=== PATIENT | female | born 1970 | race Caucasian/White ===

== ENCOUNTER → 2018-06-19 11:52 | Outpatient (CLI) | payer BC, SELFPAY ==
[2018-06-21 11:59] LABS: HPV Reflexed? NOT INDICATED
== END ==
PROVIDERS: Visit Provider Obstetrics & Gynecology
DX: Z01.419 Encounter for gynecological examination (general) (routine) without abnormal findings (principal)
CPT/HCPCS: 88175; G0145

== ENCOUNTER → 2023-09-14 | Outpatient (CLI) | payer BC, SELFPAY ==
--- NOTE | 2023-09-13 | IMM_PTH ---
PATHOLOGY RESULTS PATIENT: GALINA RIVAS LOC: [facility] U#:[id number] AGE/SX: 53/F ROOM: RE09/14/[address]: Dr. Xiang Murphy MD : 1970 BED: DIS: 09/14/2023 SPEC #: [id number] RECD: 09/15/23 11:54 STATUS: ALYSSA REQ #: [id number] CAITLYN: 09/13/23 00:[address]: Xiang Murphy DEPT: IMMUNOHISTOCHEMISTRY RECD BY: Mandy Trammell ENTERED: 09/15/23 11:57 SP TYPE: IMMUNO Tissues: Abdominal wall, NOS Procedures: BCL-2 (add) BCL-6 (add) CD10 (add) CD138 (add) CD15 (add) CD20 (add) CD23 (add) CD3 (add) CD30 (add) CD43 (add) CD45 (add) CD5 (add) CD79A (add) CYCLIN (add) KAPPA (add) KI-67 (add) LAMBDA (add) P53 (add) Pankeratin (initial) PHYSICIAN & [address] [address] SPECIMEN INFORMATION: Tissue Source: Right abdominal wall mass Clinical Info: Abdominal wall mass Specimen Number: [id number] CPT code: 17935, 67533 x18 METHODOLOGY: Deparaffinized sections of prefer/formalin-fixed tissue or PAP/DQ stained slides are incubated with monoclonal/polyclonal antibodies/oligonucleotide probes. Localization is made via biotin free immunoperoxidase method. Appropriate controls are performed and reacted as expected. Results on target cell population are indicated in the following table: RESULTS: ANTIBODY / CLONE RESULT AE1-3 (AE1/AE3/PCK26) negative CD3 (PS1) positive CD5 (SP10) positive CD10 (56C6) negative CD15 (MMA) negative CD20 (L26) positive CD23 (1B12) negative CD30 (Tommie-H2) negative CD43 (L60) negative CD45 (RP2/18) positive CD79a (11E3) positive CD138 (B-A38) negative BCL-2 (bcl-2/100/D5) negative BCL-6 (WW999U/A8) negative [place] D1/BCL-1 (SP4) negative [place] (polyclonal) negative Lambda (polyclonal) negative P53 (DO-7) negative, null pattern Ki-67 (30-9) positive, low These tests were developed and their performance characteristics determined by [facility]. They may not have been cleared or approved by the [place]. Food and Drug Administration. The FDA has determined that such clearance or approval is not necessary. The above immunohistochemical/dualISH markers are ordered and reviewed by the Pathologist. INTERPRETATION: Abdominal wall mass, excisional biopsy: Benign lymph node tissue. AM:sofia 09/16/2023
--- NOTE | 2023-09-13 15:30 | MASS_PTH ---
PATHOLOGY RESULTS PATIENT: GALINA RIVAS LOC: [facility] U#:[id number] AGE/SX: 53/F ROOM: RE09/14/[address]: Dr. Xiang Murphy MD : 1970 BED: DIS: 09/14/2023 SPEC #: [id number] RECD: 09/14/23 08:41 STATUS: ALYSSA SAMY #: [id number] CAITLYN: 09/13/23 15:[address]: Xiang Murphy DEPT: SURGICAL PATHOLOGY RECD BY: Dior [place] ENTERED: 09/14/23 08:44 SP TYPE: Mass Tissues: Abdominal wall, NOS Procedures: Surgery Specimen Level IV HEADER OPERATION: Excisional biopsy of abdominal wall mass PRE-OP DIAGNOSIS: Abdominal wall mass TISSUE SUBMITTED: Right abdominal wall mass MICROSCOPIC DIAGNOSIS Right abdominal wall mass, biopsy: Benign lymph node tissue. See comment. AM:sofia 09/15/2023 COMMENT Immunohistochemistry ([id number]) supports the above diagnosis. Case has been reviewed in consultation with Dr. Jacboo who concurs with the above diagnosis. IDC:SJ MICROSCOPIC DESCRIPTION Slides are reviewed. GROSS DESCRIPTION Received in fixative is one container labeled with the patient's name and designated right abdominal wall mass. The specimen consists of two pieces of yellow adipose tissue measuring in aggregate 2.5 x 1.5 x 1.0 cm. Both pieces are bisected and reveal yellow adipose cut surfaces without area of hemorrhage, necrosis or cystic degeneration. The entire specimen is submitted in one cassette. / TONY:sofia 09/14/2023 TC:5 CPT: [id number]
== END | disposition home or self-care (01) ==
LOC: LABSPEC 08:23
PROVIDERS: Visit Provider Surgery
DX: R19.00 Intra-abdominal and pelvic swelling, mass and lump, unspecified site (principal)
CPT/HCPCS: 88304; 88305; 88341; 88342

== ENCOUNTER → 2024-03-02 | Outpatient (CLI) | payer BC, SELFPAY ==
[2024-03-07 15:08] LABS: HPV APTIMA, High Risk Negative (Negative)
== END | disposition home or self-care (01) ==
LOC: LABSPEC 16:59
PROVIDERS: Referring Provider Obstetrics & Gynecology; Visit Provider Obstetrics & Gynecology
DX: Z12.4 Encounter for screening for malignant neoplasm of cervix (principal)
CPT/HCPCS: 87624; 88175; G0145

== ENCOUNTER → 2024-03-09 | Outpatient (CLI) | payer BC, SELFPAY ==
--- NOTE | 2024-03-09 09:22 | BI_ITS ---
MAMMOGRAPHY - BILATERAL SCREENING REASON FOR EXAM: Female, 53 years old. Routine annual screening examination. PERTINENT HISTORY: Non-contributory. TECHNIQUE: Digital bilateral breast mellissa (3D mammographic acquisition) in the CC and MLO projections. 2-D mediolateral oblique (MLO) and craniocaudad (CC) views of both breasts were obtained. CAD: Full Field Digital Mammography with Computer Added Detection was performed. COMPARISON: Comparison is made with prior outside examination dated April 14, 2020. FINDINGS: Breast Composition: The breasts are heterogeneously dense, which may obscure small masses. There are no dominant masses or suspicious calcifications. Stable small benign-appearing bilateral axillary lymph nodes. No other significant abnormalities are identified. There has been no significant change since the prior study. BI/SCRN MAMM (CAD)W/MELLISSA BILAT IMPRESSION: Stable bilateral screening mammogram. Yearly follow-up mammogram recommended. (A) ASSESSMENT CATEGORY: BIRADS Category 2: Benign. A letter regarding these results will be sent to the patient by the facility within 30 days. Approximately 10% of breast cancers are not detected by mammography. A normal mammogram should not delay biopsy of a clinically suspicious abnormality. [id number] Electronically Signed: Lui Medrano MD at 10:05 EDT ,
== END | disposition home or self-care (01) ==
LOC: OPBI 09:20
PROVIDERS: Referring Provider Obstetrics & Gynecology; Visit Provider Obstetrics & Gynecology
DX: Z12.31 Encounter for screening mammogram for malignant neoplasm of breast (principal)
CPT/HCPCS: 77063; 77067

== ENCOUNTER → 2025-03-26 | Outpatient (CLI) | payer BC, SELFPAY ==
--- NOTE | 2025-03-26 07:57 | BI_ITS ---
EXAM: SCRN MAMM (CAD)W/MELLISSA BILAT DATE: 03/26/2025 CLINICAL HISTORY: F, Age 54 y/o , SCREENING MAMMOGRAM FOR BREAST CANCER TECHNIQUE: SCRN MAMM (CAD)W/MELLISSA BILAT No family history. COMPARISON: Prior exam(s) dated March 09, 2024.. FINDINGS: TISSUE DENSITY: The breasts are heterogeneously dense, which may obscure small masses. Bilateral Breast Mammographic Findings: No significant masses, calcifications or other abnormalities are identified. No suspicious masses, areas of developing architectural distortion, or suspicious calcifications. There has been no significant interval change. BI/SCRN MAMM (CAD)W/MELLISSA BILAT IMPRESSION: Stable examination. OVERALL FINAL ASSESSMENT BI-RADS 1: NEGATIVE. RECOMMEND ANNUAL MAMMOGRAPHIC SCREENING. RECOMMENDATION: Routine annual follow-up in 1 Year A letter with findings and recommendations will be mailed to the patient. Reading Location: [place] [address]
== END | disposition home or self-care (01) ==
LOC: OPBI 07:55
PROVIDERS: Referring Provider Obstetrics & Gynecology; Visit Provider Obstetrics & Gynecology
DX: Z12.31 Encounter for screening mammogram for malignant neoplasm of breast (principal)
CPT/HCPCS: 77063; 77067

== ENCOUNTER → 2025-04-01 | Outpatient (CLI) | payer BC, SELFPAY ==
--- NOTE | 2025-04-01 07:46 | US_ITS ---
PROCEDURE: BREAST LIMITED UNILATERAL 04/01/2025 REASON FOR EXAM: F, Age 54 y/o , ABNORMAL MAMMOGRAM OF LEFT BREAST COMPARISON: Prior mammogram dated March 26, 2025.. TECHNIQUE: BREAST LIMITED UNILATERAL FINDINGS: The lower inner quadrant of the left breast was examined with ultrasound. The mammographic abnormality corresponds to a 7 mm x 4 mm x 6 mm hypoechoic irregular density with posterior shadowing at the 9 o'clock position of the breast at 5 cm from the nipple. Biopsy recommended. US/Breast Limited Unilateral IMPRESSION: The mammographic abnormality corresponds to a 7 mm x 4 mm x 6 mm ill-defined hy poechoic nodular density at the 9 o'clock position of the breast at 5 cm from the nipple. There is evidence of posterior acoustic al shadowing. Biopsy recommended. BI-RADS 4: SUSPICIOUS ABNORMALITY. RECOMMENDATION: Biopsy Recommended Reading Location: [place] [address]
--- OUTSIDE RECORDS SUMMARY | 2025-04-01 08:07 | XMS RPT_ITS | CCD ---
Author Organization [facility] Care Team Providers Care City Auditor Name Role Phone Toney Agrawal Unavailable Unavailable Newbill, Toney Hairstonel Unavailable Unavailable No Doctor Assigned, Nodr Unavailable Unavail able Josiah, Ramiro K Unavailable Unavailable Josiah, Ramiro K Unavailable Unavailable No Doctor Assigned, Nodr Unavailable Unavail able Tanja, Toney Hairstonel Unavailable Unavailable Newbill, Toney Hairstonel Unavailable Unavailable No Doctor Assigned, Nodr Unavailable Unavail able Darya Dumas M Unavailable Unavailable ShrinerDarya M Unavailable Unavailable No Doctor Assigned, Nodr Unavailable Unavail able Vernalis TICKET ATTENDANT-Cash COOK Primary Care Provider Rodrigo, Mrs. Cash Beardenn Referring Unavailabl e Rodrigo, Mrs. Cash Beardenn Primary Care Unavailabl e Rodrigo, Mrs. Cash Beardenn Attending Unavailabl e Rodrigo, Mrs. Cash Beardenn Referring Unavailabl e Vernalis, Mrs. Cash Beardenn Primary Care Unavailabl e Rodrigo, Mrs. Cash Beardenn Attending Unavailabl e No, Physician Primary Care Provider Unavailabl e NO, PHYSICIAN Primary Care Unavailable ORVILLE CID Attending Unavailable RIKKI CHAVEZ Attending Unavailable ANALISA AGUAYO Admitting Unavailab le NO, PHYSICIAN Primary Care Unavailable ANALISA AGUAYO Referring Unavailab le RIKKI CHAVEZ Attending Unavailable ANALISA AGUAYO Admitting Unavailab ANALISA Villatoro Referring Unavailab le NO, PHYSICIAN Primary Care Unavailable ANALISA AGUAYO Attending Unavailab ANALISA Villatoro Admitting Unavailab le NO, PHYSICIAN Primary Care Unavailable RIKKI CHAVEZ Attending Unavailable ANALISA AGUAYO Admitting Unavailab ANALISA Villatoro Referring Unavailab le NO, PHYSICIAN Primary Care Unavailable ENDER FRANKLIN Attending Unavailable ANALISA AGUAYO Admitting Unavailab ANALISA Villatoro Referring Unavailab le NO, PHYSICIAN Primary Care Unavailable ANALISA AGUAYO Referring Unavailab le ASHLEY MORALES Attending Unavailable ANALISA AGUAYO Admitting Unavailab le NO, PHYSICIAN Primary Care Unavailable JIGNESH, RIKKI Attending Unavailable ANALISA AGUAYO Admitting Unavailab le NO, PHYSICIAN Primary Care Unavailable ANALISA AGAUYO Referring Unavailab le JIGNESH, RIKKI Attending Unavailable ANALISA AGUAYO Admitting Unavailab le NO, PHYSICIAN Primary Care Unavailable ANALISA AGUAYO Referring Unavailab le JIGNESH, RIKKI Attending Unavailable ANALISA AGUAYO Admitting Unavailab le CATRACHITO, ANALISA PATRICK Referring Unavailab le NO, PHYSICIAN Primary Care Unavailable JIGNESH, RIKKI Attending Unavailable ANALISA AGUAYO Referring Unavailab le CATRACHITO, ANALISA PATRICK Admitting Unavailab le NO, PHYSICIAN Primary Care Unavailable JIGNESH, RIKKI Attending Unavailable ANALISA AGUAYO Admitting Unavailab le CATRACHITOANALISA RAMIREZ Referring Unavailab le NO, PHYSICIAN Primary Care Unavailable JIGNESH, RIKKI Attending Unavailable ANALISA AGUAYO Admitting Unavailab le ANALISA AGUAYO Referring Unavailab le NO, PHYSICIAN Primary Care Unavailable JIGNESH, RIKKI Attending Unavailable ANALISA AGUAYO Admitting Unavailab le ANALISA AGUAYO Referring Unavailab le NO, PHYSICIAN Primary Care Unavailable JIGNESH, RIKKI Attending Unavailable ANALISA AGUAYO Admitting Unavailab le ANALISA AGUAYO Referring Unavailab le NO, PHYSICIAN Primary Care Unavailable JIGNESH, RIKKI Attending Unavailable ANALISA AGUAYO Admitting Unavailab le ANALISA AGUAYO Referring Unavailab le NO, PHYSICIAN Primary Care Unavailable ANALISA AGUAYO Referring Unavailab le ASHLEY MORALES Attending Unavailable ANALISA AGUAYO Admitting Unavailab le NO, PHYSICIAN Primary Care Unavailable ANALISA AGUAYO Referring Unavailab le JIGNESH, RIKKI Attending Unavailable ANALISA AGUAYO Admitting Unavailab le NO, PHYSICIAN Primary Care Unavailable NO, PHYSICIAN Primary Care Unavailable LEATHA HI Admitting Unavailable LEATHA HI Referring Unavailable NO, PHYSICIAN Primary Care Unavailable LEATHA HI Attending Unavailable ANALISA AGUAYO Referring Unavailab le CATRACHITOANALISA RAMIREZ Admitting Unavailab le NO, PHYSICIAN Primary Care Unavailable NO, PHYSICIAN Primary Care Unavailable ANALISA AGUAYO Attending Unavailab le NO, PHYSICIAN Primary Care Unavailable CATRACHITO, ANALISA PATRICK Referring Unavailab le CATRACHITO, ANALISA PATRICK Admitting Unavailab le NO, PHYSICIAN Primary Care Unavailable CATRACHITO, ANALISA PATRICK Attending Unavailab le NO, PHYSICIAN Primary Care Unavailable CATRACHITO, ANALISA PATRICK Attending Unavailab le CATRACHITO, ANALISA PATRICK Referring Unavailab le CATRACHITO, ANALISA PATRICK Admitting Unavailab le NO, PHYSICIAN Primary Care Unavailable NO, PHYSICIAN Primary Care Unavailable CATRACHITO, ANALISA PATRICK Attending Unavailab le Adenike Fonseca DO, Dr. Mera Attending Provider Dr. Samaria Correa DO Referring Provider Care Physician, No Primary Primary Care Provider Unavailable Care Physician, No Primary Referring Provider Un marty Rodríguez MD, Dr. Salena Mortensen Attending Provider Samaria Correa Attending Unavailabl e Care Physician, No Primary Primary Care Unava ilable Care Physician, No Primary Referring Unava ilSalena Hutchinson Attending Unavailable Salena Rodríguez Referring Unavailable Care Physician, No Primary Primary Care Unava ilable Salena Rodríguez Attending Unavailable Care Physician, No Primary Primary Care Unava ilable Samaria Correa Attending Unavailabl e Samaria Correa Referring Unavailabl e Medications Current Medications Medication Drug Class(es) Dates Sig (Normalized) Sig (Original) acetaminophen 500 mg oral tablet (20 sources) take 2 tablets by mouth every six hours as needed for pain acetaminophen (TYLENOL) 500 MG tablet Take 2 (two) tablets (1,000 mg total) by mouth every 6 (six) hours as needed for pain . Active acetaminophen 325 mg / HYDROcodone bitartrate 5 mg oral tablet (2 sources) Opioid Agonist Start: 09-18-2024 End: 09-25-2024 take 1 tablet by mouth every four hours as needed for pain HYDROcodone-acetami nophen (NORCO) 5-325 mg per tablet Indications: Closed fracture of left wrist, initial encounter Take 1 (one) tablet by mouth every 4 (four) hours as needed for pain Start: 09/18/24. 40 tablet 09/18/2024 09/25/2024 Active Start: 09-11-2024 End: 09-18-2024 take 1 tablet by mouth once in the evening as needed, then take 2 tablets by mouth every four hours as needed HYDROcodone-acetaminophen (NORCO) 5-325 mg per tablet Indications: Closed fracture of left wrist, initial encounter Take 1 (one) tablet to 2 (two) tablets by mouth every 4 (four) hours as needed . 30 tablet 09/11/2024 4:19 PM EST 09/11/2024 09/18/2024 Active acetaminophen 325 mg / oxyCODONE hydrochloride 5 mg oral tablet (2 sources) Opioid Agonist Start: 09-06-2024 End: 09-11-2024 oxyCODONE-acetaminophen (PERCOCET) 5-325 mg per tablet Indications: Closed fracture of left wrist, initial encounter Take 1 (one) tablet by mouth every 6 (six) hours as needed for pain (Days supply per fill: 5) . 20 tablet 09/06/2024 09/11/2024 Active AquaSculpt capsule (1 source) Start: 03-29-2025 AquaSculpt capsule Active PO March 29, 2025 12:00am cephalexin 500 mg oral capsule (1 source) Cephalosporin Antibacterial Start: 09-11-2024 End: 09-18-2024 take 1 capsule by mouth three times daily in the evening cephALEXin (KEFLEX) 500 MG capsule Take 1 (one) capsule (500 mg total) by mouth 3 (three) times a day for 7 days . 21 capsule 09/11/2024 4:19 PM EST 09/11/2024 09/18/2024 Active doxycycline hyclate 100 mg oral tablet (3 sources) Tetracycline-class Drug Start: 10-12-2024 End: 10-22-2024 take 1 tablet by mouth twice daily doxycycline hyclate (VIBRA-TABS) 100 MG tablet Indications: Closed fracture of left wrist with routine healing, subsequent encounter Take 1 (one) tablet (100 mg total) by mouth 2 (two) times a day for 10 days . 20 tablet 10/12/2024 10/22/2024 Active ketorolac tromethamine 10 mg oral tablet (2 sources) Nonsteroidal Anti-inflammatory Drug, Cyclooxygenase Inhibitor Start: 09-06-2024 take 1 tablet by mouth three times daily as needed for pain ketorolac (TORADOL) 10 mg tablet Take 1 (one) tablet (10 mg total) by mouth 3 (three) times a day as needed for pain . 15 tablet 09/06/2024 Active Problems Problem Classification Problem Date Documented Da te Episodic/Chronic Abdominal hernia (1 source) Umbilical hernia without obstruction or gangrene; Translations: [Umbilical hernia without obstruction or gangrene] Onset: 05-09-2023 Episodic Administrative/social admission (1 source) Worried well; Translations: [Person with feared health complaint in whom no diagnosis is made] 04-14-2023 Episodic Endometriosis (20 sources) Endometriosis (clinical); Translations: [Endometriosis, unspecified] Onset: 11-05-2005 04-14-2023 Chronic Fracture of upper limb (20 sources) Closed Colles' fracture; Translations: [Colles' fracture of left radius, initial encounter for closed fracture] Onset: 09-06-2024 09-10-2024 Episodic Other aftercare (2 sources) Encounter for follow-up examination after completed treatment for conditions other than malignant neoplasm; Translations: [Encounter for follow-up examination after completed treatment for conditions other than malignant neoplasm] Onset: 09-10-2024 Episodic Other diseases of kidney and ureters (1 source) Cyst of kidney, acquired; Translations: [Cyst of kidney, acquired] Onset: 05-09-2023 Episodic Other female genital disorders (1 source) History of endometriosis; Translations: [Personal history of other diseases of the female genital tract] 04-14-2023 Episodic Other gastrointestinal disorders (1 source) Finding of abdomen; Translations: [Right upper quadrant abdominal swelling, mass and lump] 04-14-2023 Episodic Other gastrointestinal disorders (2 sources) Right upper quadrant abdominal swelling, mass and lump; Translations: [Right upper quadrant abdominal swelling, mass and lump] Onset: 04-20-2023 Episodic Other injuries and conditions due to external causes (2 sources) Other injury of unspecified body region, initial encounter; Translations: [Other injury of unspecified body region, initial encounter] Onset: 11-23-2024 Episodic Other nutritional; endocrine; and metabolic disorders (1 source) Body mass index 30+ - obesity; Translations: [Obesity, unspecified] 04-14-2023 Chronic Other screening for suspected conditions (not mental disorders or infectious disease) (1 source) Abnormal findings on diagnostic imaging of other specified body structures; Translations: [Abnormal findings on dx imaging of oth body structures] Onset: 05-09-2023 Chronic Other screening for suspected conditions (not mental disorders or infectious disease) (4 sources) Mammography abnormal; Translations: [Other abnormal and inconclusive findings on diagnostic imaging of breast] Onset: 03-26-2025 03-29-2025 Episodic Other skin disorders (2 sources) Nodule of skin of abdomen; Translations: [Localized swelling, mass and lump, trunk] 09-22-2023 Episodic Regional enteritis and ulcerative colitis (20 sources) Crohn's disease of small AND large intestines; Translations: [Crohn's disease of both small and large intestine without complications] Onset: 09-24-2015 09-10-2024 Chronic Residual codes; unclassified (1 source) Postmenopausal state; Translations: [Asymptomatic menopausal state] 04-14-2023 Episodic Unclassified (2 sources) Closed fracture of left wrist 09-17-2024 Unclassified (2 sources) Injury Onset: 09-10-2024 Results Test Name Value Interpretation Reference Range Facility Surgery Visit Reporton 03-29 Surgery Visit Report [facility] [address] [place] [address] OFFICE VISIT Date of Service: 03/29/25 MR#: [id number] Acct: [id number] Name: GALINA SERRA Rep #: [id number] : 1970 Provider: Dr. Salena ruffin MD Age/Sex: 54/F Location: [facility] Status: Signed Intake Vital Signs 03/05/25 11:16 03/29/25 09:58 Height 5 ft 4 in 5 ft 4 in Weight: 182 lb 6 oz BMI 31.3 BP 118/89 H Blood Pressure Location Rt brachial Position Sitting Respiration 18 Pulse 74 Pulse Source Monitor Temp 97.2 F L Temp Source Temporal Pulse Oximetry (%) 99 Oxygen Delivery Method room air Intake Visit Reasons: BIRADS 4- MAMMO ONLY Chief Complaint: BIRADS 4- MAMMO ONLY Accompanied by: Is patient in pain?: No Allergies No Known Allergies Allergy (Verified 03/29/25 09:59) Medications ???Medication ???Instructions ???Recorded ???Confirmed ???Type AquaSculpt PO 03/29/25 History PFSH Medical History (Updated 03/29/25 @ 09:58 by Samira Lara LPN) Abnormal mammogram Surgical History H/O excision of mass Family History Uncle Myocardial infarction x3 Social History Smoking Status: Never smoker alcohol intake: never substance use type: does not use caffeine: No what type of physical activity do you participate in: none seatbelt use: always do you feel safe at home: Yes additional social history: - Analisa HPI HPI HPI: The patient is a 54-year-old female who presents today for discussion of a left breast biopsy. She underwent screening mammogram which was initially read as stable however it was later read read to show that there was some architectural distortion. Only further recommendation from radiology was biopsy was recommended. No ultrasound was obtained or recommended. Patient denies any family history of breast cancer. She herself denies any breast issues or complaints. She denies any breast tenderness, masses or nipple discharge. ROS General General: No weight change, appetite, fatigue, colon cancer, breast cancer or weakness HEENT HEENT: No difficulty swallowing, eye injury, eye surgery, swollen glands or hoarseness Endo Endocrine: No thyroid disease, diabetes mellitus, thyroid cancer, Hair loss, heat intolerance or cold intolerance Skin Skin: No rash or changing moles Breast Breast: Yes abnormal mammogram; No left breast lump, right breast lump, nipple discharge, breast pain, abnormal US or breast enlargement Musc Musculoskeletal: No back problems, arthritis, rheumatoid arthritis, gout or joint pain Cardio Cardiovascular: No murmur, pacemaker, heart disease, atrial fibrillation, high blood pressure, heart attack, heart stent, palpitations, shortness of breath with exertion or chest pain Psych Psychiatric: No depression, anxiety or hearing voices Resp Respiratory: No shortness of breath, No sleep apnea, No cough, No COPD, No asthma, No emphysema and No wheezing Gastro Gastrointestinal: No abdominal pain, No nausea or vomiting, No diarrhea, No constipation, No blood in stool, No acid reflux, No hemorrhoids, No ulcers, No gallbladder problem and No black,tarry stools Erlin Hematologic: No blood thinners, No blood disorders, No bleeding, No anemia and No blood clots Neuro Neurologic: No numbness, No tingling and No weakness Exam Const General: cooperative and comfortable HENCO Head: normal to inspection Eyes General: appearance normal, both eyes and all related structures Neck Neck: normal visual inspection Chest Breast Palpation: Yes normal palpation of the breasts and Yes normal palpation of the axillae Assessment and Plan Assessment and Plan (1) Abnormal mammogram: Status: Acute Orders: Orders Breast Limited Unilateral Today R92.8 - Other abnormal and inconclusive findings on diagnostic imaging of breast Patient Instructions: The patient is a 54-year-old female with an abnormal left breast mammogram showing a new area of architectural distortion per radiology. Biopsy was recommended. I offered her stereotactic biopsy. However, I also suggested that we get an ultrasound to investigate this area as well. I would like to get the ultrasound resulted before the biopsy. Patient is agreeable this plan. This will be scheduled in a timely manner. Coding Level of Care Code Off vis,new,level 4 Diagnoses Abnormal mammogram R92.8 03/29/25 1056 Date Salena Rodríguez MD Cosigner Signature: Date (if applicable) (more content not included)... Normal [facility] SCRN MAMM (CAD)W/MELLISSA BILATo n 03-26-2025 SCRN MAMM (CAD)W/MELLISSA BILAT [facility] [address] [place] [address] SCRN MAMM (CAD)W/MELLISSA BILAT MR#: [id number] Acct: [id number] Name: GALINA SERRA Rep #: [id number] : 1970 F 54 From: Lui kent MD PCP: Care Physician,No Primary Status: REG CLI Study: SCRN MAMM (CAD)W/MELLISSA BILAT Date of Exam: 05/13 Exam# [id number] Ordering Dr: Samaria Correa DO ADDENDUM by Dr. Lui Medrano MD on 03/26/25 at 1102 This is an addendum report. There is evidence of focal architectural distortion in the deep medial inferior aspect of the left breast. Biopsy recommended. BI-RADS category 4. Reading Location: [facility]-1 03/26/25 1103 Date cc: Dr. Samaria Correa DO; No Primary Care Physician * Signed EXAM: SCRN MAMM (CAD)W/MELLISSA BILAT DATE: 03/26/2025 CLINICAL HISTORY: F, Age 54 y/o , SCREENING MAMMOGRAM FOR BREAST CANCER TECHNIQUE: SCRN MAMM (CAD)W/MELLISSA BILAT No family history. COMPARISON: Prior exam(s) dated March 09, 2024.. FINDINGS: TISSUE DENSITY: The breasts are heterogeneously dense, which may obscure small masses. Bilateral Breast Mammographic Findings: No significant masses, calcifications or other abnormalities are identified. No suspicious masses, areas of developing architectural distortion, or suspicious calcifications. There has been no significant interval change. BI/SCRN MAMM (CAD)W/MELLISSA BILAT IMPRESSION: Stable examination. OVERALL FINAL ASSESSMENT BI-RADS 1: NEGATIVE. RECOMMEND ANNUAL MAMMOGRAPHIC SCREENING. RECOMMENDATION: Routine annual follow-up in 1 Year A letter with findings and recommendations will be mailed to the patient. Reading Location: [facility]--1 CC: Dr. Samaria Correa DO; No Primary Care Physician Junior Financial Analyst: Signed Normal [facility] Layboy Tender Office Visit Reporton 03-05-2025 Layboy Tender Office Visit Report [facility], [address] [place] [address] OFFICE VISIT Date of Service: 03/05/25 MR#: [id number] Acct: [id number] Name: GALINA SERRA Rep #: [id number] : 1970 Provider: Dr. 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 Is patient in pain?: No Allergies No Known Allergies Allergy (Verified 03/05/25 11:15) Medications ???Medication ???Instructions ???Recorded ???Confirmed ???Type NK 07/01/23 03/05/25 History Post menopausal: No Patient : No : No PFSH Surgical History H/O excision of mass Family History Uncle Myocardial infarction x3 Social History (Updated 03/05/25 @ 11:16 by Rianna Reed) Smoking Status: Never smoker alcohol intake: never substance use type: does not use caffeine: No what type of physical activity do you participate in: none seatbelt use: always do you feel safe at home: Yes additional social history: - Analisa History 2 Elective abortions Hx Para 2 Spontaneous abortions Hx # Term Pregnancies Ectopic pregnancies Hx # Pregnancies Multiple births # of living children Past Pregnancies Del. Date Name GA/Weeks Outcome Route Bth Weight Infant Gen Labor Lgth Anesthesia Del Locatn Provider FOB Unknown Yamel Unknown [place] [facility] Encounter for routine gynecological examination Details: GALINA SERRA is a 54 year old who presents for annual exam. Last PAP:03/02/2024 History of abnormal PAP: n/a Last mammogram: 03/09/2024 History of abnormal mammogram: no Colon cancer screening: up to date Other preventative health care screenings: followed by pcp, no longer pre-diabetic. recently lost 20 pounds on purpose. Female Reproductive History Questions: metorrhagia: No, sexually active: Yes, dyspareunia: No and PCB: No Menopausal Symptoms: No hot flashes, No night sweats, No weight change, No mood changes, No difficulty concentrating, No sleep problems and No change in libido ROS Const Constitutional: Reports as per HPI; Denies fatigue, increased appetite, poor appetite, night sweats, weight gain or weight loss Cardio Card: Denies chest pain Resp Resp: Denies cough or dyspnea GI GI: Reports as per HPI; Denies abdominal pain, bloating, constipation, nausea or vomiting : Reports as per HPI and other; Denies difficulty voiding, dysuria, hematuria, hot flashes, nipple discharge, pelvic pain, prolapse symptoms, urinary frequency, urinary incontinence, urinary urgency, vaginal discharge, vaginal dryness, vaginal odor or vaginal pruritus Skin Skin/Breast: Denies changing lesions, breast mass, breast pain, breast skin changes or nipple discharge Psych Psych: Denies anxiety, change in libido, depression or difficulty concentrating Exam Const General: cooperative, healthy appearing, comfortable, no acute distress, well developed and well groomed HENMT Head: normal to inspection and normocephalic Ears: hearing grossly normal bilaterally and external ears normal Nose: external nose normal Face and sinus: normal facial exam Neck Neck: normal visual inspection, full ROM and no lymphadenopathy Thyroid: thyroid normal Chest Chest palpation inspection: normal inspection of the chest Breast inspection: normal inspection of the breasts and normal inspection of the axillae Breast palpation: normal palpation of the breasts, normal palpation of the axillae and no axillary lymphadenopathy Resp Effort Inspection: normal respiratory effort GI Inspection: normal to inspection and non-distended Palpation: soft, no hepatosplenomegaly and no guarding General: bladder normal to palpation External Female Exam: normal external appearance, normal appearance of the urethra and no lesions Urethra: normal appearance of the urethra and normal palpation Speculum Exam - Vagina: normal appearance of the vagina and normal vaginal discharge Speculum Exam - Cervix: normal appearance of the cervix, no cervical discharge, no lesions and nontender Bimanual Exam- Vagina Uterus: normal bimanual exam, uterine size normal, bladder normal to palpation, No tender, uterine mobility normal, consistency normal, non-tender and no cervical motion tenderness Bimanual Exam- Adnexa, other: normal adnexae, no masses and non-tender Skin General: no rashes or lesions noted Neuro General: patient alert, moves all extremities and no foca (more content not included)... Normal [facility] XR WRIST LEFT 2 VIEWSon 03-0 7-2025 XR WRIST LEFT 2 VIEWS EXAMINATION: XR WRIST LEFT 2 VIEWS 11/23/2024 1:28 pm HISTORY: ORDERING SYSTEM PROVIDED HISTORY: Fracture, TECHNOLOGIST PROVIDED HISTORY: Injury/Trauma Reason for exam: P/O Left wrist ORIF 09/11/25 Cancer History: no Surgery, RadiationHistory: none Encounter Type: Subsequent/Follow-up Mechanism of injury: Fall down steps ORDERING SYSTEM PROVIDED DIAGNOSIS CODES: T14.8XXA Fracture COMPARISON: 10/26/2024. FINDINGS: Two views of the left wrist were obtained. There are postsurgical findings of volar plate and screw fixation distal radius. Fracture line is poorly visualized on today's study. Ulnar styloid fracture appears similar to prior. Soft tissue edema noted around the wrist. IMPRESSION: Near complete healing of distal radius fracture, status post ORIF. Similar appearance ulnar styloid fracture. [facility] Workstation ID: [id number] Dictated by: SALENA LO on TueNov 23, 2024 4:08:58 PM EST Transcribed by: SUSAN GILMORE on TueNov 23, 2024 4:19:24 PM EST Finalized by: SALENA LO on TueNov 23, 2024 4:21:05 PM EST Normal [facility] Comment on above: Order Comment: Injury/Trauma or Illness? :Injury/Trauma How long have you had these symptoms (acute/chronic)?:Acute Reason for exam?:P/O Left wrist ORIF 09/11/25 History of cancer?:no Surgeries, chemotherapy, or radiation?:none Type of Exam?:Subsequent/Follow-up Mechanism of injury?:Fall down steps XR WRIST LEFT 2 VIEWSon XR WRIST LEFT 2 VIEWS EXAMINATION: XR WRIST LEFT 2 VIEWS 10/26/2024 2:45 pm HISTORY: ORDERING SYSTEM PROVIDED HISTORY: Follow-up exam, TECHNOLOGIST PROVIDED HISTORY: Injury/Trauma Reason for exam: P/O left wrist ORIF 09/11/24 Cancer History: no Surgery, RadiationHistory: none Encounter Type: Subsequent/Follow-up Mechanism of injury: Fell down steps ORDERING SYSTEM PROVIDED DIAGNOSIS CODES: Z09 Follow-up exam COMPARISON: Radiographs left wrist 09/28/2024. FINDINGS: There are postsurgical changes again seen from prior open reduction internal fixation of a comminuted fracture of the distal radius and the fracture remains in near anatomic alignment. There appears to have been interval progressive healing of this fracture. No hardware complication is seen. There is a small 3 mm cortical avulsion fracture of the tip of the ulnar styloid process again seen to be displaced distally 2 mm. No new fracture is seen. IMPRESSION: 1. Progressive interval healing of a comminuted fracture of the distal radius without evidence of hardware complication from prior open reduction internal fixation. 2. Similar appearance of a small displaced cortical avulsion fracture of the tip of the ulnar styloid process. Workstation ID: [id number] Dictated by: MARY ELLEN RENTERIA on TueOct 30, 2024 11:33:27 AM EST Transcribed by: MARY ELLEN RENTERIA on TueOct 30, 2024 11:33:27 AM EST Finalized by: MARY ELLEN RENTERIA on TueOct 30, 2024 11:33:27 AM EST Normal [facility] Comment on above: Order Comment: Injury/Trauma or Illness? :Injury/Trauma How long have you had these symptoms (acute/chronic)?:Acute Reason for exam?:P/O left wrist ORIF 09/11/24 History of cancer?:no Surgeries, chemotherapy, or radiation?:none Type of Exam?:Subsequent/Follow-up Mechanism of injury?:Fell down steps XR WRIST LEFT 2 VIEWSon 09-19 XR WRIST LEFT 2 VIEWS EXAMINATION: XR WRIST LEFT 2 VIEWS 09/28/2024 3:45 pm HISTORY: Fracture Injury/Trauma or Illness?:Injury/Trauma How long have you had these symptoms (acute/chronic)?:Acute Reason for exam?:p/o left wrist ORIF 09/11/24 History of cancer?:no Surgeries, chemotherapy, or radiation?:none T14.8XXA Fracture COMPARISON: 09/10/2024 TECHNIQUE: PA and lateral FINDINGS: There has been interval placement of a volar fixation plate and screws transfixing the distal radial fracture. Alignment appears anatomic. There is avulsion of a small crescentic fragments from the tip of the ulnar styloid with lateral displacement, partially reduced. There is a probable nonacute dorsal triquetral avulsion fracture. IMPRESSION: ORIF distal radial fracture. Workstation ID: [id number] Dictated by: BENITA BLOOD on Sat Sep 29, 2024 10:51:31 AM EST Transcribed by: BENITA BLOOD on Sat Sep 29, 2024 10:51:31 AM EST Finalized by: BENITA BLOOD on Sat Sep 29, 2024 10:51:31 AM EST Normal [facility] Comment on above: Order Comment: Injury/Trauma or Illness? :Injury/Trauma How long have you had these symptoms (acute/chronic)?:Acute Reason for exam?:p/o left wrist ORIF 09/11/24 History of cancer?:no Surgeries, chemotherapy, or radiation?:none Type of Exam?:Subsequent/Follow-up Mechanism of injury?:fall down basement steps OP NOTEon 09-11-2024 OP NOTE ATTENDING PHYSICIAN ANALISA AGUAYO MD PRIMARY CARE PHYSICIAN PHYSICIAN NO ADMITTING PHYSICIAN ANALISA AGUAYO MD PREOPERATIVE DIAGNOSE Intra-articular displaced comminuted left distal radius fracture. POSTOPERATIVE DIAGNOSIS Intra-articular displaced comminuted left distal radius fracture. PROCEDURE Open reduction internal fixation left distal radius fracture. ANESTHESIA General anesthetic. COMPLICATIONS Intraoperative complications. SPECIMENS None. ESTIMATED BLOOD LOSS 5 cc. HISTORY Galina is a 54-year-old patient with significant history of mechanical fall sustaining the intra-articular displaced comminuted left distal radius fracture, presents for open reduction internal fixation. She explained all of the risks and complications of surgery including, but not limited to the risk of infection, bleeding, neurologic or vascular injury, the possibility of deep venous thrombosis, pulmonary embolism, myocardial infarction, stroke, or even with surgery. Explained the possibilities of continued pain, stiffness, loss of range of motion, as well as the need for future surgery. Given all the options of anesthetic per the anesthesia team and elected for a general anesthetic. PROCEDURE IN DETAIL Patient was met in the preoperative holding area where the left wrist was confirmed to be the appropriate site and marked by myself. Patient was taken to the operative suite, given preoperative Kefzol per protocol as well as a general anesthetic. Left arm was placed in proximal tourniquet. Left arm was sterilely prepped and draped using ChloraPrep solution. After sterilization of the left wrist we did our final time-out to confirm that the left wrist was the appropriate site that had been marked by myself. We then went ahead and proceeded forward with elevation of the left arm tourniquet. Skin incision was made. Flexor carpi radialis and radial artery identified and protected. At this time, the pronator quadratus was removed off the distal radial fracture. Fracture was anatomically reduced and held with a Synthes distal radial locking plate. After anatomic fixation, fluoroscopy images were saved. The tourniquet was let down. Bleeders were coagulated. Wound was irrigated. Vancomycin powder was sprinkled over the contact surface areas of the distal radial plate. Wound was then closed with 4-0 Monocryl and skin gurwinder. Patient was placed in a Mepilex dressing, cock-up wrist brace, extubated, and taken to PACU without intraoperative complication. D 09/11/2024 17:22 [id number] T 09/11/2024 17:46 MCB/MODL AUTHENTICATED BY ANALISA AGUAYO, ON 09/11/2024 18:06:59 [facility] XR OR WRIST LEFT 2 VIEWSon 1 11-12-2023 XR OR WRIST LEFT 2 VIEWS EXAMINATION: XR OR WRIST LEFT 2 VIEWS 09/11/2024. HISTORY: ORDERING SYSTEM PROVIDED HISTORY: ORIF, TECHNOLOGIST PROVIDED HISTORY: Injury/Trauma Reason for exam: ORIF Encounter Type: Subsequent/Follow-up Mechanism of injury: FALL Fluoro dose in mGy: 0.37 ORDERING SYSTEM PROVIDED DIAGNOSIS CODES: S62.102A Closed fracture of left wrist, initial encounter COMPARISON: Radiographs left wrist 09/10/2024. TECHNIQUE: RADIATION EXPOSURE: Fluoro dose in Ka,r mGy: 0.37 2 intraoperative views of the left wrist were obtained. FINDINGS: A small displaced avulsion fracture of the tip of the ulnar styloid process is again seen in similar position. There has been placement of a volar plate and multiple cortical screws in the distal radius and this fixes the comminuted intra-articular fracture of the distal radius in near anatomic alignment. An immediate interpretation of this study was not requested at the time of surgery. IMPRESSION: Interval open reduction internal fixation of a comminuted intra-articular fracture of the distal radius. Workstation ID: [id number] Dictated by: MARY ELLEN RENTERIA on TueSep 13, 2024 9:30:34 AM EST Transcribed by: MARY ELLEN RENTERIA on TueSep 13, 2024 9:30:34 AM EST Finalized by: MARY ELLEN RENTERIA on TueSep 13, 2024 9:30:34 AM EST [facility] Comment on above: Order Comment: Injury/Trauma or Illness? :Injury/Trauma How long have you had these symptoms (acute/chronic)?:Acute Reason for exam?:ORIF Type of Exam?:Subsequent/Follow-up Mechanism of injury?:FALL Fluoro time in minutes:0.35 Fluoro dose in mGy?:0.37 XR WRIST LEFT 3+ VIEWS (FERNANDO BENSON)on 09-10-2024 XR WRIST LEFT 3+ VIEWS (STANDARD) EXAMINATION: XR WRIST LEFT 3+ VIEWS (STANDARD) 09/10/2024 2:50 pm HISTORY: ORDERING SYSTEM PROVIDED HISTORY: Follow-up exam, TECHNOLOGIST PROVIDED HISTORY: Injury/Trauma Reason for exam: Left wrist fracture follow up after falling down stairs 09/06/24 Cancer History: no Surgery, RadiationHistory: none Encounter Type: Subsequent/Follow-up Mechanism of injury: Fall ORDERING SYSTEM PROVIDED DIAGNOSIS CODES: Z09 Follow-up exam COMPARISON: Left wrist 09/06/2024. FINDINGS: Frontal, oblique and lateral views for 3 views were obtained. IMPRESSION: 1. Acute comminuted impacted intra-articular fracture deformity of the distal radius is again noted. Fracture lines extend to the distal radiocarpal and distal radioulnar articulations. There is similar apex volar angulation with dorsal tilting of the distal radial articular surface with overlapping soft tissue swelling again noted. 2. Age-indeterminate avulsion fracture deformities associated with the ulnar styloid and triquetrum again suspected. 3. There is no radiopaque foreign body. SKS/cdr Workstation ID: [id number] Dictated by: SHANTI GUADARRAMA on TueSep 11, 2024 8:12:35 AM EST Transcribed by: VALENCIA GONZALES on TueSep 11, 2024 8:23:09 AM EST Finalized by: SHANTI GUADARRAMA on TueSep 11, 2024 12:02:31 PM EST Normal [facility] Comment on above: Order Comment: Injury/Trauma or Illness? :Injury/Trauma How long have you had these symptoms (acute/chronic)?:Acute Reason for exam?:Left wrist fracture follow up after falling down stairs 09/06/24 History of cancer?:no Surgeries, chemotherapy, or radiation?:none Type of Exam?:Subsequent/Follow-up Mechanism of injury?:Fall ED Prov Noteon 09-06-2024 ED Prov Note HPI: 09/06/2024, Time: @SOFIYA@ Galina Serra is a 54 y.o. female presenting to the ED for left wrist injury after tripping and falling down 7 steps landing on the tile, beginning just prior to arrival ago. The complaint has been constant, moderate in severity, and worsened by changing position. No numbness. Denies neck pain and no head injury ROS: Pertinent positives and negatives are stated within HPI, all other systems reviewed and are negative. PAST HISTORY Past Medical History: @[facility]@ Past Surgical History: has a past surgical history that includes Section. Social History: reports that she has never smoked. She has never used smokeless tobacco. She reports that she does not drink alcohol and does not use drugs. Family History: family history is not on file. The patient's home medications have been reviewed. Allergies: Patient has no known allergies. RESULTS All laboratory and radiology results have been personally reviewed by myself LABS: No results found for this or any previous visit. RADIOLOGY: Interpreted by Radiologist. XR Wrist Left 3+ Views (Standard) (Results Pending) NURSING NOTES AND VITALS REVIEWED -- The nursing notes within the ED encounter and vital signs as below have been reviewed. BP (!) 155/88 (BP Location: Left arm, Patient Position: Sitting) Pulse 77 Temp 98.2 degrees F (36.8 degrees C) (Temporal) Resp 18 Ht 5' 4 Wt 84.4 kg (186 lb) SpO2 99% BMI 31.93 kg/m Oxygen Saturation Interpretation: Normal -PHYSICAL EXAM Constitutional/General: Alert and oriented x3, well appearing, non toxic in moderate apparent pain Head: NC/AT Eyes: PERRL, EOMI Mouth: Oropharynx clear, handling secretions, no trismus Neck: Supple, full ROM, no meningeal signs Pulmonary: Lungs clear to auscultation bilaterally, no wheezes, rales, or rhonchi. Not in respiratory distress Cardiovascular: Regular rate and rhythm, no murmurs, gallops, or rubs. 2+ distal pulses Abdomen: Soft, non tender, non distended, Extremities: Moves all extremities x 4. Warm and well perfused, left wrist: Moderate tenderness and swelling and obvious deformity, neurovasc intact with good pulses and cap refill less than 2 seconds in the fingers Skin: warm and dry without rash Neurologic: GCS 15, Psych: Normal Affect ----- ED COURSE/MEDICAL DECISION MAKING --- Medications oxyCODONE-acetaminophen (PERCOCET) 5-325 mg per tablet 1 tablet (has no administration in time range) ketorolac (TORADOL) injection 30 mg (30 mg Intramuscular Given 09/06/242104) Medical Decision Making: Will apply splint and pain control with Percocet for home and orthopedic referral Counseling: The emergency provider has spoken with the patient and discussed today's results, in addition to providing specific details for the plan of care and counseling regarding the diagnosis and prognosis. Questions are answered at this time and they are agreeable with the plan. -------- IMPRESSION AND DISPOSITION -------- IMPRESSION 1. Closed fracture of left wrist, initial encounter DISPOSITION Disposition: discharged to home Patient condition is stable Summation Patient Course: Improved ED Medications administered this visit: Medications oxyCODONE-acetaminophen (PERCOCET) 5-325 mg per tablet 1 tablet (has no administration in time range) ketorolac (TORADOL) injection 30 mg (30 mg Intramuscular Given 09/06/242104) New Prescriptions from this visit: New Prescriptions oxyCODONE-acetaminophen (PERCOCET) 5-325 mg per tablet Take 1 (one) tablet by mouth every 6 (six) hours as needed for pain (Days supply per fill: 5) . ketorolac (TORADOL) 10 mg tablet Take 1 (one) tablet (10 mg total) by mouth 3 (three) times a day as needed for pain . oxyCODONE-acetaminophen (PERCOCET) 5-325 mg per tablet Take 1 (one) tablet by mouth every 6 (six) hours as needed for pain TAKE HOME PACK . Follow-up: Analisa Aguayo MD [address] [place] [phone] In 2 days Final Impression: 1. Closed fracture of left wrist, initial encounter (Please note that portions of this note were completed with a voice recognition program. Efforts were made to edit the dictations but occasionally words are mis-transcribed.) Orville Cid MD 09/06/242154 AUTHENTICATED BY ORVILLE CID, ON 09/06/2024 21:55:17 [facility] XR WRIST LEFT 3+ VIEWS (FERNANDO BENSON)on 09-06-2024 XR WRIST LEFT 3+ VIEWS (STANDARD) EXAMINATION: XR WRIST LEFT 3+ VIEWS (STANDARD) 09/06/2024 8:59 pm HISTORY: ORDERING SYSTEM PROVIDED HISTORY: Injury, TECHNOLOGIST PROVIDED HISTORY: Injury/Trauma Reason for exam: fall, pain to lt wrist Cancer History: no Surgery, RadiationHistory: none Encounter Type: Initial Mechanism of injury: fall ORDERING SYSTEM PROVIDED DIAGNOSIS CODES: COMPARISON: None IMPRESSION: FINDINGS/ 1. Comminuted intra-articular fracture of the distal radius with approximately 30 degrees dorsal angulation. 2. Displaced ulnar styloid avulsion fracture. 3. Possible avulsion fracture of the triquetrum. Correlation for point tenderness is recommend 4. Regional soft tissue swelling. No radiopaque foreign body Workstation ID: [id number] Dictated by: RENARD LARSON on TueSep 06, 2024 10:28:14 PM EST Transcribed by: RENARD LARSON on TueSep 06, 2024 10:28:14 PM EST Finalized by: RENARD LARSON on Velia Sep 06, 2024 10:28:14 PM EST Normal [facility] Comment on above: Order Comment: Injury/Trauma or Illness? :Injury/Trauma How long have you had these symptoms (acute/chronic)?:Acute Reason for exam?:fall, pain to lt wrist History of cancer?:no Surgeries, chemotherapy, or radiation?:none Type of Exam?:Initial Mechanism of injury?:fall CT ABDOMEN AND PELVIS W IV C [facility] 05-09-2023 CT ABDOMEN AND PELVIS W IV CONTRAST Patient Name: GALINA SERRA STUDY: CT ABDOMEN AND PELVIS W IV CONTRAST; 05/09/2023 10:18 am INDICATION: see dx. COMPARISON: Ultrasound dated 04/20/2023 demonstrated a suspected lipoma in the right lower quadrant ACCESSION NUMBER(S): [id number] ORDERING CLINICIAN: CASH SANCHEZ TECHNIQUE: CT of the abdomen and pelvis was performed. 12 mL Omnipaque in 500 mL oral contrast, 90 mL Omnipaque 350 IV FINDINGS: LOWER CHEST: Images of the lung bases show no infiltrate or pleural fluid. There is mild scarring in the right middle lobe and lingula ABDOMEN: LIVER: There is no hepatic mass. BILE DUCTS: There is no intrahepatic, common hepatic or common bile ductal dilatation. GALLBLADDER: The gallbladder is unremarkable. PANCREAS: The pancreas is unremarkable. SPLEEN: The spleen is unremarkable. There is no splenic mass or splenomegaly. ADRENAL GLANDS: The adrenal glands are unremarkable. KIDNEYS AND URETERS: The kidneys function symmetrically. There is a small benign subcentimeter right renal cyst. There is no intrarenal calculus or hydronephrosis. BOWEL: There is no bowel wall thickening, dilatation or obstruction. The appendix is normal. VESSELS: The abdominal and pelvic vessels are unremarkable. PERITONEUM/RETROPERITONEU M/LYMPH NODES: There is no retroperitoneal or pelvic adenopathy. There is no ascites. ABDOMINAL WALL: Specifically no lipoma is seen along the abdominal wall. There is a nonspecific 0.6 cm soft tissue nodule in the subcutaneous fat of the right lateral abdominal wall. This is not abutting the dermis. This does not abut the abdominal wall vasculature this is a nonspecific soft tissue nodule. It is not known if the patient undergoes any subcutaneous injections to suggest a soft tissue granuloma. There is a small nonindurated nonincarcerated fat containing periumbilical hernia. BONE AND SOFT TISSUE: There is no acute osseous finding. There is no soft tissue abnormality. There are bilateral Essure devices in the adnexae IMPRESSION: 1. 0.6 cm soft tissue nodule deep subcutaneous fat right lateral abdominal wall, nonspecific. 2. No lipoma abdominal wall. 3. Small nonindurated nonincarcerated fat containing periumbilical hernia. 4. Small benign right renal cyst. 5. Bilateral Essure devices. Electronically signed by: HARESH MARSHALL MD [facility] US ABDOM Ebonie 04-20-2023 US ABDOM MASS Patient Name: GALINA SERRA STUDY: US ABDOM MASS; Right; 04/20/2023 7:40 am INDICATION: lump RUQ/laterally. COMPARISON: None. ACCESSION NUMBER(S): [id number] ORDERING CLINICIAN: CASH SANCHEZ TECHNIQUE: Routine ultrasound of the right lower quadrant was performed with transverse and sagittal images submitted for interpretation. FINDINGS: In the area examined in the right lower quadrant where the patient feels a mass, a hyper echoic nodule is seen measuring 4 x 3 x 4 mm. This is compatible with a lipoma. IMPRESSION: Suspect lipoma, in the right lower quadrant where the patient complains of a mass or nodule. Follow-up with CT scanning of this area is recommended. MACRO: None Electronically signed by: ENRIQUETA SCALES MD [facility] CNOVon 03-25-2021 CNOV Office Visit (INTMWS ) ----- GALINA SERRA ([id number]) 1970 F Date Time Provider Department 03/25/21 1:00 PM REBECA PAYNE During your visit today, we recorded the following information about you: Temperature Pulse Respiration Blood pressure 97.5 degrees 85/minute 12/minute 132/62 Weight Height Last Period 89.4 kg 1.626 m 09/05/15 Rebeca Payne MD 03/25/2021 9:41 PM Signed Reason for Visit Patient presents with: Establish Care: establish care and insurance forms Galina Serra is a 50 year old female who presents here today for CPE. Health Maintenance DEPRESSION SCREENING COVID-19 VACCINE(1) HEPATITIS C SCREENING HIV SCREENING DTAP,TDAP,TD(1 - Tdap) PAP TESTING HPV TESTING MAMMOGRAM LIPID SCREEN DIABETES SCREEN SHINGRIX VACCINE(1 of 2) HPI Reviewed her labs her hba1c is 5.5. cbc, cmp are normal. The lipids show her ldl is on the higher side.. at around 135.. She bakes but tries not to eat as much as she bakes. High LDL- 20 mins of walking daily was discussed.... diet: she Has been trying to cut out carbs as much as possible. Obesity-bmi is 33... she has lost around 7 pounds in the past 2 weeks, she does her own gardening, she gardens around an hour or 2, pulling weeds and harvesting all that she has. She puts in 5 to 7 hours daily. She slows down every so often. 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 We discussed walking some time in her work as she gets up in the morning around 4 and sleeps around 10:30 And up around 4. She has been gaining weight due to menopause. It has been a year since her periods. She got her period last February, she is in official menopause. She did have her colonoscopy , had it done by Dr Mckeon The last time she had the pap And pelvic was couple years ago. Patient does snore when she is tired... she does not have issues with sleeping. Feels well, peppy most days No problem-specific Assessment AND Plan notes found for this encounter. PAST MEDICAL HISTORY Diagnosis Date - Obesity PAST SURGICAL HISTORY Procedure Laterality Date - , CLASSIC, IN-HOSP CARE 2008 - COLONOSCOP W/ OR W/O [facility] SPEC 10/07/2015 Repeat 2025 - PAST SURGICAL HISTORY OF Bilateral 1987 bone spurr removal - PAST SURGICAL HISTORY OF multiple surgies for endometriosis - TUBAL LIGATION HX 2010 FAMILY HISTORY Problem Relation Age of Onset - Cancer Maternal Uncle Social History Tobacco Use - Smoking status: Never Smoker - Smokeless tobacco: Never Used Substance Use Topics - Alcohol use: No - Drug use: No Past medical history, appointments, medications, allergies reviewed. Pertinent Lab/Diagnostic Studies are reviewed and discussed today Current Outpatient Medications: - oxyCODONE-acetaminophen (PERCOCET) 5-325 mg tablet Review of Systems CONSTITUTIONAL: No fevers, chills, nightsweats, unintended weight loss HEENT: Denies frequent or severe heaches, nasal congestion/sinus symptoms, problematic allergy problems. EYES: No diplopia or blurry vision. CARDIOVASCULAR: No chest pain, dyspnea, palpitations, orthopnea, PND, ankle edema. PULM: No dyspnea, unexplained cough. GI: No dysphagia/odynophagia, problematic reflux, constipation, diarrhea, changes in stool habits, hematochezia, melena. : No new urinary complaints, including dysuria, gross hematuria or pyuria. NEURO: No new balance problems, peripheral weakness/paresthesias or numbness of concern. MUSC-SKEL: No new joint pain, swelling, or erythema. PSY: No concerns regarding depression, anxiety or panic. INTEGUMENTARY: No new skin changes (rash, new or changing mole, new growth) Physical Exam BP 132/62 (BP Site: Left Arm, BP Position: Sitting, BP Cuff Size: Large Adult) Pulse 85 Temp 36.4 ?C (97.5 ?F) Resp 12 Ht 162.6 cm (5' 4) Wt 89.4 kg (197 lb) LMP 09/05/2015 (Exact Date) SpO2 97% BMI 33.81 kg/m? General appearance: Well appearing, alert, in no acute distress, well-hydrated, well nourished. Skin: Skin color, texture, turgor normal, no suspicious rashes or lesions Head: Normocephalic, no masses, lesions, tenderness or abnormalities Eyes: Anicteric sclera. Pupils are equally round and reactive to light. Extraocular movements are intact. Ears: External ears normal, canals clear Nose/Sinuses: Nares normal, septum midline, mucosa normal, no drainage or sinus tenderness Oropharynx: Lips, mucosa, and tongue normal, teeth and gums normal, oropharynx normal Neck: Supple, no adenopathy; thyroid symmetric, normal size, no bruits Back: Normal exam Lungs: Lungs clear to auscultation. No wheezing, rhonchi, rales Heart: RRR without murmur, gallop, or rubs. No ectopy Abdomen: Normal abdominal exam, Abdomen soft, non-tender. Bowel sounds normal. No masses, organomegaly Extremities: No deformities, edema, skin discoloration, clubbing o (more content not included)... Normal [facility] Mamm Screen w/CAD if perf and 3D Bilon 06-26-2018 Bilirubin.direct mass conc Exam Date/Time:06/23/2018 09:02 EDTReason for Exam:SCREENINGReportSTUDY :Digital mammography screening with mellissa; 06/23/2018 9:02 amACCESSION NUMBER(S):[id number] 1ORDERING CLINICIAN:Darya DumasINDICATION:Yadira ordoñez.COMPARISON:Comparison is made to prior digital mammograms dated05/31/2016 and 12/13/2014FINDINGS:CC and MLO 2D digital mammograms and digital breast tomosynthesis images were obtained of the bilateral breasts. 3-D volume images were reconstructed in 4 views at an independent workstation as 1 mm slices through the breasts in both the CC and MLO projections.There are areas of scattered fibroglandular tissue. No discrete mass or focal asymmetry is identified. No suspicious microcalcifications or foci of architectural distortion are seen. There has been no significant change.This study was interpreted with CAD.IMPRESSION:No mammographic evidence of malignancy.BI-RADS CATEGORY:Category: 1 - Negative.Recommendation: Normal Interval Follow-up, Over Age 40.Recall Interval: 12 Months.Breast Density: Scattered Fibroglandular Density. FINAL REPORT Dictated: 06/26/2018 8:36 am Lisbeth MOSHER, Julius CSigned (Electronic Signature): 06/26/2018 8:36 amSigned by: Lisbeth MOSHER, Julius Espitia Technologist: SELENAssessment: BI-RADS Category 1-NegativeRecommendation: Normal interval follow-up Normal [facility] Vital Signs Date Time Vital Sign Value Performing Clinician Facility 03-29-2025 09:58-0400 Body height 162.[address] Saamria Correa DO Work Phone: [facility] 03-29-2025 09:58-0400 Body mass index (BMI) [Ratio] 31.3 kg/m2 Dr. Samaria Correa DO Work Phone: [facility] 03-29-2025 09:58-0400 Body temperature 97.2 [degF] Dr. Samaria Correa DO Work Phone: [facility] 03-29-2025 09:58-0400 Body weight 82.[address] Samaria Correa DO Work Phone: [facility] 03-29-2025 09:58-0400 Diastolic blood pressure 89 mm[Hg] Dr. Samaria Correa DO Work Phone: [facility] 03-29-2025 09:58-0400 Heart rate 74 /min Dr. Samaria Correa DO Work Phone: [facility] 03-29-2025 09:58-0400 Respiratory rate 18 /min Dr. Samaria Correa DO Work Phone: [facility] 03-29-2025 09:58-0400 SaO2% (BldA) [Mass fraction] 99 % Dr. Samaria Correa DO Work Phone: [facility] 03-29-2025 09:58-0400 Systolic blood pressure 118 mm[Hg] Dr. Samaria Correa DO Work Phone: [facility] 03-05-2025 11:16-0400 Body height 162.[address] Samaria Correa DO Work Phone: [facility] 03-05-2025 11:16-0400 Body mass index (BMI) [Ratio] 31.2 kg/m2 Dr. Samaria Correa DO Work Phone: [facility] 03-05-2025 11:16-0400 Body weight 82.[address] Samaria Correa DO Work Phone: [facility] 03-05-2025 11:16-0400 Diastolic blood pressure 72 mm[Hg] Dr. Samaria Correa DO Work Phone: [facility] 03-05-2025 11:16-0400 Systolic blood pressure 115 mm[Hg] Dr. Samaria Correa DO Work Phone: [facility] 09-10-2024 14:21-0500 Body height 162.6 cm Leatha Hi CNP Work Phone: [facility] 09-10-2024 14:21-0500 Body mass index (BMI) [Ratio] 31.93 kg/m2 Leatha Hi CNP Work Phone: [facility] 09-10-2024 14:21-0500 Body weight 84.37 kg Leatha Hi CNP Work Phone: [facility] 04-14-2023 09:25-0400 Body height 163.2 cm 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 APRN-DIESEL AUTOMOTIVE TECHNICIAN Work Phone: [facility] 04-14-2023 09:25-0400 Body mass index (BMI) [Ratio] 33.14 kg/m2 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 APRN-DIESEL AUTOMOTIVE TECHNICIAN Work Phone: [facility] 04-14-2023 09:25-0400 Body weight 88.27 kg 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 APRN-DIESEL AUTOMOTIVE TECHNICIAN Work Phone: [facility] 04-14-2023 09:25-0400 Diastolic blood pressure 76 mm[Hg] 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 APRN-DIESEL AUTOMOTIVE TECHNICIAN Work Phone: [facility] 04-14-2023 09:25-0400 Heart rate 68 /min 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 TICKET ATTENDANT-DIESEL AUTOMOTIVE TECHNICIAN Work Phone: [facility] 04-14-2023 09:25-0400 Systolic blood pressure 116 mm[Hg] 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 TICKET ATTENDANT-DIESEL AUTOMOTIVE TECHNICIAN Work Phone: [facility] Encounters Encounter Date Encounter Type Care Provider Facility Start: 04-01-2025 ambulatory Salena Rodríguez Facility :[facility] Start: 03-29-2025 End: 03-29-[address] Salena Rodríguez MD -[facility] Work Phone: Start: 03-29-2025 End: 03-29-[address] Samaria Correa DO Work Phone: -[facility] Start: 03-26-2025 ambulatory No Primary Car e Physician Facility:[facility] Start: 03-26-[address] Samaria Correa DO -[facility] Work Phone: Start: 03-05-2025 Encounter for gynecological examination (general) (routine) without abnormal findings Samaria Correa [facility] Start: 03-05-2025 End: 03-05-[address] Samaria Correa DO -[facility] Work Phone: Start: 03-05-2025 End: 03-05-[address] Samaria Correa DO [facility] Start: 03-05-2025 End: 03-05-2025 ambulatory Samaria Correa [facility] Work Phone: Start: 11-23-2024 End: 11-23-2024 Postop follow up visit related to original px Analisa Aguayo MD Work Phone: [facility] Comment on above: Closed fracture of l eft wrist with routine healing, subsequent encounter (Primary Dx) Start: 11-23-2024 End: 11-27-2024 ambulatory ANALISA AGUAYO [facility] Start: 11-22-2024 End: 11-26-2024 ambulatory Analisa Aguayo MD Work Phone: [facility] Comment on above: Closed fracture of l eft wrist with routine healing, subsequent encounter (Primary Dx) Start: 11-20-2024 End: 11-24-2024 ambulatory Analisa Aguayo MD Work Phone: [facility] Comment on above: Closed fracture of l eft wrist with routine healing, subsequent encounter (Primary Dx) Start: 11-15-2024 End: 11-19-2024 ambulatory Analisa Aguayo MD Work Phone: [facility] Comment on above: Closed fracture of l eft wrist with routine healing, subsequent encounter (Primary Dx) Start: 11-13-2024 End: 11-17-2024 ambulatory Analisa Aguayo MD Work Phone: [facility] Comment on above: Closed fracture of l eft wrist with routine healing, subsequent encounter (Primary Dx) Start: 11-08-2024 End: 11-12-2024 ambulatory Analisa Aguayo MD Work Phone: [facility] Comment on above: Closed fracture of l eft wrist with routine healing, subsequent encounter (Primary Dx) Start: 11-06-2024 End: 11-10-2024 ambulatory Analisa Aguayo MD Work Phone: [facility] Comment on above: Closed fracture of l eft wrist with routine healing, subsequent encounter (Primary Dx) Start: 11-01-2024 End: 11-05-2024 ambulatory Analisa Aguayo MD Work Phone: [facility] Comment on above: Closed fracture of l eft wrist with routine healing, subsequent encounter (Primary Dx) Start: 10-30-2024 End: 11-03-2024 ambulatory Analisa Aguayo MD Work Phone: [facility] Comment on above: Closed fracture of l eft wrist with routine healing, subsequent encounter (Primary Dx) Start: 10-26-2024 End: 10-26-2024 Postop follow up visit related to original px Analisa Aguayo MD Work Phone: [facility] Comment on above: Closed fracture of l eft wrist with routine healing, subsequent encounter (Primary Dx) Start: 10-26-2024 End: 10-30-2024 ambulatory PHYSICIAN NO [facility] Start: 10-25-2024 End: 10-29-2024 ambulatory Analisa Aguayo MD Work Phone: [facility] Comment on above: Closed fracture of l eft wrist with routine healing, subsequent encounter (Primary Dx) Start: 10-23-2024 End: 10-27-2024 ambulatory Analisa Aguayo MD Work Phone: [facility] Comment on above: Closed fracture of l eft wrist with routine healing, subsequent encounter (Primary Dx) Start: 10-18-2024 End: 10-22-2024 ambulatory Analisa Aguayo MD Work Phone: [facility] Comment on above: Closed fracture of l eft wrist with routine healing, subsequent encounter (Primary Dx) Start: 10-16-2024 End: 10-20-2024 ambulatory Analisa Aguayo MD Work Phone: [facility] Comment on above: Closed fracture of l eft wrist with routine healing, subsequent encounter (Primary Dx) Start: 10-12-2024 End: 10-12-2024 Postop follow up visit related to original px Analisa Aguayo MD Work Phone: [facility] Comment on above: Closed fracture of l eft wrist with routine healing, subsequent encounter (Primary Dx) Start: 10-12-2024 End: 10-12-2024 Refill Suzanne Whittaker LPN [facility] Comment on above: Closed fracture of l eft wrist with routine healing, subsequent encounter (Primary Dx) Start: 10-11-2024 End: 10-15-2024 ambulatory Analisa Aguayo MD Work Phone: [facility] Comment on above: Closed fracture of l eft wrist with routine healing, subsequent encounter (Primary Dx) Start: 10-09-2024 End: 10-13-2024 ambulatory Analisa Aguayo MD Work Phone: [facility] Comment on above: Closed fracture of l eft wrist with routine healing, subsequent encounter (Primary Dx) Start: 10-04-2024 End: 10-08-2024 ambulatory Analisa Aguayo MD Work Phone: [facility] Comment on above: Closed fracture of l eft wrist with routine healing, subsequent encounter (Primary Dx) Start: 10-02-2024 End: 10-06-2024 ambulatory Analisa Aguayo MD Work Phone: [facility] Comment on above: Closed fracture of l eft wrist, initial encounter Start: 09-28-2024 End: 09-28-2024 Postop follow up visit related to original px Analisa Aguayo MD Work Phone: [facility] Comment on above: Closed fracture of l eft wrist, initial encounter (Primary Dx) Start: 09-28-2024 End: 10-02-2024 ambulatory ANALISA AGUAYO [facility] Start: 09-17-2024 End: 09-17-2024 Refill Nanette Steinberg LPN [facility] Comment on above: Closed fracture of l eft wrist, initial encounter (Primary Dx) Start: 09-11-2024 End: 09-11-2024 ambulatory ANALISA AGUAYO [facility] Start: 09-10-2024 End: 09-10-2024 Office outpatient new 30 minutes Leatha Hi CNP Work Phone: [facility] Comment on above: Closed Colles' fract ure of left radius, initial encounter (Primary Dx) Start: 09-10-2024 End: 09-14-2024 ambulatory PHYSICIAN EVELYN [facility] Start: 09-10-2024 End: 09-10-2024 Admission to same day surgery center Analisa Aguayo MD Work Phone: [facility] Comment on above: Closed fracture of l eft wrist, initial encounter (Primary Dx) Start: 09-06-2024 End: 09-06-2024 Emergency department patient visit PHYSICIAN [facility] Start: 05-09-2023 [address] Mrs. 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 Fa cility:[id number] Start: 04-20-2023 [address] Mrs[address] 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 Fa cility:[id number] Start: 04-14-2023 End: 04-14-2023 Office outpatient visit 25 minutes 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 TICKET ATTENDANT-DIESEL AUTOMOTIVE TECHNICIAN Work Phone: [facility] Comment on above: Right upper quadrant abdominal swelling, mass and lump (Primary Dx); Concern about varicose veins without diagnosis; Postmenopausal; History of endometriosis; Obesity (BMI 30-39.9) Start: 06-23-2018 End: 06-24-2018 Patient encounter Darya Dumas Facility:[facility] Start: 06-23-2018 Patient encounter [facility] ity:[id number] Start: 05-25-2018 End: 05-26-2018 Patient encounter Toneyprashant Agrawal Facility:[facility] Start: 12-31-2017 End: 01-01-2018 Patient encounter Ramiro Fanta Rahman Facility:[facility] Start: 11-07-2017 End: 11-08-2017 Patient encounter Toney Hairstonsrinivasan Agrawal Facility:[facility] Procedures Date Procedure Procedure Detail Performing Clinician Start: 03-26-2025 Screening mammography Jessee Correa DO Work Phone: Start: 04-14-2020 Mammography Cash Rodrigo TICKET ATTENDANT-DIESEL AUTOMOTIVE TECHNICIAN Work Phone: Start: 10-07-2015 Colonoscopy Leatha cornejo CNP Work Phone: Plan of Treatment Date Care Activity Detail Author Start: 10-07-2025 Screening for malignant neoplasm of colon [facility] Start: 11-23-2024 End: 11-23-2024 Follow-up encounter 11/23/2024 1:30 PM EST Follow-Up [facility] [address] [place] [id number] Analisa Aguayo MD [address] [place] [address] [facility] Start: 11-22-2024 End: 11-22-2024 ambulatory 11/22/2024 8:30 AM EST Treatment [facility] [address] [place] [address] Analisa Aguayo MD [address] [place] [address] Rikki Chavez, PT [facility] Start: 11-20-2024 End: 11-20-2024 ambulatory [facility] Start: 11-15-2024 End: 11-15-2024 ambulatory [facility] Start: 11-13-2024 End: 11-13-2024 ambulatory [facility] Start: 11-08-2024 End: 11-08-2024 ambulatory [facility] Start: 11-06-2024 End: 11-06-2024 ambulatory [facility] Start: 11-01-2024 End: 11-01-2024 ambulatory [facility] Start: 10-30-2024 End: 10-30-2024 ambulatory [facility] Start: 10-26-2024 End: 10-26-2024 Follow-up encounter 10/26/2024 2:45 PM EST Follow-Up [facility] [address] [id number] Analisa Aguayo MD [address] [place] [address] [facility] Start: 10-25-2024 End: 10-25-2024 ambulatory [facility] Start: 10-23-2024 End: 10-23-2024 ambulatory 10/23/2024 4:45 PM EST Treatment [facility] [address] [place] [phone] Analisa Aguayo MD [address] [place] [address] Rikki Chavez, PT Discharge Disposition: Home [facility] Start: 10-23-2024 End: 10-23-2024 ambulatory [facility] Start: 10-18-2024 End: 10-18-2024 ambulatory [facility] Start: 10-16-2024 End: 10-16-2024 ambulatory [facility] Start: 10-11-2024 End: 10-11-2024 ambulatory 10/11/2024 8:30 AM EST Treatment [facility] [address] [place] [address] Analisa Aguayo MD [address] [place] [address] Ashley Morales [facility] Start: 10-09-2024 End: 10-09-2024 ambulatory 10/09/2024 8:30 AM EST Treatment [facility] [address] [place] [address] Analisa Aguayo MD [address] [place] [address] Ashley Morales [facility] Start: 10-04-2024 End: 10-04-2024 ambulatory 10/04/2024 4:45 PM EST Treatment [facility] [address] [place] [address] Analisa Augayo MD [address] [place] [phone] Rikki Chavez, PT Discharge Disposition: Home [facility] Start: 09-28-2024 End: 09-28-2024 Follow-up encounter 09/28/2024 3:45 PM EST Follow-Up [facility] [address] [address] Analisa Aguayo MD [address] [place] [phone] [facility] Start: 09-11-2024 Subsequent hospital visit by physician 09/11/2024 Hospital Encounter [facility] [address] [place] [address] Analisa Aguayo MD [address] [place] [address] [facility] Start: 05-20-2024 COVID-19 Vaccine ( season) COVID-19 Vaccine ( season) [facility] Start: 05-20-2024 Influenza vaccination Influenza Vaccine (#1) [facility] Start: 04-16-2024 End: 04-16-2024 Patient encounter procedure 04/16/2024 8:30 AM EDT Office Visit [facility] [address] [place] [phone] 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, TICKET ATTENDANT-DIESEL AUTOMOTIVE TECHNICIAN [address] [facility] [place], [place] [phone] [facility] Start: 05-20-2023 Influenza vaccination Influenza Vaccine (#1) [facility] Start: 04-14-2021 Screening for malignant neoplasm of breast Mammogram [facility] Start: 2019 Administration of herpes zoster vaccine Zoster Vaccines (1 of 2) [facility] Start: 2019 Pneumococcal Vaccine: Age 50+ (1 of 1 - PCV) Pneumococcal Vaccine: Age 50+ (1 of 1 - PCV) [facility] Start: 2019 Screening for malignant neoplasm of colon Flexible sigmoidoscopy [facility] Start: 2019 Zoster Vaccines (1 of 2) Zoster Vaccines (1 of 2) [facility] Start: 05-12-2019 DTaP/Tdap/Td Vaccines (2 - Td or Tdap) DTaP/Tdap/Td Vaccines (2 - Td or Tdap) [facility] Start: 05-12-2019 Tetanus vaccination Tetanus: Every 10yrs [facility] Start: 2009 Screening for malignant neoplasm of breast Mammogram [facility] Start: 1999 Screening for malignant neoplasm of cervix [facility] Start: 1990 Screening for malignant neoplasm of cervix [facility] Start: 1987 Hepatitis C screening Hepatitis C Screening [facility] Start: 1984 HIV screening HIV Screening [facility] Start: 1981 Depression screening using PHQ-9 (Patient Health Questionnaire 9) score Depression Screening/Follow-Up (PHQ-2/9) [facility] Start: 1972 History and physical examination, annual for health maintenance Wellness Visit [facility] Start: 1970 MMR Vaccines (1 of 1 - Standard series) MMR Vaccines (1 of 1 - Standard series) [facility] Start: 1969 COVID-19 Vaccine (#1) COVID-19 Vaccine (#1) [facility] Start: 1969 Hepatitis B Vaccines (1 of 3 - 3-dose series) Hepatitis B Vaccines (1 of 3 - 3-dose series) [facility] Start: 1969 HIV screening HIV Screening [facility] Start: 1969 Lipid panel Lipid Panel [facility] Start: 1969 Screening for malignant neoplasm of colon [facility] Start: 1969 Yearly Adult Physical Yearly Adult Physical [facility] Optx dstl radl i-art ic fx/epiphysl sep 2 frag OPEN REDUCTION INTERNAL FIXATION RADIUS Closed fracture of left wrist, initial encounter [facility] Main OR US abdomen complete US abdomen c omplete Imaging Routine 04/14/2023 10:13 AM EDT [facility] Service Area Work Phone: US Breast limited [facility] Immunizations Immunization Date Immunization Notes Care Provider Fa rachellety 05-12-2009 tetanus toxoid, redu lynnette diphtheria toxoid, and acellular pertussis vaccine, adsorbed 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 TICKET ATTENDANT-DIESEL AUTOMOTIVE TECHNICIAN Work Phone: [facility] Work Phone: Payers Date Payer Category Payer Self-pay 2024 Unknown [id number] 2017 Unknown 1970 Unknown [id number] 2.16.84 0.1.153167.3.579.2.717 1969 Unknown [id number] 2.16.84 0.1.700690.3.579.2.717 1969 Unknown [id number] 2.16.84 0.1.674917.3.579.2.717 1969 Unknown [id number] 2.16.84 0.1.287099.3.579.2.717 1969 Unknown [id number] 2.16. 840.1.572752.3.579.2.356 1969 Unknown [id number] 2.16.8 40.1.962982.3.579.2.1069 1969 Unknown [id number] 2.16.8 40.1.650008.3.579.2.1069 1969 Unknown [id number] 2.16. 840.1.121072.3.579.2.902 1969 Unknown [id number] 2.16. 840.1.535877.3.579.2.903 1969 Unknown [id number] 2.16. 840.1.537984.3.579.2.903 1969 Unknown [id number] 2.16. 840.1.758885.3.579.2.903 1969 Unknown [id number] 2.16. 840.1.309151.3.579.2.903 1969 Unknown [id number] 2.16. 840.1.439831.3.579.2.903 1969 Unknown [id number] 2.16. 840.1.668075.3.579.2.90 1969 Unknown [id number] 2.16. 840.1.292234.3.579.2 1969 Unknown [id number] 2.16. 840.1.067290.3.579.2. 1969 Unknown [id number] 2.16. 840.1.097634.3.579.2 1969 Unknown [id number] 2.16. 840.1.073085.3.579.2 1969 Unknown [id number] 2.16. 840.1.490381.3.579.2 1969 Unknown [id number] 2.16. 840.1.825060.3.579.2 1969 Unknown [id number] 2.16. 840.1.967541.3.579.2 1969 Unknown [id number] 2.16. 840.1.593012.3.579.2 1969 Unknown [id number] 2.16. 840.1.429984.3.579.2 1969 Unknown [id number] 2.16. 840.1.231274.3.579.2 1969 Unknown [id number] 2.16. 840.1.219649.3.579.2 1969 Unknown [id number] 2.16. 840.1.683493.3.579.2 1969 Unknown [id number] 2.16. 840.1.676312.3.579.2 1969 Unknown [id number] 2.16. 840.1.136937.3.579.2 1969 Unknown [id number] 2.16. 840.1.745669.3.579.2 1969 Unknown [id number] 2.16. 840.1.366858.3.579.2.903 1969 Unknown [id number] 2.16. 840.1.951939.3.579.2.903 1969 Unknown [id number] 2.16. 840.1.837468.3.579.2.903 1969 Unknown [id number] 2.16. 840.1.082500.3.579.2.903 1969 Unknown [id number] 2.16. 840.1.421363.3.579.2.903 Blue Cross Blue Shield 1.2.8 40.217940.1.13.385.2.7.9.879737.335.315 Unknown [id number] Unknown [id number] Unknown [id number] 2.16.8 40.1.393958.3.579.2.462 Unknown [id number] 2.16.8 40.1.749514.3.579.2.462 Unknown [id number] 2.16.8 40.1.729629.3.579.2.462 Unknown [id number] 2.16.8 40.1.972339.3.579.2.462 Social History Date Type Detail Facility Start: 04-14-2023 End: 03-05-2025 Tobacco smoking status ARIS Never smoked tobacco [facility] Work Phone: Start: 04-14-2023 End: 09-06-2024 Tobacco use and exposure Smokeless tobacco non-user [facility] Work Phone: Start: 04-14-2023 End: 11-23-2024 Alcohol intake Lifetime non-drinker (finding) [facility] Work Phone: Start: 04-14-2023 End: 11-23-2024 History of Social function [facility] Work Phone: Start: 04-14-2023 End: 11-23-2024 Tobacco use panel [facility] Work Phone: Start: 1970 Sex Assigned At Not on file [facility] Work Phone: Start: 04-04-2023 End: 04-14-2023 Exposure to SARS-CoV-2 (event) Not sure [facility] Start: 09-07-2024 Gender identity Identifies as female gender (finding) [facility] Start: 09-07-2024 Sexual orientation Heterosexual (finding) [facility] Start: 1970 Sex Assigned At Female [facility] Medical Equipment Procedure Code Equipment Code Equipment Origin al Text Equipment Identifier Dates Plate 2.4mm 6hl Head 2hl Shaft Distal Radius Lt 02.111.621 - [id number] Start: 09-11-2024 Comment on above: Description: Load # 01-06 Screw 2.7 X 14mm Cortex Self-Tap T8 Strdrv Rec - [id number] Start: 09-11-2024 Comment on above: Description: Load # 01-06 Screw 2.4 X 18mm Wisam Ang Lock Strdrv - [id number] Start: 09-11-2024 Comment on above: Description: Load # 01-06 Screw 2.4 X 22mm Wisam Ang Lock Strdrv - [id number] Start: 09-11-2024 Comment on above: Description: Load # 01-06 Clinical Notes 03-25-2021 to 03-05-2025 Note Date & Type Note Facility 03-05-2025 Evaluation note Diagnosis Onset Date Resolution Encounter for routine gynecological examination noneactive March 05, 2025 11:07am [facility] Work Phone: [phone]) 491-243506-17-2025 Progress [facility] [address] [place] [address], [address] [place] [address] OFFICE VISIT Date of Service: 03/05/25 MR#: [id number] Acct: [id number] Name: GALINA SERRA Rep #: [id number] : 1970 Provider: Dr. 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 Is patient in pain?: No Allergies No Known Allergies Allergy (Verified 03/05/25 11:15) Medications ?Medication ?Instructions ?Recorded ?Confirmed ?Type NK 07/01/23 03/05/25 History Post menopausal: No Patient : No : No PFSH Surgical History H/O excision of mass Family History Uncle Myocardial infarction x3 Social History (Updated 03/05/25 @ 11:16 by Rianna Reed) Smoking Status: Never smoker alcohol intake: never substance use type: does not use caffeine: No what type of physical activity do you participate in: none seatbelt use: always do you feel safe at home: Yes additional social history: - Analisa History 2 Elective abortions Hx Para 2 Spontaneous abortions Hx # Term Pregnancies Ectopic pregnancies Hx # Pregnancies Multiple births # of living children Past Pregnancies Del. Date Name GA/Weeks Outcome Route Bth Weight Gen Labor Lgth Anesthesia Del [facility] Provider FOB Unknown Yamel Hedrick HPI Encounter for routine gynecological examination Details: GALINA SERRA is a 54 year old who presents for annual exam. Last PAP:03/02/2024 History of abnormal PAP: n/a Last mammogram: 03/09/2024 History of abnormal mammogram: no Colon cancer screening: up to date Other preventative health care screenings: followed by pcp, no longer pre- diabetic. recently lost 20 pounds on purpose. Female Reproductive History Questions: metorrhagia: No, sexually active: Yes, dyspareunia: No and PCB: No Menopausal Symptoms: No hot flashes, No night sweats, No weight change, No mood changes, No difficulty concentrating, No sleep problems and No change in libido ROS Const Constitutional: Reports as per HPI; Denies fatigue, increased appetite, poor appetite, night sweats, weight gain or weight loss Cardio Card: Denies chest pain Resp Resp: Denies cough or dyspnea GI GI: Reports as per HPI; Denies abdominal pain, bloating, constipation, nausea or vomiting : Reports as per HPI and other; Denies difficulty voiding, dysuria, hematuria, hot flashes, nipple discharge, pelvic pain, prolapsesymptoms, urinary frequency, urinary incontinence, urinary urgency, vaginal discharge, vaginal dryness, vaginal odor or vaginal pruritus Skin Skin/Breast: Denies changing lesions, breast mass, breast pain, breast skin changes or nipple discharge Psych Psych: Denies anxiety, change in libido, depression or difficulty concentrating Exam Const General: cooperative, healthy appearing, comfortable, no acute distress, well developed and well groomed HENCO Head: normal to inspection and normocephalic Ears: hearing grossly normal bilaterally and external ears normal Nose: external nose normal Face and sinus: normal facial exam Neck Neck: normal visual inspection, full ROM and no lymphadenopathy Thyroid: thyroid normal Chest Chest palpation & inspection: normal inspection of the chest Breast inspection: normal inspection of the breasts and normal inspection of theaxillae Breast palpation: normal palpation of the breasts, normal palpation of the axillae and no axillary lymphadenopathy Resp Effort & Inspection: normal respiratory effort GI Inspection: normal to inspection and non-distended Palpation: soft, no hepatosplenomegaly and no guarding General: bladder normal to palpation External Female Exam: normal external appearance, normal appearance of the urethra and no lesions Urethra: normal appearance of the urethra and normal palpation Speculum Exam - Vagina: normal appearance of the vagina and normal vaginal discharge Speculum Exam - Cervix: normal appearance of the cervix, no cervical discharge, no lesions and nontender Bimanual Exam- Vagina & Uterus: normal bimanual exam, uterine size normal, bladder normal to palpation, No tender, uterine mobility normal, consistency normal, non-tender and no cervical motion tenderness Bimanual Exam- Adnexa, other: normal adnexae, no masses and non-tender Skin General: no rashes or lesions noted Neuro General: patient alert, moves all extremities and no focal motor deficits Extrem General: normal to inspection and no pedal edema Psych Appearance: grossly normal Mental Status: mental status grossly normal Affect: normal affect Speech and Movement: speech and movement normal Attitude: cooperative Coding Level of Care Code Off vis,est,prev 40-64yrs Diagnoses Encounter for routine gynecological examination Z01.419 Assessment and Plan Assessment and Plan (1) Encounter for routine gynecological examination: Plan: Cervical cancer screening: pap up to date Breast cancer screening: mammogram ordered other health maintenance examination reviewed and orders placed if needed. Encouraged maintenance of a healthy weight and active lifestyle and handout given. Annual exam handout including recommendations for good health guidelines, Calcium/vitamin D recommendations, and basic screening information given. Problem list up to date, see problem list details for any additional plan information. Follow up in one year for annual health maintenance exam or sooner if needed. 03/05/25 1143 e Velde DO> Date _ Samaria Bandaignsindy Signature: Date (if applicable) CC: ~ [facility]03-07-2025 NoteLachicho morris is 2-1/2 months status post ORIF left radius, doing well. PHYSICAL EXAMINATION Wound is healed. No signs of infection. No DVT signs or symptoms. 85 degrees, pronation, supination, 70 degrees of wrist extension and flexion. Full range of motion of the hand. IMAGING X-rays show no change in the hardware. Fracture is healed. IMPRESSION Two and a half months open reduction and internal fixation left radius. PLAN She will do activities as tolerated. I will see her on a p.r.n. basis. AUTHENTICATED BY ANALISA AGUAYO, ON 11/24/2024 11:22:45[facility] [id number] History of Present illness Narrative* Rikki Chavez, PT - 11/22/2024 8:30 AM EST Images from the original note were not included. [facility] OUTPATIENT REHABILITATION DAILY TREATMENT NOTE Today's Date 11/22/2024 Patient Name: Galina Serra Date of : 1970 Current Visit #: 16 Authorized Visits: 13 Case Name: S/P ORIF of Left Distal Radius History: Pre-Treatment Pain Scale: 2 Symptoms: gradually improved Functional Diagnosis: 1. Closed fracture of left wrist with routine healing, subsequent encounter Clinical Information: Subjective: Pt reports mild pain this morning. The wrist does not feel as stiff this morning but she has already done some stretching this morning. Objective Wrist/Hand Right Wrist/Hand Hand Department Director Quality Control Coordinator Average: 51.67 #1: 58 #2: 45 #3: 52 Left Wrist/Hand Range of Motion: Wrist Flexion: Active: 50 Passive: 62 Wrist Extension: Active: 50 Passive: 65 Radial Deviation: Active: 22 Passive: 26 Ulnar Deviation Active: 32 Passive: 34 Supination Active: 90 Pronation Active: 90 Muscle Strength: WFL Hand Department Director Quality Control Coordinator Average: 27.33 #1: 27 #2: 25 #3: 30 Treatments: Physical Therapy Exercise Log - 11/22/24 0832 OTHER Precautions/Contraindications Supervising PT: Adrien - Left Wrist ORIF 09/11 Notes Visit 15: 8:32 - 9:15 [employer] Therapeutic Exercise (94922) Intervention prayer stretch and table stretch for wrist extension 3x20 Parameters flexion stretch w/ distraction over arm rest 3x20 Intervention supination stretch 3x20 Parameters GTB resisted flex/ext x15 each Intervention small velcro roll on small strip finger flex/ext roll x5 each - NT Parameters 3# dumbbell lift and move w/ finger tips side to side x15 / lifting to crown 3# x15 Intervention finger web kneading (green) x10 / finger spreading in web (yellow) x15 Parameters supination/pronation w/ velcro hammer w/ 2# dumbbell x10 / radial/ulnar deviation w/ velcro hammer w/ 2# dumbbell x10 each Intervention crate lift from knee height to/from waist height - 10# x10 Parameters yellow flex bar wringing x 1 min / supination x10 Intervention finger web flex/ext x10 each - NT Parameters digi-flex red x1 min - NT Intervention pincher office 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 w/ index and middle fingers / rose office 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 green clip x 15 each - NT Parameters Access Code: [email or web address] URL: [email or web address] Date: 10/02/2024 Prepared by: Rikki Chavez Exercises - Standing Wrist Flexion Stretch - 2-3 x daily - 3 reps - 20 seconds hold - Standing Wrist Extension Stretch - 2-3 x daily - 3 reps - 20 seconds hold - Seated Wrist Supination Stretch - 2-3 x daily - 10 reps - 20 seconds hold - Wrist Flexion and Extension AROM - 2 x daily - 10 reps - Seated Wrist Radial Ulnar Deviation AROM - 2 x daily - 10 reps - Finger Spreading - 2 x daily -10 reps - Thumb Opposition - 2 x daily - 5 reps - 3 seconds hold - Wrist Tendon Gliding - 2 x daily- 5 reps - 3 seconds hold Manual Therapy ([id number]) Intervention carpal joint mobs and PROM x10 mins PT Treatment Times Therex Total Time 43 8:32 - 9:15 Direct Treatment Time 43 Total Treatment Time 43 Goals: Physical Therapy Ortho Goals: CARRYING/MOVING/HANDLING: Patient will be able to lift and carry for ADL's, IADL's and work withoutdifficulty in 8 weeks SELF CARE: Patient will be able to complete ADL's including bathing, dressing, and hair care without difficulty in 3 weeks. IMPAIRMENT: Improve pain from 5/10 to <2/10 during lifting/carrying, gripping and repetitious UEtasks in 8 weeks IMPAIRMENT: Improve gross MMT of the Left Wrist to at least 4+/5 in 8 weeks IMPAIRMENT: Improve AROM of Left Wrist Flexion and Extension to at least 60 degrees in 8 weeks. IMPAIRMENT: Improve AROM of Left Forearm supination from 8 degrees to at least 70 degrees in 8 weeks. OTHER: Patient will increase FOTO score from 50 to at least 70 to show MDC/MCII and expected functional outcome in 8 weeks. OTHER: Patient will be able to properly demonstrate independence with HEP in 2 weeks. Patient Education: Quality of movement, Verbal HEP, and Diagnosis and recovery specific education with patient verbalized understanding. Post-Treatment Pain Scale: 1 Assessment: Patient had an expected response to treatment. Skilled Intervention demonstrated by modifications of treatment per exercise log including assessment of patient's response and safety interventions per exercise log. Progress towards goals as expected. Plan for Next Visit: Treatment Visit with focus on strengthening Rikki Chavez, PT State License, [id number] documented in this [id number] History of Present illness Narrative* Rikki Chavez, PT - 11/20/2024 3:15 PM EST Images from the original note were not included. [facility] OUTPATIENT REHABILITATION DAILY TREATMENT NOTE Today's Date 11/20/2024 Patient Name: Galina Serra Date of : 1970 Current Visit #: 15 Authorized Visits: 13 Case Name: S/P ORIF of Left Distal Radius History: Pre-Treatment Pain Scale: 2 Symptoms: gradually improved Functional Diagnosis: 1. Closed fracture of left wrist with routine healing, subsequent encounter Clinical Information: Subjective: Pt reports mild pain and minimal swelling this date. She did slip and fall 2 days ago. She reports landing on the left hand a little but kind of stopped herself and fell more to the side.She did not have any increase in pain or swelling following the fall. Objective Treatments: Physical Therapy Exercise Log - 11/20/24 1521 OTHER Precautions/Contraindications Supervising PT: Adrien - Left Wrist ORIF 09/11 Notes Visit 14: 3:20 - 4:02 [employer] Therapeutic Exercise (70496) Intervention prayer stretch and table stretch for wrist extension 3x20 Parameters flexion stretch w/ distraction over arm rest 3x20 Intervention supination stretch 3x20 Parameters GTB resisted flex/ext x15 each Intervention small velcro roll on small strip finger flex/ext roll x5 each - NT Parameters 3# dumbbell lift and move w/ finger tips side to side x15 / lifting to crown 3# x15 Intervention finger web kneading (green) x10 / finger spreading in web (yellow) x15 Parameters supination/pronation w/ velcro hammer w/ 1# dumbbell x10 / radial/ulnar deviation w/ velcro hammer w/ 1.5# dumbbell x10 each Intervention crate lift from knee height to/from waist height - 10# x10 Parameters yellow flex bar wringing x 1 min / supination x10 Intervention finger web flex/ext x10 each - NT Parameters digi-flex red x1 min - NT Intervention pincher office 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 w/ index and middle fingers / rose office 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 green clip x 15 each - NT Parameters Access Code: [email or web address] URL: [email or web address] Date: 10/02/2024 Prepared by: Rikki Chavez Exercises - Standing Wrist Flexion Stretch - 2-3 x daily - 3 reps - 20 seconds hold - Standing Wrist Extension Stretch - 2-3 x daily - 3 reps - 20 seconds hold - Seated Wrist Supination Stretch - 2-3 x daily - 10 reps - 20 seconds hold - Wrist Flexion and Extension AROM - 2 x daily - 10 reps - Seated Wrist Radial Ulnar Deviation AROM - 2 x daily - 10 reps - Finger Spreading - 2 x daily -10 reps - Thumb Opposition - 2 x daily - 5 reps - 3 seconds hold - Wrist Tendon Gliding - 2 x daily- 5 reps - 3 seconds hold Manual Therapy ([id number]) Intervention carpal joint mobs and PROM x10 mins PT Treatment Times Therex Total Time 32 3:20 - 3:52 Manual Therapy Total Time 10 3:52 - 4:02 Direct Treatment Time 42 Total Treatment Time 42 Goals: Physical Therapy Ortho Goals: CARRYING/MOVING/HANDLING: Patient will be able to lift and carry for ADL's, IADL's and work withoutdifficulty in 8 weeks SELF CARE: Patient will be able to complete ADL's including bathing, dressing, and hair care without difficulty in 3 weeks. IMPAIRMENT: Improve pain from 5/10 to <2/10 during lifting/carrying, gripping and repetitious UEtasks in 8 weeks IMPAIRMENT: Improve gross MMT of the Left Wrist to at least 4+/5 in 8 weeks IMPAIRMENT: Improve AROM of Left Wrist Flexion and Extension to at least 60 degrees in 8 weeks. IMPAIRMENT: Improve AROM of Left Forearm supination from 8 degrees to at least 70 degrees in 8 weeks. OTHER: Patient will increase FOTO score from 50 to at least 70 to show MDC/MCII and expected functional outcome in 8 weeks. OTHER: Patient will be able to properly demonstrate independence with HEP in 2 weeks. Patient Education: HEP Adherence and Diagnosis and recovery specific education with patient verbalized understanding. Post-Treatment Pain Scale: 1 Assessment: Patient had an expected response to treatment. Skilled Intervention demonstrated by modifications of treatment per exercise log including increased intensity and increased volume and safety interventions per exercise log. Progress towards goals as expected. Plan for Next Visit: Treatment Visit with focus on AROM and strengthening Rikki Chavez PT State License, [id number] documented in this [id number] History of Present illness Narrative* Rikki Chavez, PT - 11/15/2024 8:30 AM EST Images from the original note were not included. [facility] OUTPATIENT REHABILITATION DAILY TREATMENT NOTE Today's Date 11/15/2024 Patient Name: Galina Serra Date of : 1970 Current Visit #: 14 Authorized Visits: 13 Case Name: S/P ORIF of Left Distal Radius History: Pre-Treatment Pain Scale: 2 Symptoms: gradually improved Functional Diagnosis: 1. Closed fracture of left wrist with routine healing, subsequent encounter Clinical Information: Subjective: Pt reports mild pain upon arrival. She states she is feeling much better compared to earlier this week. Objective Treatments: Physical Therapy Exercise Log - 11/15/24 0838 OTHER Precautions/Contraindications Supervising PT: Adrien - Left Wrist ORIF 09/11 Notes Visit 13: 8:35 - 9:15 [employer] Therapeutic Exercise (74011) Intervention prayer stretch and table stretch for wrist extension 3x20 Parameters flexion stretch w/ distraction over arm rest 3x20 Intervention supination stretch 3x20 Parameters GTB resisted flex/ext x15 each Intervention small velcro roll on small strip finger flex/ext roll x5 each - NT Parameters 3# dumbbell lift and move w/ finger tips side to side x15 / lifting to crown 3# x15 Intervention finger web kneading (green) x10 / finger spreading in web (yellow) x15 Parameters supination/pronation w/ velcro hammer w/ 1# dumbbell x10 / radial/ulnar deviation w/ velcro hammer w/ 1.5# dumbbell x10 each Parameters yellow flex bar wringing x 1 min / supination x10 Intervention finger web flex/ext x10 each - NT Parameters digi-flex red x1 min Intervention pincher office 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 w/ index and middle fingers / rose office 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 green clip x 15 each Parameters Access Code: [email or web address] URL: [email or web address] Date: 10/02/2024 Prepared by: Rikki Chavez Exercises - Standing Wrist Flexion Stretch - 2-3 x daily - 3 reps - 20 seconds hold - Standing Wrist Extension Stretch - 2-3 x daily - 3 reps - 20 seconds hold - Seated Wrist Supination Stretch - 2-3 x daily - 10 reps - 20 seconds hold - Wrist Flexion and Extension AROM - 2 x daily - 10 reps - Seated Wrist Radial Ulnar Deviation AROM - 2 x daily - 10 reps - Finger Spreading - 2 x daily -10 reps - Thumb Opposition - 2 x daily - 5 reps - 3 seconds hold - Wrist Tendon Gliding - 2 x daily- 5 reps - 3 seconds hold Manual Therapy ([id number]) Intervention carpal joint mobs and PROM x10 mins PT Treatment Times Therex Total Time 30 8:35 - 9:05 Manual Therapy Total Time 10 9:05 - 9:15 Direct Treatment Time 40 Total Treatment Time 40 Goals: Physical Therapy Ortho Goals: CARRYING/MOVING/HANDLING: Patient will be able to lift and carry for ADL's, IADL's and work withoutdifficulty in 8 weeks SELF CARE: Patient will be able to complete ADL's including bathing, dressing, and hair care without difficulty in 3 weeks. IMPAIRMENT: Improve pain from 5/10 to <2/10 during lifting/carrying, gripping and repetitious UEtasks in 8 weeks IMPAIRMENT: Improve gross MMT of the Left Wrist to at least 4+/5 in 8 weeks IMPAIRMENT: Improve AROM of Left Wrist Flexion and Extension to at least 60 degrees in 8 weeks. IMPAIRMENT: Improve AROM of Left Forearm supination from 8 degrees to at least 70 degrees in 8 weeks. OTHER: Patient will increase FOTO score from 50 to at least 70 to show MDC/MCII and expected functional outcome in 8 weeks. OTHER: Patient will be able to properly demonstrate independence with HEP in 2 weeks. Patient Education: Verbal HEP and Diagnosis and recovery specific education with patient verbalizedunderstanding. Post-Treatment Pain Scale: 2 Assessment: Patient had an expected response to treatment. Skilled Intervention demonstrated by modifications of treatment per exercise log including increased intensity and increased volume and safety interventions per exercise log. Progress towards goals as expected. Plan for Next Visit: Treatment Visit with focus on AROM and strength progressions Rikki Chavez PT State License, [id number] documented in this [id number] History of Present illness Narrative* Rikki Chavez, PT - 11/13/2024 7:45 AM EST Images from the original note were not included. [facility] OUTPATIENT REHABILITATION DAILY TREATMENT NOTE Today's Date 11/13/2024 Patient Name: Galina Serra Date of : 1970 Current Visit #: 13 Authorized Visits: 13 Case Name: S/P ORIF of Left Distal Radius History: Pre-Treatment Pain Scale: 5 Symptoms: fluctuating Functional Diagnosis: 1. Closed fracture of left wrist with routine healing, subsequent encounter Clinical Information: Subjective: Pt reports increased pain this morning for unknown reason. She reports feeling really good yesterday and even had less pain in the evening. She wonders if she had it in an awkward position sleeping. Objective Treatments: Physical Therapy Exercise Log - 11/13/24 0750 OTHER Precautions/Contraindications Supervising PT: Adrien - Left Wrist ORIF 09/11 Notes Visit 12: 7:50 - 8:32 [employer] Therapeutic Exercise (02301) Intervention prayer stretch and table stretch for wrist extension 3x20 Parameters flexion stretch w/ distraction over arm rest 3x20 Intervention supination stretch 3x20 Parameters GTB resisted flex/ext x15 each Intervention small velcro roll on small strip finger flex/ext roll x5 each - NT Intervention opposition w/ finger web (green) x5 / finger spreading in web (yellow) x15 Parameters supination/pronation w/ velcro hammer w/ 1# dumbbell x10 / radial/ulnar deviation w/ velcro hammer w/ 1.5# dumbbell x10 each Parameters yellow flex bar wringing x 1 min / supination x10 Intervention finger web flex/ext x10 each - NT Parameters digi-flex red x1 min Intervention pincher office 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 w/ index and middle fingers / rose office 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 green clip x 15 each Parameters Access Code: [email or web address] URL: [email or web address] Date: 10/02/2024 Prepared by: Rikki Chavez Exercises - Standing Wrist Flexion Stretch - 2-3 x daily - 3 reps - 20 seconds hold - Standing Wrist Extension Stretch - 2-3 x daily - 3 reps - 20 seconds hold - Seated Wrist Supination Stretch - 2-3 x daily - 10 reps - 20 seconds hold - Wrist Flexion and Extension AROM - 2 x daily - 10 reps - Seated Wrist Radial Ulnar Deviation AROM - 2 x daily - 10 reps - Finger Spreading - 2 x daily -10 reps - Thumb Opposition - 2 x daily - 5 reps - 3 seconds hold - Wrist Tendon Gliding - 2 x daily- 5 reps - 3 seconds hold Manual Therapy ([id number]) Intervention carpal joint mobs and PROM x10 mins PT Treatment Times Therex Total Time 32 7:50 - 8:22 Manual Therapy Total Time 10 8:22 - 8:32 Direct Treatment Time 42 Total Treatment Time 42 Goals: Physical Therapy Ortho Goals: CARRYING/MOVING/HANDLING: Patient will be able to lift and carry for ADL's, IADL's and work withoutdifficulty in 8 weeks SELF CARE: Patient will be able to complete ADL's including bathing, dressing, and hair care without difficulty in 3 weeks. IMPAIRMENT: Improve pain from 5/10 to <2/10 during lifting/carrying, gripping and repetitious UEtasks in 8 weeks IMPAIRMENT: Improve gross MMT of the Left Wrist to at least 4+/5 in 8 weeks IMPAIRMENT: Improve AROM of Left Wrist Flexion and Extension to at least 60 degrees in 8 weeks. IMPAIRMENT: Improve AROM of Left Forearm supination from 8 degrees to at least 70 degrees in 8 weeks. OTHER: Patient will increase FOTO score from 50 to at least 70 to show MDC/MCII and expected functional outcome in 8 weeks. OTHER: Patient will be able to properly demonstrate independence with HEP in 2 weeks. Patient Education: Quality of movement and HEP Adherence with patient verbalized understanding. Post-Treatment Pain Scale: 3 Assessment: Patient had an expected response to treatment. Skilled Intervention demonstrated by modifications of treatment per exercise log including increased intensity and safety interventions per exercise log. Progress towards goals as expected. Plan for Next Visit: Treatment Visit with focus on extension ROM Rikki Chavez PT State License, [id number] documented in this [id number] History of Present illness Narrative* Rikki Chavez PT - 11/08/2024 8:30 AM EST Images from the original note were not included. [facility] OUTPATIENT REHABILITATION DAILY TREATMENT NOTE Today's Date 11/08/2024 Patient Name: Galina Serra Date of : 1970 Current Visit #: 12 Authorized Visits: 13 Case Name: S/P ORIF of Left Distal Radius History: Pre-Treatment Pain Scale: 2 Symptoms: gradually improved Functional Diagnosis: 1. Closed fracture of left wrist with routine healing, subsequent encounter Clinical Information: Subjective: Pt reports sx back to baseline today. Pain is minimal and swelling is down from earlierthis week. Objective Treatments: Physical Therapy Exercise Log - 11/08/24 0837 OTHER Precautions/Contraindications Supervising PT: Adrien - Left Wrist ORIF 09/11 Notes Visit 11: 8:35 - 9:18 [employer] Therapeutic Exercise ([id number]) Intervention prayer stretch and table stretch for wrist extension 3x20 Parameters flexion stretch w/ distraction over arm rest 3x20 Intervention supination stretch 3x20 Parameters GTB resisted flex/ext x15 each Intervention small velcro roll on small strip finger flex/ext roll x5 each Intervention opposition w/ finger web (green) x5 / finger spreading in web (yellow) x15 Parameters supination/pronation w/ velcro hammer w/ 1# dumbbell x10 / radial/ulnar deviation w/ velcro hammer w/ 1.5# dumbbell x10 each Parameters yellow flex bar wringing x 1 min / supination x10 Intervention finger web flex/ext x10 each - NT Parameters digi-flex red x1 min Intervention pincher office 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 red clip x 1 min Parameters Access Code: [email or web address] URL: [email or web address] Date: 10/02/2024 Prepared by: Rikki Chavez Exercises - Standing Wrist Flexion Stretch - 2-3 x daily - 3 reps - 20 seconds hold - Standing Wrist Extension Stretch - 2-3 x daily - 3 reps - 20 seconds hold - Seated Wrist Supination Stretch - 2-3 x daily - 10 reps - 20 seconds hold - Wrist Flexion and Extension AROM - 2 x daily - 10 reps - Seated Wrist Radial Ulnar Deviation AROM - 2 x daily - 10 reps - Finger Spreading - 2 x daily -10 reps - Thumb Opposition - 2 x daily - 5 reps - 3 seconds hold - Wrist Tendon Gliding - 2 x daily- 5 reps - 3 seconds hold Manual Therapy ([id number]) Intervention carpal joint mobs and PROM x10 mins PT Treatment Times Therex Total Time 43 8:35 - 9:18 Direct Treatment Time 43 Total Treatment Time 43 Goals: Physical Therapy Ortho Goals: CARRYING/MOVING/HANDLING: Patient will be able to lift and carry for ADL's, IADL's and work withoutdifficulty in 8 weeks SELF CARE: Patient will be able to complete ADL's including bathing, dressing, and hair care without difficulty in 3 weeks. IMPAIRMENT: Improve pain from 5/10 to <2/10 during lifting/carrying, gripping and repetitious UEtasks in 8 weeks IMPAIRMENT: Improve gross MMT of the Left Wrist to at least 4+/5 in 8 weeks IMPAIRMENT: Improve AROM of Left Wrist Flexion and Extension to at least 60 degrees in 8 weeks. IMPAIRMENT: Improve AROM of Left Forearm supination from 8 degrees to at least 70 degrees in 8 weeks. OTHER: Patient will increase FOTO score from 50 to at least 70 to show MDC/MCII and expected functional outcome in 8 weeks. OTHER: Patient will be able to properly demonstrate independence with HEP in 2 weeks. Patient Education: Quality of movement, Verbal HEP, and Diagnosis and recovery specific education with patient verbalized understanding. Post-Treatment Pain Scale: 3 Assessment: Patient had an expected response to treatment. Skilled Intervention demonstrated by modifications of treatment per exercise log including increased intensity and safety interventions per exercise log. Progress towards goals as expected. Plan for Next Visit: Treatment Visit with focus on AROM Rikki Chavez PT State License, [id number] documented in this [id number] History of Present illness Narrative* Rikki Chavez PT - 11/06/2024 8:30 AM EST Images from the original note were not included. [facility] DAILY TREATMENT NOTE Today's Date 11/06/2024 Patient Name: Galina Serra Date of : 1970 Current Visit #: 11 Authorized Visits: 13 Case Name: S/P ORIF of Left Distal Radius History: Pre-Treatment Pain Scale: 2 Symptoms: gradually improved Functional Diagnosis: 1. Closed fracture of left wrist with routine healing, subsequent encounter Clinical Information: Subjective: Pt continues to report mild pain but has been having increased tightness/stiffness the past couple days. Objective Treatments: Physical Therapy Exercise Log - 11/06/24 0832 OTHER Precautions/Contraindications Supervising PT: Adrien - Left Wrist ORIF 09/11 Notes Visit 10: 8:31 - 9:17 [employer] Therapeutic Exercise (36073) Intervention prayer stretch and table stretch for wrist extension 3x20 Parameters flexion stretch w/ distraction over arm rest 3x20 Intervention supination stretch 3x20 Parameters GTB resisted flex/ext x15 each Intervention small velcro roll on small strip finger flex/ext roll x5 each Intervention opposition w/ finger web (green) x5 / finger spreading in web (yellow) x15 Parameters supination/pronation w/ velcro hammer w/ 1# dumbbell x10 / radial/ulnar deviation w/ velcro hammer w/ 1.5# dumbbell x10 each Parameters yellow flex bar wringing x 1 min / supination x10 Intervention finger web flex/ext x10 each - NT Parameters digi-flex red x1 min Intervention pincher office 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 red clip x 1 min Parameters Access Code: [email or web address] URL: [email or web address] Date: 10/02/2024 Prepared by: Rikki Chavez Exercises - Standing Wrist Flexion Stretch - 2-3 x daily - 3 reps - 20 seconds hold - Standing Wrist Extension Stretch - 2-3 x daily - 3 reps - 20 seconds hold - Seated Wrist Supination Stretch - 2-3 x daily - 10 reps - 20 seconds hold - Wrist Flexion and Extension AROM - 2 x daily - 10 reps - Seated Wrist Radial Ulnar Deviation AROM - 2 x daily - 10 reps - Finger Spreading - 2 x daily -10 reps - Thumb Opposition - 2 x daily - 5 reps - 3 seconds hold - Wrist Tendon Gliding - 2 x daily- 5 reps - 3 seconds hold Manual Therapy ([id number]) Intervention carpal joint mobs and PROM x10 mins PT Treatment Times Therex Total Time 36 8:31 - 9:07 Manual Therapy Total Time 10 9:07 - 9:17 Direct Treatment Time 46 Total Treatment Time 46 Goals: Physical Therapy Ortho Goals: CARRYING/MOVING/HANDLING: Patient will be able to lift and carry for ADL's, IADL's and work withoutdifficulty in 8 weeks SELF CARE: Patient will be able to complete ADL's including bathing, dressing, and hair care without difficulty in 3 weeks. IMPAIRMENT: Improve pain from 5/10 to <2/10 during lifting/carrying, gripping and repetitious UEtasks in 8 weeks IMPAIRMENT: Improve gross MMT of the Left Wrist to at least 4+/5 in 8 weeks IMPAIRMENT: Improve AROM of Left Wrist Flexion and Extension to at least 60 degrees in 8 weeks. IMPAIRMENT: Improve AROM of Left Forearm supination from 8 degrees to at least 70 degrees in 8 weeks. OTHER: Patient will increase FOTO score from 50 to at least 70 to show MDC/MCII and expected functional outcome in 8 weeks. OTHER: Patient will be able to properly demonstrate independence with HEP in 2 weeks. Patient Education: HEP Adherence and Diagnosis and recovery specific education with patient verbalized understanding. Post-Treatment Pain Scale: 3 Assessment: Patient had an expected response to treatment. Skilled Intervention demonstrated by modifications of treatment per exercise log including increased intensity and safety interventions per exercise log. Progress towards goals as expected. Plan for Next Visit: Treatment Visit with focus on ROM Rikki Chavez PT State License, [id number] documented in this [id number] History of Present illness Narrative* Rikki Chavez PT - 11/01/2024 7:45 AM EST Images from the original note were not included. [facility] DAILY TREATMENT NOTE Today's Date 11/01/2024 Patient Name: Galina Serra Date of : 1970 Current Visit #: 10 Authorized Visits: 13 Case Name: S/P ORIF of Left Distal Radius History: Pre-Treatment Pain Scale: 3 Symptoms: gradually improved Functional Diagnosis: 1. Closed fracture of left wrist with routine healing, subsequent encounter Clinical Information: Subjective: Pt reports slightly increased swelling this morning and states she had increased pain following last session. Objective Treatments: Physical Therapy Exercise Log - 11/01/24 0742 OTHER Precautions/Contraindications Supervising PT: Adrien - Left Wrist ORIF 09/11 Notes Visit 9: 7:46 - 8:35 [employer] Therapeutic Exercise (00034) Intervention prayer stretch and table stretch for wrist extension 3x20 Parameters flexion stretch w/ distraction over arm rest 3x20 Intervention supination stretch 3x20 Parameters RTB resisted flex/ext x15 each Intervention small velcro roll on small strip finger flex/ext roll x5 each Intervention opposition w/ finger web (green) x5 / finger spreading in web (yellow) x15 Parameters supination/pronation w/ velcro hammer w/ 1# dumbbell x10 / radial/ulnar deviation w/ velcro hammer w/ 1# dumbbell x10 each Parameters yellow flex bar wringing x 1 min / supination x10 Intervention finger web flex/ext x10 each - NT Parameters digi-flex red x1 min Intervention pincher office 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 red clip x 1 min Parameters Access Code: [email or web address] URL: [email or web address] Date: 10/02/2024 Prepared by: Rikki Chavez Exercises - Standing Wrist Flexion Stretch - 2-3 x daily - 3 reps - 20 seconds hold - Standing Wrist Extension Stretch - 2-3 x daily - 3 reps - 20 seconds hold - Seated Wrist Supination Stretch - 2-3 x daily - 10 reps - 20 seconds hold - Wrist Flexion and Extension AROM - 2 x daily - 10 reps - Seated Wrist Radial Ulnar Deviation AROM - 2 x daily - 10 reps - Finger Spreading - 2 x daily -10 reps - Thumb Opposition - 2 x daily - 5 reps - 3 seconds hold - Wrist Tendon Gliding - 2 x daily- 5 reps - 3 seconds hold Manual Therapy ([id number]) Intervention carpal joint mobs and PROM x10 mins Parameters -- PT Treatment Times Therex Total Time 39 7:46 - 8:25 Manual Therapy Total Time 10 8:25 - 8:35 Direct Treatment Time 49 Total Treatment Time 49 Goals: Physical Therapy Ortho Goals: CARRYING/MOVING/HANDLING: Patient will be able to lift and carry for ADL's, IADL's and work withoutdifficulty in 8 weeks SELF CARE: Patient will be able to complete ADL's including bathing, dressing, and hair care without difficulty in 3 weeks. IMPAIRMENT: Improve pain from 5/10 to <2/10 during lifting/carrying, gripping and repetitious UEtasks in 8 weeks IMPAIRMENT: Improve gross MMT of the Left Wrist to at least 4+/5 in 8 weeks IMPAIRMENT: Improve AROM of Left Wrist Flexion and Extension to at least 60 degrees in 8 weeks. IMPAIRMENT: Improve AROM of Left Forearm supination from 8 degrees to at least 70 degrees in 8 weeks. OTHER: Patient will increase FOTO score from 50 to at least 70 to show MDC/MCII and expected functional outcome in 8 weeks. OTHER: Patient will be able to properly demonstrate independence with HEP in 2 weeks. Patient Education: HEP Adherence and Diagnosis and recovery specific education with patient verbalized understanding. Post-Treatment Pain Scale: 3 Assessment: Patient had an expected response to treatment. Skilled Intervention demonstrated by modifications of treatment per exercise log including assessment of patient's response and safety interventions per exercise log. Progress towards goals as expected. Plan for Next Visit: Treatment Visit with focus on ROM and strength Rikki Chavez PT State License, [id number] documented in this [id number] History of Present illness Narrative* Rikki Chavez, GISELA - 10/30/2024 8:30 AM EST Images from the original note were not included. [facility] DAILY TREATMENT NOTE Today's Date 10/30/2024 Patient Name: Galina Serra Date of : 1970 Current Visit #: 8 Authorized Visits: 13 Case Name: S/P ORIF of Left Distal Radius History: Pre-Treatment Pain Scale: 1 Symptoms: gradually improved Functional Diagnosis: 1. Closed fracture of left wrist with routine healing, subsequent encounter Clinical Information: Subjective: Pt continues to report minimal pain but has ongoing tightness/stiffness. She is starting to feel more stretching up the forearm with wrist stretches. All of her steri strips have fallen off. The incisions appears to be healing well with no obvious signs of infection at this time. Objective Treatments: Physical Therapy Exercise Log - 10/30/24 0835 OTHER Precautions/Contraindications Supervising PT: Adrien - Left Wrist ORIF 09/11 Notes Visit 8: 8:35 - 9:20 [employer] Therapeutic Exercise (84393) Intervention prayer stretch and table stretch for wrist extension 3x20 Parameters flexion stretch w/ distraction over arm rest 3x20 Intervention supination stretch 3x20 Parameters YTB 4-way resisted wrist x10 Intervention small velcro roll on small strip finger flex/ext roll x5 each Parameters -- Intervention opposition w/ finger web (green) x5 / finger spreading in web (yellow) x15 Parameters supination/pronation w/ velcro hammer w/ 1# dumbbell x10 / radial/ulnar deviation w/ velcro hammer w/ 1# dumbbell x10 each Intervention -- Parameters yellow flex bar wringing x 1 min / supination x10 Intervention finger web flex/ext x10 each - NT Parameters digi-flex red x1 min Intervention pincher office 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 red clip x 1 min Parameters Access Code: [email or web address] URL: [email or web address] Date: 10/02/2024 Prepared by: Rikki Chavez Exercises - Standing Wrist Flexion Stretch - 2-3 x daily - 3 reps - 20 seconds hold - Standing Wrist Extension Stretch - 2-3 x daily - 3 reps - 20 seconds hold - Seated Wrist Supination Stretch - 2-3 x daily - 10 reps - 20 seconds hold - Wrist Flexion and Extension AROM - 2 x daily - 10 reps - Seated Wrist Radial Ulnar Deviation AROM - 2 x daily - 10 reps - Finger Spreading - 2 x daily -10 reps - Thumb Opposition - 2 x daily - 5 reps - 3 seconds hold - Wrist Tendon Gliding - 2 x daily- 5 reps - 3 seconds hold Manual Therapy ([id number]) Intervention carpal joint mobs and PROM x10 mins Parameters STM to forearm with pushing fluid proximally 5 min - NT PT Treatment Times Therex Total Time 35 8:35 - 9:10 Manual Therapy Total Time 10 9:10 - 9:20 Direct Treatment Time 45 Total Treatment Time 45 Goals: Physical Therapy Ortho Goals: CARRYING/MOVING/HANDLING: Patient will be able to lift and carry for ADL's, IADL's and work withoutdifficulty in 8 weeks SELF CARE: Patient will be able to complete ADL's including bathing, dressing, and hair care without difficulty in 3 weeks. IMPAIRMENT: Improve pain from 5/10 to <2/10 during lifting/carrying, gripping and repetitious UEtasks in 8 weeks IMPAIRMENT: Improve gross MMT of the Left Wrist to at least 4+/5 in 8 weeks IMPAIRMENT: Improve AROM of Left Wrist Flexion and Extension to at least 60 degrees in 8 weeks. IMPAIRMENT: Improve AROM of Left Forearm supination from 8 degrees to at least 70 degrees in 8 weeks. OTHER: Patient will increase FOTO score from 50 to at least 70 to show MDC/MCII and expected functional outcome in 8 weeks. OTHER: Patient will be able to properly demonstrate independence with HEP in 2 weeks. Patient Education: HEP Adherence and Diagnosis and recovery specific education with patient verbalized understanding. Post-Treatment Pain Scale: 1 Assessment: Patient had an expected response to treatment. Skilled Intervention demonstrated by modifications of treatment per exercise log including increased intensity and assessment of patient's response and safety interventions per exercise log. Progress towards goals as expected. Plan for Next Visit: Treatment Visit with focus on ROM and strength progressions Rikki Chavez PT State License, [id number] documented in this [id number] NoteSUBJECTIVE At this point in time, the patient is now 6 weeks status post left distal radius ORIF. PHYSICAL EXAMINATION At this time, she has 80 degrees of pronation/supination, 70 degrees wrist flexion, extension, full range of motion of the hand. Neurologically intact left upper extremity. X-RAYS Two views of the left wrist show no change in the hardware. IMPRESSION Six weeks open reduction and internal fixation, left radius. PLAN She will continue her exercises and I will see her in 6 weeks for final visit. I did a narcotic review. Last medication was [place] on 09/18/2024. AUTHENTICATED BY ANALISA AGUAYO, ON 10/27/2024 10:15:30[facility] [id number] History of Present illness Narrative* Rikki Chavez PT - 10/25/2024 8:30 AM EST Images from the original note were not included. [facility] DAILY TREATMENT NOTE Today's Date 10/25/2024 Patient Name: Galina Serra Date of : 1970 Current Visit #: 8 Authorized Visits: 13 Case Name: S/P ORIF of Left Distal Radius History: Pre-Treatment Pain Scale: 2 Symptoms: gradually improved Functional Diagnosis: 1. Closed fracture of left wrist with routine healing, subsequent encounter Clinical Information: Subjective: Pt continues to report mild pain overall but is having a lot more stiffness in the wrist this date. Objective Treatments: Physical Therapy Exercise Log - 10/25/24 0836 OTHER Precautions/Contraindications Supervising PT: Adrien - Left Wrist ORIF 09/11 Notes Visit 7: 8:34 - 9:18 [employer] Therapeutic Exercise (28659) Intervention -- Parameters forearm and wrist flex/ext stretches 3x20 each Intervention supination stretch 3x20 Parameters YTB 4-way resisted wrist x10 Intervention small velcro roll on small strip finger flex/ext roll x5 each Parameters finger spreading w/ palm flat x10 Intervention opposition w/ finger web x5 Parameters supination/pronation w/ velcro hammer w/ 1# dumbbell x10 / radial/ulnar deviation w/ velcro hammer w/ 1# dumbbell x10 each Intervention modified median nerve glide x10 - NT Parameters yellow flex bar wringing x 1 min / supination x10 Intervention finger web flex/ext x10 each - NT Parameters digi-flex red x1 min Intervention pincher office 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 red clip x 1 min Parameters -- Parameters Access Code: [email or web address] URL: [email or web address] Date: 10/02/2024 Prepared by: Rikki Chavez Exercises - Standing Wrist Flexion Stretch - 2-3 x daily - 3 reps - 20 seconds hold - Standing Wrist Extension Stretch - 2-3 x daily - 3 reps - 20 seconds hold - Seated Wrist Supination Stretch - 2-3 x daily - 10 reps - 20 seconds hold - Wrist Flexion and Extension AROM - 2 x daily - 10 reps - Seated Wrist Radial Ulnar Deviation AROM - 2 x daily - 10 reps - Finger Spreading - 2 x daily -10 reps - Thumb Opposition - 2 x daily - 5 reps - 3 seconds hold - Wrist Tendon Gliding - 2 x daily- 5 reps - 3 seconds hold Manual Therapy ([id number]) Intervention carpal joint mobs and PROM x10 mins Parameters STM to forearm with pushing fluid proximally 5 min - NT PT Treatment Times Therex Total Time 44 8:34 - 9:18 Direct Treatment Time 44 Total Treatment Time 44 Goals: Physical Therapy Ortho Goals: CARRYING/MOVING/HANDLING: Patient will be able to lift and carry for ADL's, IADL's and work withoutdifficulty in 8 weeks SELF CARE: Patient will be able to complete ADL's including bathing, dressing, and hair care without difficulty in 3 weeks. IMPAIRMENT: Improve pain from 5/10 to <2/10 during lifting/carrying, gripping and repetitious UEtasks in 8 weeks IMPAIRMENT: Improve gross MMT of the Left Wrist to at least 4+/5 in 8 weeks IMPAIRMENT: Improve AROM of Left Wrist Flexion and Extension to at least 60 degrees in 8 weeks. IMPAIRMENT: Improve AROM of Left Forearm supination from 8 degrees to at least 70 degrees in 8 weeks. OTHER: Patient will increase FOTO score from 50 to at least 70 to show MDC/MCII and expected functional outcome in 8 weeks. OTHER: Patient will be able to properly demonstrate independence with HEP in 2 weeks. Patient Education: Verbal HEP and Diagnosis and recovery specific education with patient verbalizedunderstanding. Post-Treatment Pain Scale: 1 Assessment: Patient had an expected response to treatment. Skilled Intervention demonstrated by modifications of treatment per exercise log including assessment of patient's response and safety interventions per exercise log. Progress towards goals as expected. Plan for Next Visit: Treatment Visit with focus on ROM and strength progressions Rikki Chavez PT State License, [id number] documented in this [id number] History of Present illness Narrative* Rikki Chavez PT - 10/23/2024 4:45 PM EST Images from the original note were not included. [facility] DAILY TREATMENT NOTE Today's Date 10/23/2024 Patient Name: Galina Serra Date of : 1970 Current Visit #: 7 Authorized Visits: 13 Case Name: S/P ORIF of Left Distal Radius History: Pre-Treatment Pain Scale: 2 Symptoms: gradually improved Functional Diagnosis: 1. Closed fracture of left wrist with routine healing, subsequent encounter Clinical Information: Subjective: Pt reports mild pain upon arrival and ongoing compliance with HEP Objective Treatments: Physical Therapy Exercise Log - 10/23/24 1647 OTHER Precautions/Contraindications Supervising PT: Adrien - Left Wrist ORIF 09/11 Notes Visit 6: 4:48 - 5:28 [employer] Therapeutic Exercise (45695) Intervention heat prior to therex up to 5 mins NT Parameters forearm and wrist flex/ext stretches 3x20 each Intervention supination stretch 3x20 Parameters YTB 4-way resisted wrist x10 Intervention -- Parameters finger spreading w/ palm flat x10 Intervention opposition w/ finger web x5 / tendon glides 5x3 each Parameters -- Intervention modified median nerve glide x10 Parameters yellow flex bar wringing x 1 min / supination x10 Intervention finger web flex/ext x10 each Parameters digi-flex yellow x1 min Intervention pincher office 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 red clip x 1 min Parameters supination w/ 2# dumbbell x10 Parameters Access Code: [email or web address] URL: [email or web address] Date: 10/02/2024 Prepared by: Rikki Chavez Exercises - Standing Wrist Flexion Stretch - 2-3 x daily - 3 reps - 20 seconds hold - Standing Wrist Extension Stretch - 2-3 x daily - 3 reps - 20 seconds hold - Seated Wrist Supination Stretch - 2-3 x daily - 10 reps - 20 seconds hold - Wrist Flexion and Extension AROM - 2 x daily - 10 reps - Seated Wrist Radial Ulnar Deviation AROM - 2 x daily - 10 reps - Finger Spreading - 2 x daily -10 reps - Thumb Opposition - 2 x daily - 5 reps - 3 seconds hold - Wrist Tendon Gliding - 2 x daily- 5 reps - 3 seconds hold Manual Therapy ([id number]) Intervention carpal joint mobs and PROM x10 mins Parameters STM to forearm with pushing fluid proximally 5 min - NT PT Treatment Times Therex Total Time 30 4:48 - 5:18 Manual Therapy Total Time 10 5:18 - 5:28 Direct Treatment Time 40 Total Treatment Time 40 Goals: Physical Therapy Ortho Goals: CARRYING/MOVING/HANDLING: Patient will be able to lift and carry for ADL's, IADL's and work withoutdifficulty in 8 weeks SELF CARE: Patient will be able to complete ADL's including bathing, dressing, and hair care without difficulty in 3 weeks. IMPAIRMENT: Improve pain from 5/10 to <2/10 during lifting/carrying, gripping and repetitious UEtasks in 8 weeks IMPAIRMENT: Improve gross MMT of the Left Wrist to at least 4+/5 in 8 weeks IMPAIRMENT: Improve AROM of Left Wrist Flexion and Extension to at least 60 degrees in 8 weeks. IMPAIRMENT: Improve AROM of Left Forearm supination from 8 degrees to at least 70 degrees in 8 weeks. OTHER: Patient will increase FOTO score from 50 to at least 70 to show MDC/MCII and expected functional outcome in 8 weeks. OTHER: Patient will be able to properly demonstrate independence with HEP in 2 weeks. Patient Education: Quality of movement and Verbal HEP with patient verbalized understanding. Post-Treatment Pain Scale: 2 Assessment: Patient had an expected response to treatment. Skilled Intervention demonstrated by modifications of treatment per exercise log including increased intensity and assessment of patient's response and safety interventions per exercise log. Progress towards goals as expected. Plan for Next Visit: Treatment Visit with focus on ROM and strength progressions Rikki Chavez PT State License, [id number] documented in this [id number] History of Present illness Narrative* Ender Franklin PTA - 10/18/2024 8:30 AM EST Images from the original note were not included. [facility] DAILY TREATMENT NOTE Today's Date 10/18/2024 Patient Name: Galina Serra Date of : 1970 Current Visit #: 6 Authorized Visits: 13 Case Name: S/P ORIF of Left Distal Radius History: Pre-Treatment Pain Scale: 1 Symptoms: gradually improved Functional Diagnosis: 1. Closed fracture of left wrist with routine healing, subsequent encounter Clinical Information: Subjective: pt reports wrist stiffens up a lot and is compliant with HEP Objective Treatments: Physical Therapy Exercise Log - 10/18/24 0828 OTHER Precautions/Contraindications Supervising PT: Adrien - Left Wrist ORIF 09/11 Notes Visit 5: 8:32 - 9:16 [employer] Therapeutic Exercise ([id number]) Intervention heat prior to therex up to 5 mins NT Parameters forearm and wrist flex/ext stretches 3x20 each Intervention supination stretch 3x20 Parameters flex/ext AROM x 10 Intervention radial/ulnar deviation AROM x 10 Parameters finger spreading w/ palm flat x10 Intervention opposition w/ finger web x5 / tendon glides 5x3 each Parameters Hammer supination, Pronation - x10 1# Intervention modified median nerve glide x10 Parameters yellow flex bar wringing x 1 min Intervention finger web flex/ext x10 each Parameters digi-flex yellow x1 min Intervention pincher office 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 yellow clip x 1 min Parameters supination w/ 2# dumbbell x10 Parameters Access Code: [email or web address] URL: [email or web address] Date: 10/02/2024 Prepared by: Rikki Chavez Exercises - Standing Wrist Flexion Stretch - 2-3 x daily - 3 reps - 20 seconds hold - Standing Wrist Extension Stretch - 2-3 x daily - 3 reps - 20 seconds hold - Seated Wrist Supination Stretch - 2-3 x daily - 10 reps - 20 seconds hold - Wrist Flexion and Extension AROM - 2 x daily - 10 reps - Seated Wrist Radial Ulnar Deviation AROM - 2 x daily - 10 reps - Finger Spreading - 2 x daily -10 reps - Thumb Opposition - 2 x daily - 5 reps - 3 seconds hold - Wrist Tendon Gliding - 2 x daily- 5 reps - 3 seconds hold Manual Therapy ([id number]) Intervention carpal joint mobs and PROM x5 mins Parameters STM to forearm with pushing fluid proximally 5 min - NT PT Treatment Times Therex Total Time 44 8:32-9:16 Direct Treatment Time 44 Total Treatment Time 44 Goals: Physical Therapy Ortho Goals: CARRYING/MOVING/HANDLING: Patient will be able to lift and carry for ADL's, IADL's and work withoutdifficulty in 8 weeks SELF CARE: Patient will be able to complete ADL's including bathing, dressing, and hair care without difficulty in 3 weeks. IMPAIRMENT: Improve pain from 5/10 to <2/10 during lifting/carrying, gripping and repetitious UEtasks in 8 weeks IMPAIRMENT: Improve gross MMT of the Left Wrist to at least 4+/5 in 8 weeks IMPAIRMENT: Improve AROM of Left Wrist Flexion and Extension to at least 60 degrees in 8 weeks. IMPAIRMENT: Improve AROM of Left Forearm supination from 8 degrees to at least 70 degrees in 8 weeks. OTHER: Patient will increase FOTO score from 50 to at least 70 to show MDC/MCII and expected functional outcome in 8 weeks. OTHER: Patient will be able to properly demonstrate independence with HEP in 2 weeks. Patient Education: Quality of movement with patient demonstrated understanding. Post-Treatment Pain Scale: 1 Assessment: Patient had an expected response to treatment. Skilled Intervention demonstrated by modifications of treatment per exercise log including increased load and safety interventions per exercise log. Progress towards goals as expected. Plan for Next Visit: Treatment Visit with focus on ROM and stretching Ender Franklin PTA STATE LICENSE, [id number] documented in this [id number] History of Present illness Narrative* Rikki Chavez, PT - 10/16/2024 8:30 AM EST Images from the original note were not included. [facility] DAILY TREATMENT NOTE Today's Date 10/16/2024 Patient Name: Galina Serra Date of : 1970 Current Visit #: 5 Authorized Visits: 13 Case Name: S/P ORIF of Left Distal Radius History: Pre-Treatment Pain Scale: 1 Symptoms: gradually improved Functional Diagnosis: 1. Closed fracture of left wrist with routine healing, subsequent encounter Clinical Information: Subjective: Pt reports minimal pain upon arrival and her primary complaint is stiffness and swelling. She followed up with ortho d/t concerns with the incision opening. She now has the entire incision covered with steri strips and is on an antibiotic. Objective Treatments: Physical Therapy Exercise Log - 10/16/24 0832 OTHER Precautions/Contraindications Supervising PT: Adrien - Left Wrist ORIF 09/11 Notes Visit 4: 8:32 - 9:16 [employer] Therapeutic Exercise ([id number]) Intervention heat prior to therex up to 5 mins Parameters forearm and wrist flex/ext stretches 3x20 each Intervention supination stretch 3x20 Parameters flex/ext AROM x 10 Intervention radial/ulnar deviation AROM x 10 Parameters finger spreading w/ palm flat x10 Intervention opposition w/ finger web x5 / tendon glides 5x3 each Parameters yellow putty exercises x 5 mins - provided for HEP Intervention modified median nerve glide x10 Parameters yellow flex bar wringing x 1 min Intervention finger web flex/ext x10 each Parameters digi-flex yellow x1 min Intervention pincher office 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 yellow clip x 1 min Parameters supination w/ 2# dumbbell x10 Parameters Access Code: [email or web address] URL: [email or web address] Date: 10/02/2024 Prepared by: Rikki Chavez Exercises - Standing Wrist Flexion Stretch - 2-3 x daily - 3 reps - 20 seconds hold - Standing Wrist Extension Stretch - 2-3 x daily - 3 reps - 20 seconds hold - Seated Wrist Supination Stretch - 2-3 x daily - 10 reps - 20 seconds hold - Wrist Flexion and Extension AROM - 2 x daily - 10 reps - Seated Wrist Radial Ulnar Deviation AROM - 2 x daily - 10 reps - Finger Spreading - 2 x daily -10 reps - Thumb Opposition - 2 x daily - 5 reps - 3 seconds hold - Wrist Tendon Gliding - 2 x daily- 5 reps - 3 seconds hold Manual Therapy ([id number]) Intervention carpal joint mobs and PROM x12 mins Parameters STM to forearm with pushing fluid proximally 5 min - NT PT Treatment Times Therex Total Time 32 8:32 - 9:04 Manual Therapy Total Time 12 9:04 - 9:16 Direct Treatment Time 44 Total Treatment Time 44 Goals: Physical Therapy Ortho Goals: CARRYING/MOVING/HANDLING: Patient will be able to lift and carry for ADL's, IADL's and work withoutdifficulty in 8 weeks SELF CARE: Patient will be able to complete ADL's including bathing, dressing, and hair care without difficulty in 3 weeks. IMPAIRMENT: Improve pain from 5/10 to <2/10 during lifting/carrying, gripping and repetitious UEtasks in 8 weeks IMPAIRMENT: Improve gross MMT of the Left Wrist to at least 4+/5 in 8 weeks IMPAIRMENT: Improve AROM of Left Wrist Flexion and Extension to at least 60 degrees in 8 weeks. IMPAIRMENT: Improve AROM of Left Forearm supination from 8 degrees to at least 70 degrees in 8 weeks. OTHER: Patient will increase FOTO score from 50 to at least 70 to show MDC/MCII and expected functional outcome in 8 weeks. OTHER: Patient will be able to properly demonstrate independence with HEP in 2 weeks. Patient Education: Verbal HEP, Diagnosis and recovery specific education, and Pain Management with patient verbalized understanding. Post-Treatment Pain Scale: 2 Assessment: Patient had an expected response to treatment. Skilled Intervention demonstrated by modifications of treatment per exercise log including increased intensity and safety interventions per exercise log. Progress towards goals as expected. Plan for Next Visit: Treatment Visit with focus on ROM progressions Rikki Chavez, PT State License, [id number] documented in this [id number] Cheryl comes in today for 4-week followup of open reduction and internal fixation left wrist. The patient is doing physical therapy, making improvements, and wanted to have her wound checked out. PHYSICAL EXAMINATION Today, she is awake, alert and oriented x3. She has 80 degrees of pronation, supination, 60 degrees wrist flexion, extension. Wound has no drainage, no erythema. IMAGING No x-rays were obtained. IMPRESSION Four weeks open reduction and internal fixation left radius. PLAN We will do local wound care, physical therapy. I will see her in 2 weeks. I did proceed with a narcotic review. Last listed medication was [place] on 09/18/2024. AUTHENTICATED BY ANALISA AGUAYO, ON 10/15/2024 17:03:27[facility]01-23-2025 History of Present illness Narrative* Ashley Morales PTA - 10/11/2024 8:30 AM EST Images from the original note were not included. [facility] REH[facility] DAILY TREATMENT NOTE Today's Date 10/11/2024 Patient Name: Galina Serra Date of : 1970 Current Visit #: 4 Authorized Visits: 13 Case Name: S/P ORIF of Left Distal Radius History: Pre-Treatment Pain Scale: stiff Symptoms: stabilized Functional Diagnosis: 1. Closed fracture of left wrist with routine healing, subsequent encounter Clinical Information: Subjective: States she feels weak and blah today, did not get a good night sleep. Wrist is stiff but responded well to last session. Prayer stretch and modified median nerve glides have been beneficial to her at home. Steri strips starting to come off. Objective removed steri strips an reapplied to middle portion of incision where still some separation is present Treatments: Physical Therapy Exercise Log - 10/11/24 0826 OTHER Precautions/Contraindications Supervising PT: Adrien - Left Wrist ORIF 09/11 Notes Visit 3: [id number] [employer] Therapeutic Exercise ([id number]) Parameters forearm and wrist flex/ext stretches 3x20 each Intervention supination stretch 3x20 Parameters flex/ext AROM x 10 Intervention radial/ulnar deviation AROM x 10 Parameters finger spreading w/ palm flat x10 Intervention opposition / tendon glides 5x3 each Parameters yellow putty exercises x 5 mins - provided for HEP Intervention modified median nerve glide x10 Parameters yellow flex bar wringing x 1 min and sup/pro x 1 min Intervention finger web flex/ext x10 each Parameters digi-flex yellow x1 min Intervention 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 office 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 yellow clip x 1 min Parameters Access Code: [email or web address] URL: [email or web address] Date: 10/02/2024 Prepared by: Rikki Chavez Exercises - Standing Wrist Flexion Stretch - 2-3 x daily - 3 reps - 20 seconds hold - Standing Wrist Extension Stretch - 2-3 x daily - 3 reps - 20 seconds hold - Seated Wrist Supination Stretch - 2-3 x daily - 10 reps - 20 seconds hold - Wrist Flexion and Extension AROM - 2 x daily - 10 reps - Seated Wrist Radial Ulnar Deviation AROM - 2 x daily - 10 reps - Finger Spreading - 2 x daily -10 reps - Thumb Opposition - 2 x daily - 5 reps - 3 seconds hold - Wrist Tendon Gliding - 2 x daily- 5 reps - 3 seconds hold Manual Therapy (14011) Intervention carpal joint mobs and PROM x10 mins Parameters STM to forearm with pushing fluid proximally 5 min PT Treatment Times Therex Total Time 36 2960-3082 Manual Therapy Total Time 15 5970-0470 Direct Treatment Time 51 Total Treatment Time 51 Goals: Physical Therapy Ortho Goals: CARRYING/MOVING/HANDLING: Patient will be able to lift and carry for ADL's, IADL's and work withoutdifficulty in 8 weeks SELF CARE: Patient will be able to complete ADL's including bathing, dressing, and hair care without difficulty in 3 weeks. IMPAIRMENT: Improve pain from 5/10 to <2/10 during lifting/carrying, gripping and repetitious UEtasks in 8 weeks IMPAIRMENT: Improve gross MMT of the Left Wrist to at least 4+/5 in 8 weeks IMPAIRMENT: Improve AROM of Left Wrist Flexion and Extension to at least 60 degrees in 8 weeks. IMPAIRMENT: Improve AROM of Left Forearm supination from 8 degrees to at least 70 degrees in 8 weeks. OTHER: Patient will increase FOTO score from 50 to at least 70 to show MDC/MCII and expected functional outcome in 8 weeks. OTHER: Patient will be able to properly demonstrate independence with HEP in 2 weeks. Patient Education: Quality of movement, Verbal HEP, HEP Adherence, and Diagnosis and recovery specific education with patient demonstrated understanding and verbalized understanding. Post-Treatment Pain Scale: sore Assessment: Patient had an expected response to treatment. Good tolerance to more aggressive stretching however cautious of reopening incision. Skilled Intervention demonstrated by modifications of treatment per exercise log including increased load, increased rate, increased intensity, increased mobility, increased volume, and assessment ofpatient's response and safety interventions per exercise log. Progress towards goals as expected. Plan for Next Visit: Treatment Visit with focus on continue. Monitor incision site. Ashley Morales PTA State License, [id number] documented in this [id number] History of Present illness Narrative* Ashley Morales PTA - 10/09/2024 8:30 AM EST Images from the original note were not included. [facility] REH[facility] DAILY TREATMENT NOTE Today's Date 10/09/2024 Patient Name: Galina Serra Date of : 1970 Current Visit #: 3 Authorized Visits: 13 Case Name: S/P ORIF of Left Distal Radius History: Pre-Treatment Pain Scale: 0 Symptoms: stabilized Functional Diagnosis: 1. Closed fracture of left wrist with routine healing, subsequent encounter Clinical Information: Subjective: States stiff and swollen still. Steri strips are still intact. Was sore after last session. Objective added PREs to improve wrist and office 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 function Treatments: Physical Therapy Exercise Log - 10/09/24 0837 OTHER Precautions/Contraindications Supervising PT: Adrien - Left Wrist ORIF 09/11 Notes Visit 3: [id number] [employer] Therapeutic Exercise (34514) Parameters forearm and wrist flex/ext stretches 3x20 each Intervention supination stretch 3x20 Parameters flex/ext AROM x 10 Intervention radial/ulnar deviation AROM x 10 Parameters finger spreading w/ palm flat x10 Intervention opposition / tendon glides 5x3 each Parameters yellow putty exercises x 5 mins - provided for HEP Intervention modified median nerve glide x10 Parameters yellow flex bar wringing x 1 min and sup/pro x 1 min Intervention finger web flex/ext x10 each Parameters digi-flex yellow x1 min Intervention pincher office 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 yellow clip x 1 min Parameters Access Code: [email or web address] URL: [email or web address] Date: 10/02/2024 Prepared by: Rikki Chavez Exercises - Standing Wrist Flexion Stretch - 2-3 x daily - 3 reps - 20 seconds hold - Standing Wrist Extension Stretch - 2-3 x daily - 3 reps - 20 seconds hold - Seated Wrist Supination Stretch - 2-3 x daily - 10 reps - 20 seconds hold - Wrist Flexion and Extension AROM - 2 x daily - 10 reps - Seated Wrist Radial Ulnar Deviation AROM - 2 x daily - 10 reps - Finger Spreading - 2 x daily -10 reps - Thumb Opposition - 2 x daily - 5 reps - 3 seconds hold - Wrist Tendon Gliding - 2 x daily- 5 reps - 3 seconds hold Manual Therapy (16406) Intervention carpal joint mobs and PROM x10 mins PT Treatment Times Therex Total Time 32 9102-8112 Manual Therapy Total Time 10 8414-6837 Direct Treatment Time 42 Total Treatment Time 42 Goals: Physical Therapy Ortho Goals: CARRYING/MOVING/HANDLING: Patient will be able to lift and carry for ADL's, IADL's and work withoutdifficulty in 8 weeks SELF CARE: Patient will be able to complete ADL's including bathing, dressing, and hair care without difficulty in 3 weeks. IMPAIRMENT: Improve pain from 5/10 to <2/10 during lifting/carrying, gripping and repetitious UEtasks in 8 weeks IMPAIRMENT: Improve gross MMT of the Left Wrist to at least 4+/5 in 8 weeks IMPAIRMENT: Improve AROM of Left Wrist Flexion and Extension to at least 60 degrees in 8 weeks. IMPAIRMENT: Improve AROM of Left Forearm supination from 8 degrees to at least 70 degrees in 8 weeks. OTHER: Patient will increase FOTO score from 50 to at least 70 to show MDC/MCII and expected functional outcome in 8 weeks. OTHER: Patient will be able to properly demonstrate independence with HEP in 2 weeks. Patient Education: Quality of movement, Verbal HEP, HEP Adherence, and Diagnosis and recovery specific education with patient demonstrated understanding and verbalized understanding. Post-Treatment Pain Scale: not as stiff Assessment: Patient had an expected response to treatment. Significant forearm and office 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 strength weakness present. Achieved good stretch with modified median nerve glides. Skilled Intervention demonstrated by modifications of treatment per exercise log including increased load, increased rate, increased intensity, increased volume, and assessment of patient's response and safety interventions per exercise log. Progress towards goals as expected. Plan for Next Visit: Treatment Visit with focus on continue Ashley Morales PTA State License, [id number] documented in this [id number] History of Present illness Narrative* Rikki Chavez, PT - 10/04/2024 4:00 PM EST Images from the original note were not included. [facility] REH[facility] DAILY TREATMENT NOTE Today's Date 10/04/2024 Patient Name: Galina Serra Date of : 1970 Current Visit #: 2 Authorized Visits: 13 Case Name: S/P ORIF of Left Distal Radius History: Pre-Treatment Pain Scale: 3 Symptoms: gradually improved Functional Diagnosis: 1. Closed fracture of left wrist with routine healing, subsequent encounter Clinical Information: Subjective: Pt reports baseline pain upon arrival but states the wrist seems more swollen and stifflately. She reports no issues with her HEP. The steri strips remain in place and the incision remains intact. Objective Treatments: Physical Therapy Exercise Log - 10/04/24 1606 OTHER Precautions/Contraindications Supervising PT: Adrien - Left Wrist ORIF 09/11 Notes Visit 1: 4:05 - 4:43 [employer] Therapeutic Exercise (34153) Parameters forearm and wrist flex/ext stretches 3x20 each Intervention supination stretch 3x20 Parameters flex/ext AROM x 10 Intervention radial/ulnar deviation AROM x 10 Parameters finger spreading w/ palm flat x10 Intervention opposition / tendon glides 5x3 each Parameters yellow putty exercises x 5 mins - provided for HEP Parameters Access Code: [email or web address] URL: [email or web address] Date: 10/02/2024 Prepared by: Rikki Chavez Exercises - Standing Wrist Flexion Stretch - 2-3 x daily - 3 reps - 20 seconds hold - Standing Wrist Extension Stretch - 2-3 x daily - 3 reps - 20 seconds hold - Seated Wrist Supination Stretch - 2-3 x daily - 10 reps - 20 seconds hold - Wrist Flexion and Extension AROM - 2 x daily - 10 reps - Seated Wrist Radial Ulnar Deviation AROM - 2 x daily - 10 reps - Finger Spreading - 2 x daily -10 reps - Thumb Opposition - 2 x daily - 5 reps - 3 seconds hold - Wrist Tendon Gliding - 2 x daily- 5 reps - 3 seconds hold Manual Therapy ([id number]) Intervention carpal joint mobs and PROM x15 mins PT Treatment Times Therex Total Time 23 4:05 - 4:28 Manual Therapy Total Time 15 4:28 - 4:43 Direct Treatment Time 38 Total Treatment Time 38 Goals: Physical Therapy Ortho Goals: CARRYING/MOVING/HANDLING: Patient will be able to lift and carry for ADL's, IADL's and work withoutdifficulty in 8 weeks SELF CARE: Patient will be able to complete ADL's including bathing, dressing, and hair care without difficulty in 3 weeks. IMPAIRMENT: Improve pain from 5/10 to <2/10 during lifting/carrying, gripping and repetitious UEtasks in 8 weeks IMPAIRMENT: Improve gross MMT of the Left Wrist to at least 4+/5 in 8 weeks IMPAIRMENT: Improve AROM of Left Wrist Flexion and Extension to at least 60 degrees in 8 weeks. IMPAIRMENT: Improve AROM of Left Forearm supination from 8 degrees to at least 70 degrees in 8 weeks. OTHER: Patient will increase FOTO score from 50 to at least 70 to show MDC/MCII and expected functional outcome in 8 weeks. OTHER: Patient will be able to properly demonstrate independence with HEP in 2 weeks. Patient Education: Verbal HEP and Diagnosis and recovery specific education with patient verbalizedunderstanding. Post-Treatment Pain Scale: 4 Assessment: Patient had an expected response to treatment. Skilled Intervention demonstrated by modifications of treatment per exercise log including assessment of patient's response and safety interventions per exercise log. Progress towards goals as expected. Plan for Next Visit: Treatment Visit with focus on ROM progressions Rikki Chavez PT State License, [id number] documented in this [id number] History of Present illness Narrative* Rikki Chavez, PT - 10/02/2024 9:15 AM EST Images from the original note were not included. [facility] Evaluation Today's Date 10/02/2024 Patient Name: Galina Serra Date of : 1970 Case Name: S/P ORIF of Left Distal Radius Functional Diagnosis: 1. Closed fracture of left wrist, initial encounter Clinical Information: Subjective Referring Diagnosis: S/P ORIF of Left Wrist Follow-up with physician: 10/26/2024 History of Present Illness Surgery Date: 09/11/2024 Days Post-Op: 21 Contemporary Medical History: Pt presents with a bit of a gap and drainage from the incision. I applied 3 steri strips with instruction to leave them in place until they start to peal away. There areno signs of infection at this time. Subjective History: Pt is beginning outpatient PT s/p ORIF of left distal radius. She followed up with her surgeon this past Tuesday and had the gurwinder removed. She reports mild pain overall and her primary complaint is stiffness and swelling. She denies abnormal sensation in the wrist and hand. She has been doing a little stretching and active movement on her own. Previous Imaging: X-ray Hand dominance: right Pain Scale Pain location: wrist Average Pain: 2/10 Pain at highest: 5/10 Aggravating factors: gripping, wrist AROM Easing factors: rest, ice 24 Hour Symptom Behavior Morning Pain: sudden Afternoon Pain: better End of day pain: worse Personal Goals: Manage pain Decrease swelling Improve ROM and strength Return to prior level of function Functional Mobility Status Functional Limitations: recent decline in level of ADL Social Support: Restorationism, social, or cultural considerations to be made aware of before starting treatment: No Activities of Daily Living: independent with all Upper Body Dressing: increased time and effort with all Lower Body: increased time and effort with all Instrumental Activities of Daily Livingto be assessed 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 yes Red Flags: None Comments: Barriers to Care: None Restorationism, social, or cultural considerations to be made aware of before starting treatment: No Wrist/Hand Left Wrist/Hand Range of Motion: Wrist Flexion: Active: 18 Wrist Extension: Active: 34 Radial Deviation: Active: 14 Ulnar Deviation Active: 24 Supination Active: 8 Pronation Active: 90 Additional Findings: Finger and opposition ROM is WNL FOTO: 50 Treatments: Physical Therapy Exercise Log - 10/02/24 0970 OTHER Precautions/Contraindications Supervising PT: Adrien - Left Wrist ORIF 09/11 Notes Eval: 9:16 - 10:02 [employer] Therapeutic Exercise (41514) Intervention initial HEP: Parameters forearm and wrist flex/ext stretches Intervention supination stretch Parameters flex/ext AROM Intervention radial/ulnar deviation Parameters finger spreading w/ palm flat Intervention opposition / tendon glides Parameters Access Code: [email or web address] URL: [email or web address] Date: 10/02/2024 Prepared by: Rikki Chavez Exercises - Standing Wrist Flexion Stretch - 2-3 x daily - 3 reps - 20 seconds hold - Standing Wrist Extension Stretch - 2-3 x daily - 3 reps - 20 seconds hold - Seated Wrist Supination Stretch - 2-3 x daily - 10 reps - 20 seconds hold - Wrist Flexion and Extension AROM - 2 x daily - 10 reps - Seated Wrist Radial Ulnar Deviation AROM - 2 x daily - 10 reps - Finger Spreading - 2 x daily -10 reps - Thumb Opposition - 2 x daily - 5 reps - 3 seconds hold - Wrist Tendon Gliding - 2 x daily- 5 reps - 3 seconds hold Manual Therapy (47622) Intervention carpal joint mobs and PROM x10 mins PT Treatment Times Manual Therapy Total Time 10 Direct Treatment Time 10 Total Treatment Time 46 Goals: Physical Therapy Ortho Goals: CARRYING/MOVING/HANDLING: Patient will be able to lift and carry for ADL's, IADL's and work withoutdifficulty in 8 weeks SELF CARE: Patient will be able to complete ADL's including bathing, dressing, and hair care without difficulty in 3 weeks. IMPAIRMENT: Improve pain from 5/10 to <2/10 during lifting/carrying, gripping and repetitious UEtasks in 8 weeks IMPAIRMENT: Improve gross MMT of the Left Wrist to at least 4+/5 in 8 weeks IMPAIRMENT: Improve AROM of Left Wrist Flexion and Extension to at least 60 degrees in 8 weeks. IMPAIRMENT: Improve AROM of Left Forearm supination from 8 degrees to at least 70 degrees in 8 weeks. OTHER: Patient will increase FOTO score from 50 to at least 70 to show MDC/MCII and expected functional outcome in 8 weeks. OTHER: Patient will be able to properly demonstrate independence with HEP in 2 weeks. CPT Code 24774 Low 21378 Moderate 94214 High History 0 1-2 3+ Comorbidities: no PMH on file, Personal factors: chronicity or severity of the current condition Examination of body systems (elements of body structures & functions, activity limitations, and/or participation restrictions) 1-2 elements 3+ elements 4+ elements See below clinical impression Clinical Presentation Stable Evolving Unstable As evidenced by improving symptom level since surgical intervention Decision Making Low (FOTO >/= 69) Moderate (FOTO 34 - 68) High (FOTO </= 33) FOTO score= 50 Pt is a 54 y.o. female who presents to PT services s/p ORIF of the left wrist. Upon assessment, pt has been found with the following impairments: decreased ROM, decreased strength, swelling, and pain. 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 The pt would benefit from skilled PT services focused on the above listed impairments and limitations in order to safely progress pt to their desired level of function. Pt to be discharged from OP PT services if/when goals are met, if they fail to make progress with conservative management in PT, if their level of progress plateaus, or if they do not maintain compliance with attendance or HEP. At this time, it is my clinical judgment that services are medically necessary. Plan of Care Frequency of Visits: 2 times per week Duration: 8 weeks Interventions: Therapeutic Exercise (08581), Neuromuscular Re-Education (38464), Manual Therapy (46631), Therapeutic/ Functional Activities (80754), and Hot/Cold Pack (39325) Rehab Potential: good Patient Education Provided Pt was educated on the benefits of therapy and importance of compliance with sessions and HEP for rehabilitation. Pt was also educated on treatment diagnosis, POC, and frequency/duration of treatment. Rikki Chavez PT State License, [id number] documented in this [id number] Cheryl comes in today for 2-week followup left distal radius ORIF. At this point in time, wounds are healed. No signs of infection. Flexor and extensor tendons are intact. She has 30 degrees of wrist flexion and extension, 60 degrees of pronation and supination. IMAGING X-rays show no change in the hardware. IMPRESSION Two weeks open reduction, internal fixation, left radius. PLAN She will do local wound care, home exercises. I am going to do formal physical therapy for her, and I will see her in a month. I did a narcotic review. Last medication was [place] on 09/18/2024. AUTHENTICATED BY ANALISA AGUAYO, ON 09/29/2024 15:18:08[facility] [id number] History of Present illness Narrative* Leatha Hi, DIESEL AUTOMOTIVE TECHNICIAN - 09/10/2024 4:04 PM EST [facility] [address] [facility] [address] [facility] [id number] Chief Complaint Patient presents with Left Wrist - Injury Galina Serra, 54-year-old female presents to the office today with complaints of left wrist pain. Last she ended up falling down some steps, injuring the left wrist. She was evaluated in the emergency room and was found to have a distal radius fracture. She was placed in a splint and instructed to follow-up with orthopedics for further treatment and evaluation. Today she reports continued pain and swelling. She was given some Percocet as well as Toradol from the emergency room. This does seem to keep the pain manageable. She has been wearing the splint given to her by the emergency room at all time. She is having some numbness and tingling with in the fingers. She is able to move all of her fingers although painful. 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 The patient's past medical history, surgical history, social history, family history, medications and allergies were reviewed with the patient today and are available in the chart for further review. No Known Allergies Current Outpatient Medications: ketorolac (TORADOL) 10 mg tablet, Take 1 (one) tablet (10 mg total) by mouth 3 (three) times a day as needed for pain ., Disp: 15 tablet, Rfl: 0 oxyCODONE-acetaminophen (PERCOCET) 5-325 mg per tablet, Take 1 (one) tablet by mouth every 6 (six) hours as needed for pain (Days supply per fill: 5) ., Disp: 20 tablet, Rfl: 0 History reviewed. No pertinent past medical history. Past Surgical History: Procedure Laterality Date SECTION Social History Socioeconomic History Marital status: Tobacco Use Smoking status: Never Smokeless tobacco: Never Vaping Use Vaping status: Never Used Substance and Sexual Activity Alcohol use: Never Drug use: Never ROS: Review of Systems Constitutional: Negative for activity change and fatigue. HENT: Negative for congestion, hearing loss and trouble swallowing. Eyes: Negative for visual disturbance. Respiratory: Negative for chest tightness and shortness of breath. Cardiovascular: Negative for chest pain and palpitations. Gastrointestinal: Negative for abdominal pain, diarrhea, nausea and vomiting. Endocrine: Negative for polydipsia, polyphagia and polyuria. Genitourinary: Negative for decreased urine volume, difficulty urinating and hematuria. Musculoskeletal: Positive for arthralgias, joint swelling and myalgias. Skin: Negative for color change, rash and wound. Allergic/Immunologic: Negative for immunocompromised state. Neurological: Negative for dizziness, weakness, light-headedness and numbness. Hematological: Does not bruise/bleed easily. Psychiatric/Behavioral: Negative for confusion and sleep disturbance. The patient is not nervous/anxious. PE: Physical Exam Constitutional: Appearance: She is well-developed. HENT: Head: Normocephalic. Eyes: Pupils: Pupils are equal, round, and reactive to light. Cardiovascular: Rate and Rhythm: Normal rate and regular rhythm. Pulmonary: Effort: Pulmonary effort is normal. Breath sounds: Normal breath sounds. Abdominal: General: Bowel sounds are normal. Palpations: Abdomen is soft. Musculoskeletal: General: Swelling, tenderness and signs of injury present. Left wrist: Swelling, tenderness and bony tenderness present. Decreased range of motion. Normal pulse. Left hand: Swelling present. Normal sensation. Normal capillary refill. Normal pulse. Cervical back: Normal range of motion and neck supple. Comments: Ecchymosis noted to the left wrist extending into the hand. Skin: General: Skin is warm and dry. Neurological: Mental Status: She is alert and oriented to person, place, and time. Imaging: L Wrist: Comminuted intra-articular fracture of the distal radius with dorsal angulation Assessment/Plan: After examination and reviewing of the patient x-ray images, we discussed treatment for the left wrist. I did inform the patient that she would need surgical intervention for that left wrist. She will undergo a left distal radius ORIF with Dr. Aguayo. Dr. Cox is going to add her on the surgery schedule her for tomorrow, 09/11/2024. I did place her in a more supportive wris t splint to be worn at all times. She is to continue with her pain medication although I did explain she is to not take the Toradol. She will be contacted with the surgery time for tomorrow. I am more than happy to see her back if needed. documented in this [id number] [address] [address] [facility] [address] [facility] [id number] Chief Complaint Patient presents with Left Wrist - Injury Galina Serra, 54-year-old female presents to the office today with complaints of left wrist pain. Last she ended up falling down some steps, injuring the left wrist. She was evaluated in the emergency room and was found to have a distal radius fracture. She was placed in a splint and instructed to follow-up with orthopedics for further treatment and evaluation. Today she reports continued pain and swelling. She was given some Percocet as well as Toradol from the emergency room. This does seem to keep the pain manageable. She has been wearing the splint given to her by the emergency room at all time. She is having some numbness and tingling with in the fingers. She is able to move all of her fingers although painful. 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 The patient's past medical history, surgical history, social history, family history, medications and allergies were reviewed with the patient today and are available in the chart for further review. No Known Allergies Current Outpatient Medications: ketorolac (TORADOL) 10 mg tablet, Take 1 (one) tablet (10 mg total) by mouth 3 (three) times a day as needed for pain ., Disp: 15 tablet, Rfl: 0 oxyCODONE-acetaminophen (PERCOCET) 5-325 mg per tablet, Take 1 (one) tablet by mouth every 6 (six) hours as needed for pain (Days supply per fill: 5) ., Disp: 20 tablet, Rfl: 0 History reviewed. No pertinent past medical history. Past Surgical History: Procedure Laterality Date SECTION Social History Socioeconomic History Marital status: Tobacco Use Smoking status: Never Smokeless tobacco: Never Vaping Use Vaping status: Never Used Substance and Sexual Activity Alcohol use: Never Drug use: Never ROS: Review of Systems Constitutional: Negative for activity change and fatigue. HENT: Negative for congestion, hearing loss and trouble swallowing. Eyes: Negative for visual disturbance. Respiratory: Negative for chest tightness and shortness of breath. Cardiovascular: Negative for chest pain and palpitations. Gastrointestinal: Negative for abdominal pain, diarrhea, nausea and vomiting. Endocrine: Negative for polydipsia, polyphagia and polyuria. Genitourinary: Negative for decreased urine volume, difficulty urinating and hematuria. Musculoskeletal: Positive for arthralgias, joint swelling and myalgias. Skin: Negative for color change, rash and wound. Allergic/Immunologic: Negative for immunocompromised state. Neurological: Negative for dizziness, weakness, light-headedness and numbness. Hematological: Does not bruise/bleed easily. Psychiatric/Behavioral: Negative for confusion and sleep disturbance. The patient is not nervous/anxious. PE: Physical Exam Constitutional: Appearance: She is well-developed. HENT: Head: Normocephalic. Eyes: Pupils: Pupils are equal, round, and reactive to light. Cardiovascular: Rate and Rhythm: Normal rate and regular rhythm. Pulmonary: Effort: Pulmonary effort is normal. Breath sounds: Normal breath sounds. Abdominal: General: Bowel sounds are normal. Palpations: Abdomen is soft. Musculoskeletal: General: Swelling, tenderness and signs of injury present. Left wrist: Swelling, tenderness and bony tenderness present. Decreased range of motion. Normal pulse. Left hand: Swelling present. Normal sensation. Normal capillary refill. Normal pulse. Cervical back: Normal range of motion and neck supple. Comments: Ecchymosis noted to the left wrist extending into the hand. Skin: General: Skin is warm and dry. Neurological: Mental Status: She is alert and oriented to person, place, and time. Imaging: L Wrist: Comminuted intra-articular fracture of the distal radius with dorsal angulation Assessment/Plan: After examination and reviewing of the patient x-ray images, we discussed treatment for the left wrist. I did inform the patient that she would need surgical intervention for that left wrist. She will undergo a left distal radius ORIF with Dr. Aguayo. Dr. Cox is going to add her on the surgery schedule her for tomorrow, 09/11/2024. I did place her in a more supportive wrist splint to be worn at all times. She is to continue with her pain medication although I did explain she is to not take the Toradol. She will be contacted with the surgery time for tomorrow. I am more than happy to see her back if needed. AUTHENTICATED BY LEATHA HI, ON 09/10/2024 16:24:21[facility]07-27-2023 History of Present illness Narrative* 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, TICKET ATTENDANT- DIESEL AUTOMOTIVE TECHNICIAN - 04/14/2023 9:30 AM EDT Subjective Galina Serra is a 52 y.o. female and is here for a comprehensive physical exam. The patient reports problems - lump to right side, vascular problems to lower legs . Denies any pain associated with lump, noticed months ago, no change in size Do you take any herbs or supplements that were not prescribed by a doctor? no Are you taking calcium supplements? no Are you taking aspirin daily? no History: LMP: No LMP recorded. 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 Wants referral Abnormal pap? no : 2 Para: 2 C-sections Do you have pain that bothers you in your daily life? no Review of Systems Gastrointestinal: Negative for diarrhea, nausea and vomiting. Musculoskeletal: Negative for arthralgias and myalgias. Objective Physical Exam Constitutional: Appearance: She is obese. Cardiovascular: Rate and Rhythm: Normal rate and regular rhythm. Neurological: Mental Status: She is alert and oriented to person, place, and time. Assessment/Plan Healthy female exam. 1. Lump RUQ: will obtain US abdomen to further assess, suspect lipoma - Advised to wear compression socks daily to improve lower extremity circulation - Advised to see PAWN SH[employer] KEEPER for PAP and discuss use of oral contraceptive after menopause. 2. Patient Counseling: --Nutrition: Stressed importance of moderation in sodium/caffeine intake, saturated fat and cholesterol, caloric balance, sufficient intake of fresh fruits, vegetables, fiber, calcium, iron, and 1 mgof folate supplement per day (for females capable of ). --Discussed the issue of estrogen replacement, calcium supplement, and the daily use of baby aspirin. --Exercise: Stressed the importance of regular exercise. --Immunizations reviewed. --Discussed benefits of screening colonoscopy. --After hours service discussed with patient 3. Discussed the patient's BMI with her. The BMI is above average. The patient received Provided instructions on dietary changes Provided instructions on exercise Advised to Increase physical activity because they have an above normal BMI. 4. Follow up in one year documented in this [facility] Work Phone: [phone]) 267-424807-07-2021 NoteHNO ID: [id number] Author: Rebeca Payne MD Service: ? Author Type: Physician Type: Progress Notes Filed: 03/25/2021 9:41 PM Note Text: Reason for Visit Patient presents with: Establish Care: establish care and insurance forms Galina Serra is a 50 year old female who presents here today for CPE. Health Maintenance DEPRESSION SCREENING COVID-19 VACCINE(1) HEPATITIS C SCREENING HIV SCREENING DTAP,TDAP,TD(1 - Tdap) PAP TESTING HPV TESTING MAMMOGRAM LIPID SCREEN DIABETES SCREEN SHINGRIX VACCINE(1 of 2) HPI Reviewed her labs her hba1c is 5.5. cbc, cmp are normal. The lipids show her ldl is on the higher side.. at around 135.. She bakes but tries not to eat as much as she bakes. High LDL- 20 mins of walking daily was discussed.... diet: she Has been trying to cut out carbs as much as possible. Obesity-bmi is 33... she has lost around 7 pounds in the past 2 weeks, she does her own gardening, she gardens around an hour or 2, pulling weeds and harvesting all that she has. She puts in 5 to 7 hours daily. She slows down every so often. 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 We discussed walking some time in her work as she gets up in the morning around 4 and sleeps around 10:30 And up around 4. She has been gaining weight due to menopause. It has been a year since her periods. She got her period last February, she is in official menopause. She did have her colonoscopy , had it done by Dr Mckeon The last time she had the pap And pelvic was couple years ago. Patient does snore when she is tired... she does not have issues with sleeping. Feels well, peppy most days No problem-specific Assessment AND Plan notes found for this encounter. PAST MEDICAL HISTORY Diagnosis Date - Obesity PAST SURGICAL HISTORY Procedure Laterality Date - , CLASSIC, IN-HOSP CARE 2008 - COLONOSCOP W/ OR W/O [facility] SPEC 10/07/2015 Repeat 2025 - PAST SURGICAL HISTORY OF Bilateral 1987 bone spurr removal - PAST SURGICAL HISTORY OF multiple surgies for endometriosis - TUBAL LIGATION HX 2010 FAMILY HISTORY Problem Relation Age of Onset - Cancer Maternal Uncle Social History Tobacco Use - Smoking status: Never Smoker - Smokeless tobacco: Never Used Substance Use Topics - Alcohol use: No - Drug use: No Past medical history, appointments, medications, allergies reviewed. Pertinent Lab/Diagnostic Studies are reviewed and discussed today Current Outpatient Medications: - oxyCODONE-acetaminophen (PERCOCET) 5-325 mg tablet Review of Systems CONSTITUTIONAL: No fevers, chills, nightsweats, unintended weight loss HEENT: Denies frequent or severe heaches, nasal congestion/sinus symptoms, problematic allergy problems. EYES: No diplopia or blurry vision. CARDIOVASCULAR: No chest pain, dyspnea, palpitations, orthopnea, PND, ankle edema. PULM: No dyspnea, unexplained cough. GI: No dysphagia/odynophagia, problematic reflux, constipation, diarrhea, changes in stool habits, hematochezia, melena. : No new urinary complaints, including dysuria, gross hematuria or pyuria. NEURO: No new balance problems, peripheral weakness/paresthesias or numbness of concern. MUSC-SKEL: No new joint pain, swelling, or erythema. PSY: No concerns regarding depression, anxiety or panic. INTEGUMENTARY: No new skin changes (rash, new or changing mole, new growth) Physical Exam BP 132/62 (BP Site: Left Arm, BP Position: Sitting, BP Cuff Size: Large Adult) Pulse 85 Temp 36.4 ?C (97.5 ?F) Resp 12 Ht 162.6 cm (5' 4) Wt 89.4 kg (197 lb) LMP 09/05/2015 (Exact Date) SpO2 97% BMI 33.81 kg/m? General appearance: Well appearing, alert, in no acute distress, well-hydrated, well nourished. Skin: Skin color, texture, turgor normal, no suspicious rashes or lesions Head: Normocephalic, no masses, lesions, tenderness or abnormalities Eyes: Anicteric sclera. Pupils are equally round and reactive to light. Extraocular movements are intact. Ears: External ears normal, canals clear Nose/Sinuses: Nares normal, septum midline, mucosa normal, no drainage or sinus tenderness Oropharynx: Lips, mucosa, and tongue normal, teeth and gums normal, oropharynx normal Neck: Supple, no adenopathy; thyroid symmetric, normal size, no bruits Back: Normal exam Lungs: Lungs clear to auscultation. No wheezing, rhonchi, rales Heart: RRR without murmur, gallop, or rubs. No ectopy Abdomen: Normal abdominal exam, Abdomen soft, non-tender. Bowel sounds normal. No masses, organomegaly Extremities: No deformities, edema, skin discoloration, clubbing or cyanosis. Good capillary refill. Musculoskeletal: No joint swelling, deformity, or tenderness Peripheral pulses: Normal Neuro: Gait normal. Reflexes normal and symmetric. Sensation grossly intact. ASSESSMENT/PLAN: 1. Physical exam, annual - ICD9: V70.0, ICD10: Z00.00 (primary diagnosis) - Encouraged monthly (more content not included)...[facility] Evaluation note* Diagnosis Right upper quadrant abdominal swelling, mass and lump- Primary Concern about varicose veins without diagnosis Postmenopausal Asymptomatic postmenopausal status (age-related) (natural) History of endometriosis Personal history of other genital system and obstetric disorders Obesity (BMI 30-39.9) documented in this encounter [facility] Work Phone: Evaluation note* Diagnosis Closed Colles' fracture of left radius, initial encounter- [facility] Diagnosis Closed fracture of left wrist, initial encounter- Primary [facility]* Diagnosis Closed fracture of left wrist, initial encounter- Primary [facility]* Diagnosis Closed fracture of left wrist, initial encounter- Primary [facility]* Diagnosis Closed fracture of left wrist, initial encounter [facility]* Diagnosis Closed fracture of left wrist with routine healing, subsequent encounter- Primary [facility]* Diagnosis Closed fracture of left wrist with routine healing, subsequent encounter- Primary [facility]* Diagnosis Closed fracture of left wrist with routine healing, subsequent encounter- Primary [facility]* Diagnosis Closed fracture of left wrist with routine healing, subsequent encounter- Primary [facility]* Diagnosis Closed fracture of left wrist with routine healing, subsequent encounter- Primary [facility]* Diagnosis Closed fracture of left wrist with routine healing, subsequent encounter- Primary [facility]* Diagnosis Closed fracture of left wrist with routine healing, subsequent encounter- Primary [facility]* Diagnosis Closed fracture of left wrist with routine healing, subsequent encounter- Primary [facility]* Diagnosis Closed fracture of left wrist with routine healing, subsequent encounter- Primary [facility]* Diagnosis Closed fracture of left wrist with routine healing, subsequent encounter- Primary [facility]* Diagnosis Closed fracture of left wrist with routine healing, subsequent encounter- Primary [facility]* Diagnosis Closed fracture of left wrist with routine healing, subsequent encounter- Primary [facility]* Diagnosis Closed fracture of left wrist with routine healing, subsequent encounter- Primary [facility]* Diagnosis Onset Date Resolution Status Admit Date Encounter for routine gynecological examination noneactive February 172024 11:07am [facility] Work Phone: Progress note Author Samaria Fonseca [facility] Note Date/Time March 05, 2025 11:4 3am [facility] [address], [address] [place] [address] OFFICE VISIT Date of Service: 03/05/25 MR#: [id number] Acct: [id number] Name: GALINA SERRA Rep #: [id number] : 1970 Provider: Dr. 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 Is patient in pain?: No Allergies No Known Allergies Allergy (Verified 03/05/25 11:15) Medications ?Medication ?Instructions ?Recorded ?Confirmed ?Type NK 07/01/23 03/05/25 History Post menopausal: No Patient : No : No PFSH Surgical History H/O excision of mass Family History Uncle Myocardial infarction x3 Social History (Updated 03/05/25 @ 11:16 by Rianna Reed) Smoking Status: Never smoker alcohol intake: never substance use type: does not use caffeine: No what type of physical activity do you participate in: none seatbelt use: always do you feel safe at home: Yes additional social history: - Analisa History 2 Elective abortions Hx Para 2 Spontaneous abortions Hx # Term Pregnancies Ectopic pregnancies Hx # Pregnancies Multiple births # of living children Past Pregnancies Del. Date Name GA/Weeks Outcome Route Bth Weight Infant Gen Labor Lgth Anesthesia Del [facility] Provider FOB Unknown Yamel Unknown Floridalma HPI Encounter for routine gynecological examination Details: GALINA SERRA is a 54 year old who presents for annual exam. Last PAP:03/02/2024 History of abnormal PAP: n/a Last mammogram: 03/09/2024 History of abnormal mammogram: no Colon cancer screening: up to date Other preventative health care screenings: followed by pcp, no longer pre- diabetic. recently lost 20 pounds on purpose. Female Reproductive History Questions: metorrhagia: No, sexually active: Yes, dyspareunia: No and PCB: No Menopausal Symptoms: No hot flashes, No night sweats, No weight change, No mood changes, No difficulty concentrating, No sleep problems and No change in libido ROS Const Constitutional: Reports as per HPI; Denies fatigue, increased appetite, poor appetite, night sweats, weight gain or weight loss Cardio Card: Denies chest pain Resp Resp: Denies cough or dyspnea GI GI: Reports as per HPI; Denies abdominal pain, bloating, constipation, nausea or vomiting : Reports as per HPI and other; Denies difficulty voiding, dysuria, hematuria, hot flashes, nipple discharge, pelvic pain, prolapse symptoms, urinary frequency, urinary incontinence, urinary urgency, vaginal discharge, vaginal dryness, vaginal odor or vaginal pruritus Skin Skin/Breast: Denies changing lesions, breast mass, breast pain, breast skin changes or nipple discharge Psych Psych: Denies anxiety, change in libido, depression or difficulty concentrating Exam Const General: cooperative, healthy appearing, comfortable, no acute distress, well developed and well groomed [facility] Head: normal to inspection and normocephalic Ears: hearing grossly normal bilaterally and external ears normal Nose: external nose normal Face and sinus: normal facial exam Neck Neck: normal visual inspection, full ROM and no lymphadenopathy Thyroid: thyroid normal Chest Chest palpation & inspection: normal inspection of the chest Breast inspection: normal inspection of the breasts and normal inspection of theaxillae Breast palpation: normal palpation of the breasts, normal palpation of the axillae and no axillary lymphadenopathy Resp Effort & Inspection: normal respiratory effort GI Inspection: normal to inspection and non-distended Palpation: soft, no hepatosplenomegaly and no guarding General: bladder normal to palpation External Female Exam: normal external appearance, normal appearance of the urethra and no lesions Urethra: normal appearance of the urethra and normal palpation Speculum Exam - Vagina: normal appearance of the vagina and normal vaginal discharge Speculum Exam - Cervix: normal appearance of the cervix, no cervical discharge, no lesions and nontender Bimanual Exam- Vagina & Uterus: normal bimanual exam, uterine size normal, bladder normal to palpation, No tender, uterine mobility normal, consistency normal, non-tender and no cervical motion tenderness Bimanual Exam- Adnexa, other: normal adnexae, no masses and non-tender Skin General: no rashes or lesions noted Neuro General: patient alert, moves all extremities and no focal motor deficits Extrem General: normal to inspection and no pedal edema Psych Appearance: grossly normal Mental Status: mental status grossly normal Affect: normal affect Speech and Movement: speech and movement normal Attitude: cooperative Coding Level of Care Code Off vis,est,prev 40-64yrs Diagnoses Encounter for routine gynecological examination Z01.419 Assessment and Plan Assessment and Plan (1) Encounter for routine gynecological examination: Plan: Cervical cancer screening: pap up to date Breast cancer screening: mammogram ordered other health maintenance examination reviewed and orders placed if needed. Encouraged maintenance of a healthy weight and active lifestyle and handout given. Annual exam handout including recommendations for good health guidelines, Calcium/vitamin D recommendations, and basic screening information given. Problem list up to date, see problem list details for any additional plan information. Follow up in one year for annual health maintenance exam or sooner if needed. 03/05/25 1143 <Electronically signed by Samaria Epperson DO> Date _ Samaria Correa DO Cosigner Signature: Date (if applicable) CC: ~ [employer] Work Phone: Reason for referral (narrative)* Consultation (Routine) - Authorized Specialty Diagnoses / Procedures Referred By Alice thompson Referred To Contact Primary Care Procedures Follow Up In Primary Care - Health Maintenance 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 APRN-CNP [address] [facility], [place] [address] Referral ID Status Reason Start Date Expiration Date V isits Requested Visits Authorized [id number] Authorized 04/14/2023 10/11/2023 1 1 * Consultation (Routine) - Authorized Specialty Diagnoses / Procedures Referred By Alice thompson Referred To Contact Gynecology Diagnoses History of endometriosis Procedures OR OFFICE/OUTPATIENT NEW HIGH MDM 60-74 MINUTES 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 APRN-CNP [address] [facility], [address] [place] [address] Referral ID Status Reason Start Date Expiration Date Visits Requested Visits Authorized [id number] Authorized Specialty Services Required 04/14/2023 10/11/2023 1 1 Scheduling Instructions [facility] [address], [address] [place] [address] PHONE: T [facility] Work Phone: Reason for referral (narrative)No reason for referral [facility] Work Phone: Reason for visit Narrative* Orthopedic PT (Routine) - Authorized Specialty Diagnoses / Procedures Referred By Contchanel t Referred To Contact Rehabilitation Diagnoses Closed fracture of left wrist, initial encounter Analisa Aguayo MD [address] [place] [phone] Phone: tel: fax: [facility] [address] [place] [address] Phone: tel: fax: Referral ID Status Reason Start Date Expiration Date V isits Requested Visits Authorized [id number] Authorized 09/29/2024 09/29/2025 13 13 [facility] Summary Purpose Family History No Family History Records Found Relationship Condition Age at Onset Recorded Date/T cherise uncle Myocardial infarction Unknown Advance Directives No Advanced Directives Records FoundNo Advanced Directives Records FoundNo Advanced Directives Records FoundNo Advanced Directives Records FoundNo Advanced Directives Records FoundNo Advanced Directives Records FoundNo Advanced Directives Records FoundNo Advanced Directives Records Found Chief Complaint and Reason for Visit Chief Complaint Admit Date Annual ([employer]) March 05, 2025 11:0 7am Reason for Visit Admit Date Encounter for routine gynecological exam ination March 05, 2025 11:07am Chief Complaint Admit Date Annual ([employer] KEEPER) March 05, 2025 11:0 7am SCREENING March 26, 2025 7:54a m BIRADS 4- MAMMO ONLY March 29, 2025 9:4 4am Additional Source Comments INFORMATION SOURCE (unrecogn ized section and content) DATE CREATED AUTHOR 07/21/2018 [facility] DATE CREATED AUTHOR AUTHOR'S ORGANIZ ATION 07/21/2018 [facility] DATE CREATED AUTHOR AUTHOR'S ORGANIZ ATION 10/11/2021 [facility] DATE CREATED AUTHOR AUTHOR'S ORGANIZ ATION 05/12/2023 [facility] DATE CREATED AUTHOR AUTHOR'S ORGANIZ ATION 10/02/2024 [facility] DATE CREATED AUTHOR AUTHOR'S ORGANIZ ATION 11/26/2024 [facility] DATE CREATED AUTHOR AUTHOR'S ORGANIZ ATION 11/28/2024 [facility] DATE CREATED AUTHOR AUTHOR'S ORGANIZ ATION 03/30/2025 [facility] Reason for Visit (unrecogniz ed section and content) Reason Comments Establish Care Reason Comments Injury Reason Onset Date Comments Medication Refill 09/17/2024 Reason Comments Follow-up Reason Comments Physical Therapy Specialty Diagnoses / Procedures Referred By Contac t Referred To Contact Rehabilitation Diagnoses Closed fracture of left wrist, initial encounter Analisa Aguayo MD [address] [place] [phone] Phone: tel: fax: [facility] [address] [place] [address] Phone: tel: fax: Referral ID Status Reason Start Date Expiration Date V isits Requested Visits Authorized [id number] Authorized 09/29/2024 09/29/2025 9 9 Referral ID Status Reason Start Date Expiration Date V isits Requested Visits Authorized [id number] Authorized 09/29/2024 09/29/2025 13 13 Reason Comments Wound Check Reason Onset Date Comments Medication Refill 10/12/2024 Reason Comments Fracture Follow-up Referral ID Status Reason Start Date Expiration Date Visits Re quested Visits Authorized [id number] Closed 09/29/2024 09/29/2025 13 13 Referral ID Status Reason Start Date Expiration Date Visits Re quested Visits Authorized [id number] Closed 09/29/2024 12/17/2025 13 13 Reason Comments Follow-up Care Teams (unrecognized sec tion and content) City Auditor Relationship Specialty Start Date End Date 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 Della, TICKET ATTENDANT-DIESEL AUTOMOTIVE TECHNICIAN [address] [facility], [facility] [address] [place] [address] PCP - General Family Medicine 04/12/23 City Auditor Relationship Specialty Start Date End Date No, Physician [facility] PCP - General 09/06/24 City Auditor Relationship Specialty Start Date End Date No, Physician [facility] PCP - General 09/06/24 City Auditor Relationship Specialty Start Date End Date No, Physician [facility] PCP - General 09/06/24 City Auditor Relationship Specialty Start Date End Date No, Physician [facility] PCP - General 09/06/24 City Auditor Relationship Specialty Start Date End Date No, Physician [facility] PCP - General 09/06/24 City Auditor Relationship Specialty Start Date End Date No, Physician [facility] PCP - General 09/06/24 City Auditor Relationship Specialty Start Date End Date No, Physician [facility] PCP - General 09/06/24 City Auditor Relationship Specialty Start Date End Date No, Physician [facility] PCP - General 09/06/24 City Auditor Relationship Specialty Start Date End Date No, Physician [facility] PCP - General 09/06/24 City Auditor Relationship Specialty Start Date End Date No, Physician [facility] PCP - General 09/06/24 City Auditor Relationship Specialty Start Date End Date No, Physician [facility] PCP - General 09/06/24 City Auditor Relationship Specialty Start Date End Date No, Physician [facility] PCP - General 09/06/24 City Auditor Relationship Specialty Start Date End Date No, Physician [facility] PCP - General 09/06/24 City Auditor Relationship Specialty Start Date End Date No, Physician [facility] PCP - General 09/06/24 Team Status: Inactive Member Role Status Dates Dr. Samaria Correa DO Attending Provider Activ e Start: March 05, 2025 End: March 05, 2025 Team Status: Active Member Role/Relationship Status Dates No Primary Care Physician Primary Care Provider Active Team Status: Inactive Member Role/Relationship Status Dates Dr. Samaria Correa DO Attending Provider Activ e Start: March 05, 2025 End: March 05, 2025 Team Status: Active Member Role/Relationship Status Dates Dr. Samaria Correa DO Attending Provider Activ e Start: March 26, 2025 Dr. Samaria Correa DO Referring Provider Activ e Start: March 26, 2025 No Primary Care Physician Primary Care Provider Active Start: March 26, 2025 Team Status: Inactive Member Role/Relationship Status Dates No Primary Care Physician Primary Care Provider Active Start: March 29, 2025 End: March 29, 2025 No Primary Care Physician Referring Provider Active Start: March 29, 2025 End: March 29, 2025 Dr. Salena Rodríguez MD Attending Provider Active Start: March 29, 2025 End: March 29, 2025 Goals (unrecognized section and content) Goals may be documented in a n alternate sectionGoals may be documented in an alternate section FOR RECORDS PERTAINING TO PATIENTS WHO ARE OR HAVE BEEN ENROLLED IN A CHEMICAL DEPENDENCY/SUBSTANCEABUSE PROGRAM, SOME INFORMATION MAY BE OMITTED. This clinical summary was aggregated from multiple sources. Caution should be exercised in using it in the provision of clinical care. This summary normalizes information from multiple sources, and as a consequence, information in this document may materially change the coding, format and clinical context of patient data. In addition, data may be omitted in some cases. CLINICAL DECISIONS SHOULD BE BASED ON THE PRIMARY CLINICAL RECORDS. [employer] provides no warranty or guarantee of the accuracy or completeness of information in this document.
== END | disposition home or self-care (01) ==
PROVIDERS: Referring Provider Surgery; Visit Provider Surgery
DX: R92.8 Other abnormal and inconclusive findings on diagnostic imaging of breast (principal)
CPT/HCPCS: 76642

== ENCOUNTER 2025-04-08 13:16 | Outpatient (CLI) | payer BC, SELFPAY ==
--- NOTE | 2025-04-08 13:28 | US_ITS ---
PROCEDURE: US BREAST BIOPSY 1ST LESION 04/08/2025 REASON FOR EXAM: F, Age 54 y/o , LEFT BREAST MASS TECHNIQUE: US BREAST BIOPSY 1ST LESION COMPARISON: Prior exam(s) dating back to April 08, 2025.. FINDINGS: Under direct sonographic guidance, the surgeon performed core biopsies of the indistinct nodule at the 8 to 9 o'clock position of the breast at 5 cm from the nipple. US/US Breast Biopsy 1st Lesion IMPRESSION: OVERALL FINAL ASSESSMENT: BIRADS 11 WAITING PATHOLOGY RECOMMENDATION: Waiting on pathology results. Reading Location: [id number]
--- NOTE | 2025-04-08 13:28 | US_ITS ---
PROCEDURE: US BREAST BIOPSY 1ST LESION 04/08/2025 REASON FOR EXAM: F, Age 54 y/o , LEFT BREAST MASS TECHNIQUE: US BREAST BIOPSY 1ST LESION COMPARISON: Prior exam(s) dating back to April 08, 2025.. FINDINGS: Under direct sonographic guidance, the surgeon performed core biopsies of the indistinct nodule at the 8 to 9 o'clock position of the breast at 5 cm from the nipple. US/US Breast Biopsy 1st Lesion IMPRESSION: OVERALL FINAL ASSESSMENT: BIRADS 11 WAITING PATHOLOGY RECOMMENDATION: Waiting on pathology results. Reading Location: [id number]
--- NOTE | 2025-04-08 13:35 | BI_ITS ---
EXAM: DIAG MAMM W/CAD, UNILAT 04/08/2025 CLINICAL HISTORY: F, Age 54 y/o , ABN MAMM. Mass. Masses biopsied under ultrasound guidance. Document clip placement in relationship to biopsy site. TECHNIQUE: DIAG MAMM W/CAD, UNILAT. COMPARISON: Prior exam(s) dated 03/26/2025 and 03/09/2024. FINDINGS: TISSUE DENSITY: There are scattered areas of fibroglandular density. Bilateral Breast Mammographic Findings: A radiopaque clip is seen in the medial aspect of the left breast. Air and numbing medicine are seen along the biopsy track. There is a 5 mm partially obscured isodense mass at this location. BI/DIAG MAMM W/CAD, UNILAT IMPRESSION: Successful biopsy of the left breast mass. A radiopaque clip is now seen at th is location. Pathology is pending. OVERALL FINAL ASSESSMENT BI-RADS 4: SUSPICIOUS. The suspicious mass has been biopsied. A radiopaque cl ip is now present. Pathology is pending. A letter with findings and recommendations will be mailed to the patient. Reading Location: [id number]
--- NOTE | 2025-04-08 13:35 | BI_ITS ---
EXAM: DIAG MAMM W/CAD, UNILAT 04/08/2025 CLINICAL HISTORY: F, Age 54 y/o , ABN MAMM. Mass. Masses biopsied under ultrasound guidance. Document clip placement in relationship to biopsy site. TECHNIQUE: DIAG MAMM W/CAD, UNILAT. COMPARISON: Prior exam(s) dated 03/26/2025 and 03/09/2024. FINDINGS: TISSUE DENSITY: There are scattered areas of fibroglandular density. Bilateral Breast Mammographic Findings: A radiopaque clip is seen in the medial aspect of the left breast. Air and numbing medicine are seen along the biopsy track. There is a 5 mm partially obscured isodense mass at this location. BI/DIAG MAMM W/CAD, UNILAT IMPRESSION: Successful biopsy of the left breast mass. A radiopaque clip is now seen at th is location. Pathology is pending. OVERALL FINAL ASSESSMENT BI-RADS 4: SUSPICIOUS. The suspicious mass has been biopsied. A radiopaque cl ip is now present. Pathology is pending. A letter with findings and recommendations will be mailed to the patient. Reading Location: [id number]
--- NOTE | 2025-04-08 14:20 | BRBX_PTH ---
PATIENT: GALINA RIVAS LOC: OPUS U#:[id number] AGE/SX: 54/F ROOM: RE04/08/[address]: Dr. Oswald Rodríguez MD : 1970 BED: DIS: 04/08/2025 SPEC #: [id number] RECD: 04/08/25 14:55 STATUS: ALYSSA REKarla #: [id number] CAITLYN: 04/08/25 14:[address]: Oswald Rodríguez DEPT: SURGICAL PATHOLOGY RECD BY: Edison Girard ENTERED: 04/08/25 16:06 SP TYPE: BREAST BX OTHR DR: No Primary Care Phys Tissues: A - Left breast, NOS Procedures: Immunohistochemical Stains Surgery Specimen Level IV IHC Stain ADDITIONAL HEADER OPERATION: Ultrasound guided left breast core biopsy PRE-OP DIAGNOSIS: Abnormal mammogram, left TISSUE SUBMITTED: A- Left breast, 8-9o'clock, 5 cm from nipple Ischemic Time: <1 minute Fixation Time: 29 hours, 10 minutes MICROSCOPIC DIAGNOSIS A. Breast, left, abnormal mammo, 8-9 o'clock, 5 CMFN, ultrasound-guided core biopsy: - Invasive ductal carcinoma, Grade 2 (tubule 3, nuclear 2, mitosis 1), at least 0.5 cm. - Extensive ductal carcinoma in situ (DCIS), intermediate nuclear grade, cribriform pattern with focal comedonecrosis. - ER: positive (100%, strong intensity). - IN: positive (5%, strong intensity) - [id number]: PENDING to be reported in an addendum. - Ki67q: 10% Note: Ecadherin, CK5/6, and p40 support the histologic impression. CD31 is negative for lymphovascular invasion. MICROSCOPIC DESCRIPTION Slides are reviewed All matched controls reacted appropriately. These tests were developed and their performance characteristics determined by [facility]. They may not have been cleared or approved by the U.S. Food and Drug Administration. The FDA has determined that such clearance or approval is not necessary.? The above immunohistochemical/dualISH?markers are reviewed by the Pathologist.. GROSS DESCRIPTION A. Received in formalin labeled with the patient's name and date of . Designated as LT breast is a 2.5 x 1.0 x 0.1 cm aggregate of kolb-yellow tissue core fragments and clotted blood. Entirely submitted in 2 cassettes. Cold ischemic time: <1 minuteFormalin fixation time: 29 hours, 10 minutes MD 04/08/2025 CPT:[id number] ADDENDUM ADDENDUM ADDENDUM ADDENDUM ADDENDUM ADDENDUM ADDENDUM ADDENDUM ADDENDUM ADDENDUM ADDENDUM ADDENDUM ADDENDUM ADDENDUM ADDENDUM ADDENDUM 04/18/2025 11:10 ADDENDUM 04/18/2025 11:10 ADDENDUM 04/18/2025 11:10 ADDENDUM 04/18/2025 11:10 ADDENDUM 04/25/2025 11:18 ADDENDUM 06/11/2025 09:39 ADDENDUM 04/18/2025 11:10 This addendum is to report the result of the WUI1URG performed at [facility]: [id number]: equivocal (2+) [id number]: pending, to be reported in a subsequent addendum. All controls show appropriate reactivity. (HER2) All immunohistochemistry, in situ hybridization, and histochemical tests were developed by and are performed at the [facility], [address] [address], [place] [id number]. All Immunofluorescent (IF)?tests were developed by and are performed at the [facility], [address], [place], [place] ?[address]. All tests reported here, except those addressing HER2 overexpression as a predictive marker, have not been cleared by or approved by the [place] Food and Drug Administration (FDA). The laboratory is regulated under CLIA as qualified to perform high-complexity testing. The tests are used for clinical purposes. They should not be regarded as investigational or for research. This addendum is added to incorporate an outside pathology consultation report. The case was examined at [facility] by Dr. Monsivais (#[id number]) and the following diagnosis was rendered. A. Breast, left, abnormal mammo- 8-9o'clock, 5cmfn, ultrasound-guided core biopsy: HER2/FISH: Negative HER2 SCORE REPORT - A1: HER2 SCORE: Negative HER2 / CEP17 RATIO: 1.2 HER2 COPY NUMBER / CELL: 3.5 Please see complete above mentioned consultation report in EMR ONCOTYPE DX BREAST RECURRENCE SCORE REPORT - BLOCK A2 Recurrence Score Result: 12 Distant Recurrence Risk at 5 Years: 3% Group Average Absolute Chemotherapy Benefit: No apparent chemotherapy benefit (<1%) Please see complete above mentioned consultation report in EMR
--- NOTE | 2025-04-08 14:20 | BRBX_PTH ---
PATIENT: GALINA RIVAS LOC: OPUS U#:[id number] AGE/SX: 54/F ROOM: RE04/08/[address]: Dr. Oswald Rodríguez MD : 1970 BED: DIS: 04/08/2025 SPEC #: [id number] RECD: 04/08/25 14:55 STATUS: ALYSSA REKarla #: [id number] CAITLYN: 04/08/25 14:[address]: Oswald Rodríguez DEPT: SURGICAL PATHOLOGY RECD BY: Edison Girard ENTERED: 04/08/25 16:06 SP TYPE: BREAST BX OTHR DR: No Primary Care Phys Tissues: A - Left breast, NOS Procedures: Immunohistochemical Stains Surgery Specimen Level IV IHC Stain ADDITIONAL HEADER OPERATION: Ultrasound guided left breast core biopsy PRE-OP DIAGNOSIS: Abnormal mammogram, left TISSUE SUBMITTED: A- Left breast, 8-9o'clock, 5 cm from nipple Ischemic Time: <1 minute Fixation Time: 29 hours, 10 minutes MICROSCOPIC DIAGNOSIS A. Breast, left, abnormal mammo, 8-9 o'clock, 5 CMFN, ultrasound-guided core biopsy: - Invasive ductal carcinoma, Grade 2 (tubule 3, nuclear 2, mitosis 1), at least 0.5 cm. - Extensive ductal carcinoma in situ (DCIS), intermediate nuclear grade, cribriform pattern with focal comedonecrosis. - ER: positive (100%, strong intensity). - KS: positive (5%, strong intensity) - [id number]: PENDING to be reported in an addendum. - Ki67q: 10% Note: Ecadherin, CK5/6, and p40 support the histologic impression. CD31 is negative for lymphovascular invasion. MICROSCOPIC DESCRIPTION Slides are reviewed All matched controls reacted appropriately. These tests were developed and their performance characteristics determined by [facility]. They may not have been cleared or approved by the [place]. Food and Drug Administration. The FDA has determined that such clearance or approval is not necessary.? The above immunohistochemical/dualISH?markers are reviewed by the Pathologist.. GROSS DESCRIPTION A. Received in formalin labeled with the patient's name and date of . Designated as LT breast is a 2.5 x 1.0 x 0.1 cm aggregate of kolb-yellow tissue core fragments and clotted blood. Entirely submitted in 2 cassettes. Cold ischemic time: <1 minuteFormalin fixation time: 29 hours, 10 minutes NC 04/08/2025 CPT:[id number] ADDENDUM ADDENDUM ADDENDUM ADDENDUM ADDENDUM ADDENDUM ADDENDUM ADDENDUM ADDENDUM ADDENDUM ADDENDUM ADDENDUM ADDENDUM ADDENDUM ADDENDUM ADDENDUM 04/18/2025 11:10 ADDENDUM 04/18/2025 11:10 ADDENDUM 04/18/2025 11:10 ADDENDUM 04/18/2025 11:10 ADDENDUM 04/25/2025 11:18 ADDENDUM 06/11/2025 09:39 ADDENDUM 04/18/2025 11:10 This addendum is to report the result of the YHA2OWQ performed at [facility]: [id number]: equivocal (2+) [id number]: pending, to be reported in a subsequent addendum. All controls show appropriate reactivity. (HER2) All immunohistochemistry, in situ hybridization, and histochemical tests were developed by and are performed at the [facility], [address] [address], [place] [id number]. All Immunofluorescent (IF)?tests were developed by and are performed at the [facility], [address], [place], [place] ?[address]. All tests reported here, except those addressing HER2 overexpression as a predictive marker, have not been cleared by or approved by the [place] Food and Drug Administration (FDA). The laboratory is regulated under CLIA as qualified to perform high-complexity testing. The tests are used for clinical purposes. They should not be regarded as investigational or for research. This addendum is added to incorporate an outside pathology consultation report. The case was examined at [facility] by Dr. Monsivais (#[id number]) and the following diagnosis was rendered. A. Breast, left, abnormal mammo- 8-9o'clock, 5cmfn, ultrasound-guided core biopsy: HER2/FISH: Negative HER2 SCORE REPORT - A1: HER2 SCORE: Negative HER2 / CEP17 RATIO: 1.2 HER2 COPY NUMBER / CELL: 3.5 Please see complete above mentioned consultation report in EMR ONCOTYPE DX BREAST RECURRENCE SCORE REPORT - BLOCK A2 Recurrence Score Result: 12 Distant Recurrence Risk at 5 Years: 3% Group Average Absolute Chemotherapy Benefit: No apparent chemotherapy benefit (<1%) Please see complete above mentioned consultation report in EMR
--- NOTE | 2025-04-08 14:34 | OP.PCM_ITS ---
Problems Associated Problem List Diagnoses (1) Left breast mass: Procedures Integumentary 16xxx-193xx: [id number] Bx breast 1st lesion us imag Operative Report (Standard) Operative Information Date of Procedure: 04/08/25 Pre-Operative Diagnosis: Abnormal left breast mammogram and ultrasound Post-Operative Diagnosis: Same Surgery/Procedure Performed: Left breast ultrasound-guided mammotome biopsy x 1 site grocery clerk marking: No Type of Anesthesia: Local Procedure Start Time: 14:15 Procedure Stop Time: 14:30 Select all DRAINS/GRAFTS/IMPLANTS that apply: Implanted device Implanted device details: Marking clip placed at site of biopsy under ultrasound guidance Estimated Blood Loss: 5 mL Specimen collected: Yes Description of specimen(s) removed: Left breast tissue Description of surgery: The patient is a 54-year-old female who recently underwent recent mammogram and ultrasound showing an abnormality in the left breast. Ultrasound-guided biopsy was recommended and scheduled. She was brought to the procedure room today following informed consent. The lesion in question was identified by the director technical. Next the left breast was then prepped and draped in the usual sterile manner. Local anesthetic was infiltrated just deep to the lesion. A #11 blade was then used to make a small skin incision. Mammotome biopsy device was then inserted under ultrasound guidance and was placed just deep to the lesion. Once in sufficient position multiple suction biopsies were obtained with good tissue sampling. At the completion of the biopsy process, a marking clip was then deployed also under ultrasound guidance. Manual pressure was held on the area as a small hematoma did quickly develop. Steri-Strips and a dressing were then applied. She tolerated the procedure well. I will contact her with the results once they become available. Surgical Findings: See procedure note Complications Complications: No Admit VTE Documentation VTE Present on Admission: No VTE Mechan Device Prophylaxis: None VTE Pharm Prophylaxis ordered?: No Reason prophylaxis not ordered: Treatment Not Indicated
--- NOTE | 2025-04-08 14:34 | OP.PCM_ITS ---
Problems Associated Problem List Diagnoses (1) Left breast mass: Procedures Integumentary 16xxx-193xx: 70557 Bx breast 1st lesion us imag Operative Report (Standard) Operative Information Date of Procedure: 04/08/25 Pre-Operative Diagnosis: Abnormal left breast mammogram and ultrasound Post-Operative Diagnosis: Same Surgery/Procedure Performed: Left breast ultrasound-guided mammotome biopsy x 1 site textile examiner: No Type of Anesthesia: Local Procedure Start Time: 14:15 Procedure Stop Time: 14:30 Select all DRAINS/GRAFTS/IMPLANTS that apply: Implanted device Implanted device details: Marking clip placed at site of biopsy under ultrasound guidance Estimated Blood Loss: 5 mL Specimen collected: Yes Description of specimen(s) removed: Left breast tissue Description of surgery: The patient is a 54-year-old female who recently underwent recent mammogram and ultrasound showing an abnormality in the left breast. Ultrasound-guided biopsy was recommended and scheduled. She was brought to the procedure room today following informed consent. The lesion in question was identified by the network operations center technician. Next the left breast was then prepped and draped in the usual sterile manner. Local anesthetic was infiltrated just deep to the lesion. A #11 blade was then used to make a small skin incision. Mammotome biopsy device was then inserted under ultrasound guidance and was placed just deep to the lesion. Once in sufficient position multiple suction biopsies were obtained with good tissue sampling. At the completion of the biopsy process, a marking clip was then deployed also under ultrasound guidance. Manual pressure was held on the area as a small hematoma did quickly develop. Steri-Strips and a dressing were then applied. She tolerated the procedure well. I will contact her with the results once they become available. Surgical Findings: See procedure note Complications Complications: No Admit VTE Documentation VTE Present on Admission: No VTE Mechan Device Prophylaxis: None VTE Pharm Prophylaxis ordered?: No Reason prophylaxis not ordered: Treatment Not Indicated
== END 2025-04-08 23:59 | disposition home or self-care (01) ==
PROVIDERS: Referring Provider Surgery; Visit Provider Surgery
DX: C50.312 Malignant neoplasm of lower-inner quadrant of left female breast (principal); R92.8 Other abnormal and inconclusive findings on diagnostic imaging of breast
CPT/HCPCS: 19083; 77065; 88305; 88341; 88342

== ENCOUNTER 2025-05-08 05:34 | Day surgery (SDC) | payer BC, SELFPAY ==
[2025-05-08] VITALS (12 sets, daily range): BP systolic 122–151; BP diastolic 71–96; PULSE 73–94; RESP 14–18; TEMP 36.1–36.7; O2SAT 10–100; BMI 31.8
--- OUTSIDE RECORDS SUMMARY | 2025-05-08 05:38 | XMS RPT_ITS | CCD ---
Author Organization [facility] Care Team Providers Care Rn Oncology Research Name Role Phone Toney Agrawal Unavailable Unavailable Toney Agrawal Unavailable Unavailable No Doctor Assigned, Nodr Unavailable Unavail able Josiah Ramiro K Unavailable Unavailable Josiah, Ramiro K Unavailable Unavailable No Doctor Assigned, Nodr Unavailable Unavail able Toney Agrawal Unavailable Unavailable NewToney tellez Unavailable Unavailable No Doctor Assigned, Nodr Unavailable Unavail able Darya Dumas Unavailable Unavailable Darya Dumas Unavailable Unavailable No Doctor Assigned, Nodr Unavailable Unavail able Rodrigo FER-Cash COOK Primary Care Provider Rodrigo, Mrs. Cash Beardenn Referring Unavailabl e [place], Mrs. Cash Beardenn Primary Care Unavailabl e [place], Mrs. Cash Beardenn Attending Unavailabl e Rodrigo, Mrs. Cash Beardenn Referring Unavailabl e [place], Mrs. Cash Beardenn Primary Care Unavailabl e [place], Mrs. Cash Beardenn Attending Unavailabl e No, Physician Primary Care Provider Unavailabl e NO, PHYSICIAN Primary Care Unavailable ORVILLE CID Attending Unavailable RIKKI CHAVEZ Attending Unavailable ANALISA WINSTON Admitting Unavailab le NO, PHYSICIAN Primary Care Unavailable ANALISA WINSTON Referring Unavailab le RIKKI CHAVEZ Attending Unavailable ANALISA WINSTON Admitting Unavailab ANALISA Villatoro Referring Unavailab le NO, PHYSICIAN Primary Care Unavailable ANALISA WINSTON Attending Unavailab ANALISA Villatoro Admitting Unavailab le NO, PHYSICIAN Primary Care Unavailable RIKKI CHAVEZ Attending Unavailable ANALISA WINSTON Admitting Unavailab ANALISA Villatoro Referring Unavailab le NO, PHYSICIAN Primary Care Unavailable ENDER FRANKLIN Attending Unavailable ANALISA WINSTON Admitting Unavailab le CATRACHITO, ANALISA DARNELL Referring Unavailab le NO, PHYSICIAN Primary Care Unavailable ANALISA WINSTON Referring Unavailab le ASHLEY JACOME Attending Unavailable ANALISA WINSTON Admitting Unavailab le NO, PHYSICIAN Primary Care Unavailable JIGNESH, RIKKI Attending Unavailable CATRACHITO, ANALISA PATRICK Admitting Unavailab le NO, PHYSICIAN Primary Care Unavailable CATRACHITO, ANALISA PATRICK Referring Unavailab le JIGNESH, RIKKI Attending Unavailable ANALISA WINSTON Admitting Unavailab le NO, PHYSICIAN Primary Care Unavailable ANALISA WINSTON Referring Unavailab le JIGNESH, RIKKI Attending Unavailable ANALISA WINSTON Admitting Unavailab le CATRACHITO, ANALISA PATRICK Referring Unavailab le NO, PHYSICIAN Primary Care Unavailable JIGNESH, RIKKI Attending Unavailable ANALISA WINSTON Referring Unavailab le CATRACHITO, ANALISA PATRICK Admitting Unavailab le NO, PHYSICIAN Primary Care Unavailable JIGNESH, RIKKI Attending Unavailable ANALISA WINSTON Admitting Unavailab le CATRACHITO, ANALISA PATRICK Referring Unavailab le NO, PHYSICIAN Primary Care Unavailable JIGNESH, RIKKI Attending Unavailable ANALISA WINSTON Admitting Unavailab le CATRACHITO, ANALISA PATRICK Referring Unavailab le NO, PHYSICIAN Primary Care Unavailable JIGNESH, RIKKI Attending Unavailable ANALISA WINSTON Admitting Unavailab le CATRACHITO, ANALISA PATRICK Referring Unavailab le NO, PHYSICIAN Primary Care Unavailable JIGENSH, RIKKI Attending Unavailable ANALISA WINSTON Admitting Unavailab le CATRACHITO, ANALISA PATRICK Referring Unavailab le NO, PHYSICIAN Primary Care Unavailable JIGNESH, RIKKI Attending Unavailable ANALISA WINSTON Admitting Unavailab le CATRACHITO, ANALISA PATRICK Referring Unavailab le NO, PHYSICIAN Primary Care Unavailable ANALISA WINSTON Referring Unavailab le ASHLEY JACOME Attending Unavailable ANALISA WINSTON Admitting Unavailab le NO, PHYSICIAN Primary Care Unavailable ANALISA WINSTON Referring Unavailab le JIGNESH, RIKKI Attending Unavailable ANALISA WINSTON Admitting Unavailab le NO, PHYSICIAN Primary Care Unavailable NO, PHYSICIAN Primary Care Unavailable LEATHA HI Admitting Unavailable LEATHA HI Referring Unavailable NO, PHYSICIAN Primary Care Unavailable LEATHA HI Attending Unavailable ANALISA WINSTON Referring Unavailab le CATRACHITO, ANALISA PATRICK Admitting [...] ANALISA PATRICK Attending Unavailab le CATRACHITO, ANALISA PATIRCK Referring Unavailab le CATRACHITO, ANALISA PATRICK Admitting Unavailab le NO, PHYSICIAN Primary Care Unavailable NO, PHYSICIAN Primary Care Unavailable CATRACHITO, ANALISA PATRICK Attending Unavailab le Adenike Fonseca DO, Dr. Mera Attending Provider Adenike Fonseca DO, Dr. Mera Referring Provider Care Physician, No Primary Primary Care Provider Unavailable Care Physician, No Primary Referring Provider Un available Anne MOSHER, Dr. Salena Mortensen Attending Provider Anne MOSHER, Dr. Salena Mortensen Referring Provider Anne MOSHER, Dr. Salena Mortensen Other Provider Salena Rodríguez Referring Unavailable Anne, Salena Mortensen Attending Unavailable Care Physician, No Primary Primary Care Unava ilable Care Physician, No Primary Primary Care Unava ilable Wanlaly, Salena Mortensen Attending Unavailable Wanlaly, Salena Mortensen Referring Unavailable Wanek, Salena Mortensen Attending Unavailable Care Physician, No Primary Primary Care Unava ilable Wanek, Salena Mortensen Referring Unavailable Care Physician, No Primary Primary Care Unava ilable Wanek, Salena Mortensen Consulting Unavailable Wanlaly, Salena Mortensen Attending Unavailable Care Physician, No Primary Primary Care Unava ilable Wanek, Salena Mortensen Attending Unavailable Care Physician, No Primary Referring Unava ilable Samaria Correa Attending Unavailabl e Care Physician, No Primary Primary Care Unava ilable Care Physician, No Primary Referring Unava ilable Salena Rodríguez Attending Unavailable Samaria Correa Attending Unavailabl e Samaria Correa Referring Unavailabl e Care Physician, No Primary Primary Care Unava ilable Wanek, Salena Mortensen Referring Unavailable Care Physician, No Primary Primary Care Unava ilable Wanlaly, Salena Mortensen Attending Unavailable Medications Current Medications Medication Drug Class(es) Dates [...] 20 tablet 09/06/2024 09/11/2024 Active AquaSculpt capsule (5 sources) Start: 03-29-2025 AquaSculpt capsule Active PO March [...] whom no diagnosis is made] 04-14-2023 Episodic Cancer of breast (2 sources) Malignant neoplasm of unspecified site of left female breast; Translations: [Infiltrating ductal carcinoma of left breast] Onset: 05-03-2025 04-19-2025 Chronic Endometriosis (20 sources) Endometriosis (clinical); Translations: [Endometriosis, unspecified] Onset: 11-05-2005 04-14-2023 Chronic Fracture of upper limb (20 sources) Closed Colles' fracture; Translations: [Colles' fracture of left radius, initial encounter for closed fracture] Onset: 09-06-2024 09-10-2024 Episodic Nonmalignant breast conditions (5 sources) Breast lump; Translations: [Unspecified lump in the left breast, unspecified quadrant] Onset: 05-03-2025 04-08-2025 Episodic Other aftercare (2 sources) Encounter for [...] conditions (not mental disorders or infectious disease) (12 sources) Mammography abnormal; Translations: [Other abnormal and inconclusive findings on diagnostic imaging of breast] Onset: 04-01-2025 03-29-2025 Episodic Other skin disorders (6 sources) Nodule of skin of abdomen; Translations: [...] Test Name Value Interpretation Reference Range Facility SURG PATH REQUESTon 04-19-20 Case Report [facility] Comment on above: Result Comment: Surg ical Pathology Report Case: [id number] Authorizing Provider: Marizol Fraser MD Collected: 04/19/2025 11:11 AM Ordering Location[facility] Received: 04/19/2025 11:05 AM [place] Pathologist: Ryder Monsivais MD, PhD Specimen: SURG PATH, Outside block [id number] (A2); Breast, left, abnormal mammo, 8-9 o'clock, 5 CMFN, ultrasound-guided core biopsy; Molecular testing Performed By: #### S URGP #### [facility] (DEFAULT) [address] [place] [address] Clinical History eceived is a request from Marizol Fraser MD at [facility] for molecular testing on a paraffin block received from [facility]. Pre-Op Diagnosis: Abnormal mammogram, left. [facility] Comment on above: Performed By: #### S URGP #### [facility] (DEFAULT) [address] [place] [address] Gross Description [facility] Comment on above: Result Comment: The following material(s) are received from [facility], [address] [place] [address] with an identifying Surgical Pathology Report: 1 paraffin block marked [id number] (A2), which is submitted to the [facility] histology/IHC laboratory for recutting and additional staining for molecular testing: HER2, FISH. Materials will be returned upon completion. Grosser for this case was: Anais Pat Performed By: #### S URGP #### [facility] (DEFAULT) [address] [place] [address] Microscopic Description Tissue was asses sed by a molecular pathologist to select areas for analysis and to correlate immunostaining with histology. No morphologic assessment was requested. [facility] Comment on above: Performed By: #### S URGP #### [facility] (DEFAULT) [address] [place] [address] Pathologic Diagnosis Normal [facility] Comment on above: Result Comment: Outs tyler Slides: [id number] (04/08/25) A. Breast, left, abnormal mammo, 8-9 o'clock, 5 CMFN, ultrasound-guided core biopsy: HER2/FISH: Negative (See FISH results separately reported) at 2310 EDT Performed By: #### S URGP #### [facility] (DEFAULT) [address] [address] Professional Interpretation Performed at: Normal [facility] Comment on above: Result Comment: [facility] For Immediate Release to Patient's [facility]? Yes [address] [facility] [address] [place], [place] [address] Performed By: #### S URGP #### [facility] (DEFAULT) [address] [place] [address] Surgery Visit Reporton 04-19 Surgery Visit Report [facility] [address] [place] [address]. [address] [place] [address] OFFICE VISIT Date of Service: 04/19/25 MR#: [id number] Acct: [id number] Name: GALINA SERRA Rep #: [id number] : 1970 Provider: Dr. Salena ruffin MD Age/Sex: 54/F Location: [facility] Status: Signed Intake Vital Signs 03/29/25 09:58 Height 5 ft 4 in Intake Visit Reasons: S/P BREAST BIOPSY Chief Complaint: s/p breast biopsy Is patient in pain?: No Allergies No Known Allergies Allergy (Verified 04/19/25 08:17) Medications ???Medication ???Instructions ???Recorded ???Confirmed ???Type AquaSculpt PO 03/29/25 04/19/25 History PFSH Medical History (Updated 04/19/25 @ 08:17 by Valencia Cunningham) Left breast mass Abnormal mammogram Surgical History H/O excision of [...] The patient is a 54-year-old female who was recently diagnosed with infiltrating ductal carcinoma following a ultrasound-guided mammotome biopsy for 7 x 4 cm abnormality seen in the left breast. I called the patient several days ago with pathology results and had a brief discussion as far as her surgical options. We had a much longer lengthy discussion regarding her surgical options of lumpectomy with radiation versus mastectomy. She denied any issues or problems following the biopsy. Again patient has no family history of breast cancer or ovarian cancer or other cancers whatsoever ROS General General: Yes breast cancer; No weight change, appetite, fatigue, colon cancer or weakness HEENT HEENT: No difficulty [...] tingling and No weakness Exam Const General: cooperative, healthy appearing and comfortable Assessment and Plan Assessment and Plan (1) Invasive ductal carcinoma of left breast: Status: Acute Plan: The patient is a 54-year-old female with a newly discovered left breast cancer. This is fairly small measuring 7 mm or less. We do lengthy discussion today along with her family regarding surgical options of lumpectomy with radiation versus mastectomy. We also discussed option of bilateral mastectomy. We also discussed the option of reconstruction and the fact that reconstruction is covered by insurance under the diagnosis of breast cancer. We also discussed the role of sentinel lymph node biopsy. We also discussed the overall timeline should chemotherapy and radiation therapy be needed as well. At the end of our conversation, patient felt very well- informed. She freely admits that she is not ready to make a decision as far as surgery at this point. She would like some time to discuss this further. I encouraged her to contact my office with any questions and certainly when she comes to a decision is for surgery. I also offered the option of scheduling another appointment sometime next week to discuss this further and answer any further questions. She is agreeable to this plan. Coding Level of Care Code Off vis,est,level 4 Diagnoses Invasive ductal carcinoma of left breast C50.912 04/19/25 1459 Date Salena Rodríguez MD [facility] (more content not included)... Normal [facility] Breast imaging reportOrdered By: Charlotte Lane on 04-08-2025 Study report [facility] [address] [place] [address] DIAG MAMM W/CAD, UNILAT MR#: [id number] Acct: [id number] Name: GALINA SERRA Rep #: [id number] : 1970 F 54 From: Rolando Lane DO PCP: Care Physician,No Primary Status: REG CLI Study:DIAG MAMM W/CAD, UNILAT Date of Exam: 04/08/25 Exam# [id number] Ordering Dr: St maryanne Rodríguez MD EXAM: DIAG MAMM W/CAD, UNILAT 04/08/2025 CLINICAL HISTORY: F, Age 54 y/o , ABN MAMM. Mass. Masses biopsied under ultrasound guidance. Document clip placement in relationship to biopsy site. TECHNIQUE: DIAG MAMM W/CAD, UNILAT. COMPARISON: Prior exam(s) dated 03/26/2025 and 03/09/2024. FINDINGS: TISSUE DENSITY: There are scattered areas of fibroglandular density. Bilateral Breast Mammographic Findings: A radiopaque clip is seen in the medial aspect of the left breast. Air and numbing medicine are seen along the biopsy track. There is a 5 mm partially obscured isodense mass at this location. BI/DIAG MAMM W/CAD, UNILAT IMPRESSION: Successful biopsy of the left breast mass. A radiopaque clip is now seen at this location. Pathology is pending. OVERALL FINAL ASSESSMENT BI-RADS 4: SUSPICIOUS. The suspicious mass has been biopsied. A radiopaque clip is now present. Pathology is pending. A letter with findings and recommendations will be mailed to the patient. Reading Location: [id number] CC: Dr. Salena Rodríguez MD; No Primary Care Physician ~ Optical Worker: Signed [facility] DIAG MAMM W/CAD, UNILATon DIAG MAMM W/CAD, UNILAT [facility] [address] [place] [id number] DIAG MAMM W/CAD, UNILAT MR#: [id number] Acct: [id number] Name: EVELYNGALINA MUNIZ Rep #: [id number] : 1970 F 54 From: Charlotte Monzon PCP: Care Physician,No Primary Status: [facility] Study: DIAG MAMM W/CAD, UNILAT Date of Exam: 04/08/25 Exam# [id number] Ordering Dr: Salena Rodríguez MD EXAM: DIAG MAMM W/CAD, UNILAT 04/08/2025 CLINICAL HISTORY: F, Age 54 y/o , ABN MAMM. Mass. Masses biopsied under ultrasound guidance. Document clip placement in relationship to biopsy site. TECHNIQUE: DIAG MAMM W/CAD, UNILAT. COMPARISON: Prior exam(s) dated 03/26/2025 and 03/09/2024. FINDINGS: TISSUE DENSITY: There are scattered areas of fibroglandular density. Bilateral Breast Mammographic Findings: A radiopaque clip is seen in the medial aspect of the left breast. Air and numbing medicine are seen along the biopsy track. There is a 5 mm partially obscured isodense mass at this location. BI/DIAG MAMM W/CAD, UNILAT IMPRESSION: Successful biopsy of the left breast mass. A radiopaque clip is now seen at this location. Pathology is pending. OVERALL FINAL ASSESSMENT BI-RADS 4: SUSPICIOUS. The suspicious mass has been biopsied. A radiopaque clip is now present. Pathology is pending. A letter with findings and recommendations will be mailed to the patient. Reading Location: [id number] CC: Dr. Salena Rodríguez MD; No Primary Care Physician Optical Worker: Signed Normal [facility] Immunohistochemical Stainson 04-08-2025 Immunohistochemical Stains ---- Patient Age/Sex Location Account Attending Physician ---- GALINA SERRA 54/F [place] [id number] Dr. Salena Rodríguez MD ---- Specimen: [id number] Received: 04/08/25 Status: ALYSSA Castillo Num: [id number] Spec Type: BREAST BX Subm Dr: Dr. Salena Rodríguez MD HEADER OPERATION: Ultrasound guided left breast core biopsy PRE-OP DIAGNOSIS: Abnormal mammogram, left TISSUE SUBMITTED: A- Left breast, 8-9o'clock, 5 cm from nipple Ischemic Time: <1 minute Fixation Time: 29 hours, 10 minutes ---- MICROSCOPIC DIAGNOSIS A. Breast, left, abnormal mammo, 8-9 o'clock, 5 CMFN, ultrasound-guided core biopsy: - Invasive ductal carcinoma, Grade 2 (tubule 3, nuclear 2, mitosis 1), at least 0.5 cm. - Extensive ductal carcinoma in situ (DCIS), intermediate nuclear grade, cribriform pattern with focal comedonecrosis. - ER: positive (100%, strong intensity). - CO: positive (5%, strong intensity) - WYD9CDA: PENDING to be reported in an addendum. - Ki67q: 10% Note: Ecadherin, CK5/6, and p40 support the histologic impression. CD31 is negative for lymphovascular invasion. MICROSCOPIC DESCRIPTION Slides are reviewed All matched controls reacted appropriately. These tests were developed and their performance characteristics determined by [facility]. They may not have been cleared or approved by the U.S. Food and Drug Administration. The FDA has determined that such clearance or approval is not necessary.??? The above immunohistochemical/du alISH???markers are reviewed by the Pathologist.. GROSS DESCRIPTION A. Received in formalin labeled with the patient's name and date of . Designated as LT breast is a 2.5 x 1.0 x 0.1 cm aggregate of kolb-yellow tissue core fragments and clotted blood. Entirely submitted in 2 cassettes. Cold ischemic time: <1 minuteFormalin fixation time: 29 hours, 10 minutes VT 04/08/2025 CPT:10658,42265,[id number] [id number] ---- ---- Patient Age/Sex Location Account Attending Physician ---- GALINA SERRA 54/F [place] [id number] Dr. Salena Rodríguez MD ---- ADDENDUM Addendum 2 Entered: 04/25/25-1981 This addendum is added to incorporate an outside pathology consultation report. The case was examined at [facility] by Dr. Monsivais (#[id number]) and the following diagnosis was rendered. A. Breast, left, abnormal mammo- 8-9o'clock, 5cmfn, ultrasound-guided core biopsy: HER2/FISH: Negative HER2 SCORE REPORT - A1: HER2 SCORE: Negative HER2 / CEP17 RATIO: 1.2 HER2 COPY NUMBER / CELL: 3.5 Please see complete above mentioned consultation report in EMR Addendum Signed (signature on file) Dr. Marizol Fraser MD 04/25/25 2495 ---- Addendum 1 Entered: 04/18/25 This addendum is to report the result of the UQG2VQF performed at [facility]: [id number]: equivocal (2+) [id number]: pending, to be reported in a subsequent addendum. All controls show appropriate reactivity. (HER2) All immunohistochemistry, in situ hybridization, and histochemical tests were developed by and are performed at the [facility], [address] [place] [address]. All Immunofluorescent (IF)???tests were developed by and are performed at the [facility], [address] [place] [address] ???[id number]. All tests reported here, except those addressing HER2 overexpression as a predictive marker, have not been cleared by or approved by the US Food and Drug Administration (FDA). The laboratory is regulated under CLIA as qualified to perform high-complexity testing. The tests are used for clinical purposes. They should not be regarded as investigational or for research. Addendum Signed (signature on file) Dr. Marizol Fraser MD 04/18/25 1862 ---- ---- Patient Age/Sex Location Account Attending Physician (more content not included)... Normal [facility] Comment on above: Performed By: #### P IMHI #### [facility] [address] [facility] [place], [address] Operative Reporton 5 Operative Report [facility] Medical Records Department [address] [place] [address] Operative Report 04/08/25 1434 MR#: [id number] Acct: [id number] Name: EVELYNGALINA FLAVIO Rep #: [id number] : 1970 54 From: Salena Rodríguez MD PCP: Care Physician,No Primary Status:REG CLI Location: OPUS Problems Associated Problem List Diagnoses (1) Left breast mass: Procedures Integumentary 16xxx-193xx: 62519 Bx breast 1st lesion us imag Operative Report (Standard) Operative Information Date of Procedure: 04/08/25 Pre-Operative Diagnosis: Abnormal left breast mammogram and ultrasound Post-Operative Diagnosis: Same Surgery/Procedure Performed: Left breast ultrasound-guided mammotome biopsy x 1 site security threat analyst: No Type of Anesthesia: Local Procedure Start Time: 14:15 Procedure Stop Time: 14:30 Select all DRAINS/GRAFTS/IMPLANTS that apply: Implanted device Implanted device details: Marking clip placed at site of biopsy under ultrasound guidance Estimated Blood Loss: 5 mL Specimen collected: Yes Description of specimen(s) removed: Left breast tissue Description of surgery: The patient is a 54-year-old female who recently underwent recent mammogram and ultrasound showing an abnormality in the left breast. Ultrasound-guided biopsy was recommended and scheduled. She was brought to the procedure room today following informed consent. The lesion in question was identified by the biofuels production technician. Next the left breast was then prepped and draped in the usual sterile manner. Local anesthetic was infiltrated just deep to the lesion. A #11 blade was then used to make a small skin incision. Mammotome biopsy device was then inserted under ultrasound guidance and was placed just deep to the lesion. Once in sufficient position multiple suction biopsies were obtained with good tissue sampling. At the completion of the biopsy process, a marking clip was then deployed also under ultrasound guidance. Manual pressure was held on the area as a small hematoma did quickly develop. Steri-Strips and a dressing were then applied. She tolerated the procedure well. I will contact her with the results once they become available. Surgical Findings: See procedure note Complications Complications: No Admit VTE Documentation VTE Present on Admission: No VTE Mechan Device Prophylaxis: None VTE Pharm Prophylaxis ordered?: No Reason prophylaxis not ordered: Treatment Not Indicated 04/08/25 4749 Cosigner Signature (if applicable): CC: Dr. Salena Rodríguez MD; No Primary Care Physician Signed Normal [facility] US Breast Biopsy 1st Lesiono n 04-08-2025 US Breast Biopsy 1st Lesion [facility] Services [address] [place] [address] US Breast Biopsy 1st Lesion MR#: [id number] Acct: [id number] Name: GALINA SERRA Rep #: [id number] : 1970 F 54 From: Lui kent MD PCP: Care Physician,No Primary Status: DEP CLI Study: US Breast Biopsy 1st Lesion Date of Exam: 03/20 10/13 Exam# [id number] Ordering Dr: Salena Rodríguez MD PROCEDURE: US BREAST BIOPSY 1ST LESION 04/08/2025 REASON FOR EXAM: F, Age 54 y/o , LEFT BREAST MASS TECHNIQUE: US BREAST BIOPSY 1ST LESION COMPARISON: Prior exam(s) dating back to April 08, 2025.. FINDINGS: Under direct sonographic guidance, the surgeon performed core biopsies of the indistinct nodule at the 8 to 9 o'clock position of the breast at 5 cm from the nipple. US/US Breast Biopsy 1st Lesion IMPRESSION: OVERALL FINAL ASSESSMENT: BIRADS 11 WAITING PATHOLOGY RECOMMENDATION: Waiting on pathology results. Reading Location: [id number] CC: Dr. Salena Rodríguez MD; No Primary Care Physician Optical Worker: Signed Normal [facility] Breast Limited Unilateralon 04-01-2025 Breast Limited Unilateral [facility] Services [address] [place] [address] [id number] Breast Limited Unilateral MR#: [id number] Acct: [id number] Name: GALINA SERRA Rep #: [id number] : 1970 F 54 From: Lui kent MD PCP: Care Physician,No Primary Status: REG CLI Study: Breast Limited Unilateral Date of Exam: Exam# [id number] Ordering Dr: Salena Rodríguez MD PROCEDURE: BREAST LIMITED UNILATERAL 04/01/2025 REASON FOR EXAM: F, Age 54 y/o , ABNORMAL MAMMOGRAM OF LEFT BREAST COMPARISON: Prior mammogram dated March 26, 2025.. TECHNIQUE: BREAST LIMITED UNILATERAL FINDINGS: The lower inner quadrant of the left breast was examined with ultrasound. The mammographic abnormality corresponds to a 7 mm x 4 mm x 6 mm hypoechoic irregular density with posterior shadowing at the 9 o'clock position of the breast at 5 cm from the nipple. Biopsy recommended. US/Breast Limited Unilateral IMPRESSION: The mammographic abnormality corresponds to a 7 mm x 4 mm x 6 mm ill-defined hypoechoic nodular density at the 9 o'clock position of the breast at 5 cm from the nipple. There is evidence of posterior acoustical shadowing. Biopsy recommended. BI-RADS 4: SUSPICIOUS ABNORMALITY. RECOMMENDATION: Biopsy Recommended Reading Location: [place] [address] CC: Dr. Saelna Rodríguez MD; No Primary Care Physician Optical Worker: Signed Normal [facility] Surgery Visit Reporton 03-29 Surgery Visit Report [facility] [address] [place] [address] OFFICE VISIT Date of Service: 03/29/25 MR#: [id number] Acct: [id number] Name: GALINA SERRA Rep #: [id number] : 1970 Provider: Dr. Salena ruffin MD Age/Sex: 54/F Location: [facility] Status: Signed Intake Vital Signs 03/05/25 11:16 [...] weakness Exam Const General: cooperative and comfortable [facility] Head: normal to inspection Eyes General: appearance [...] (if applicable) (more content not included)... Normal [facility] Breast imaging reportOrdered By: Lui Medrano on 03-26-2025 Study report [facility] Imaging Services [address] [place] [address] [id number] SCRN MAMM (CAD)W/MELLISSA BILAT MR#: [id number] Acct: [id number] Name: GALINA SERRA Rep #: [id number] : 1970 F 54 From: Chase Medrano MD PCP: Care Physician,No Primary Status: [facility] Study:SCRN MAMM (CAD)W/MELLISSA BILAT Date of Exa m: 03/26/25 Exam# [id number] Ordering Dr: Samaria Wen DO ADDENDUM by Dr. Lui Medrano MD on 03/26/25 at 1102 This is an addendum report. There is evidence of focal architectural distortion in the deep medial inferior aspect of the left breast. Biopsy recommended. BI-RADS category 4. Reading Location: [facility] 03/26/25 1103 Date cc: Dr. Samaria Correa DO; No Primary Care Physician ~* Signed EXAM: SCRN MAMM (CAD)W/MELLISSA BILAT DATE: [...] be mailed to the patient. Reading Location: [place] [address] CC: Dr. Samaria Correa DO; No Primary Care Physician ~ Optical Worker: Signed [facility] SCRN MAMM (CAD)W/MELLISSA BILATo n 03-26-2025 SCRN MAMM (CAD)W/MELLISSA BILAT [facility] Services [address] [place] [id number] SCRN MAMM (CAD)W/MELLISSA BILAT MR#: [id number] Acct: [id number] Name: GALINA SERRA Rep #: [id number] : 1970 F 54 From: Lui kent MD PCP: Care Physician,No Primary Status: REG CLI Study: SCRN MAMM (CAD)W/MELLISSA BILAT Date of Exam: 05/13 Exam# [id number] Ordering Dr: Samaria Correa DO ADDENDUM by Dr. Lui Medrano MD on 03/26/25 at 1102 This is an addendum report. There is evidence of focal architectural distortion in the deep medial inferior aspect of the left breast. Biopsy recommended. BI-RADS category 4. Reading Location: [facility] 03/26/25 1103 Date cc: Dr. Samaria [...] be mailed to the patient. Reading Location: [facility] CC: Dr. Samaria Correa DO; No Primary Care Physician Optical Worker: Signed Normal [facility] Foundation Relations Manager Office Visit Reporton 03-05-2025 Foundation Relations Manager Office Visit Report [facility] [address], [address] [place] [address] OFFICE VISIT Date of Service: 03/05/25 MR#: [id number] Acct: [id number] Name: GALINA SERRA Rep #: [id number] : 1970 Provider: Dr. 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 Normal [facility] XR WRIST LEFT 2 VIEWSon XR WRIST [...] post ORIF. Similar appearance ulnar styloid fracture. RIZWANM/uyen Workstation ID: [id number] Dictated by: SALENA LO on TueNov 23, 2024 4:08:58 PM EST Transcribed by: SUSAN GILMORE on TueNov 23, 2024 4:19:24 PM EST Finalized by: SALENA LO on TueNov 23, 2024 4:21:05 PM EST Normal [facility] Comment on above: Order Comment: Injur y/Trauma or Illness?:Injury/Trauma How long have you had [...] on TueOct 30, 2024 11:33:[address] [facility] Comment on above: Order Comment: Injur y/Trauma or Illness?:Injury/Trauma How long have you had [...] ID: [id number] Dictated by: BENITA BLOOD on [facility] Sep 29, 2024 10:51:31 AM EST Transcribed by: BENITA BLOOD on [facility] Sep 29, 2024 10:51:31 AM EST Finalized by: BENITA BLOOD on [facility] Sep 29, 2024 10:51:31 AM EST [facility] Comment on above: Order Comment: Injur y/Trauma or Illness?:Injury/Trauma How long have you had these symptoms (acute/chronic)?:Acute Reason for exam?:p/o left wrist ORIF 09/11/24 History of cancer?:no Surgeries, chemotherapy, or radiation?:none Type of Exam?:Subsequent/Follow-up Mechanism of injury?:fall down basement steps OP NOTEon 09-11-2024 OP NOTE ATTENDING PHYSICIAN ANALISA WINSTON MD PRIMARY CARE PHYSICIAN PHYSICIAN NO ADMITTING PHYSICIAN ANALISA WINSTON MD PREOPERATIVE DIAGNOSE Intra-articular displaced comminuted left [...] PACU without intraoperative complication. D 09/11/2024 17:22 [id number] T 09/11/2024 17:46 MCB/MODL AUTHENTICATED BY ANALISA WINSTON, ON 09/11/2024 18:06:59 [facility] XR OR WRIST LEFT 2 VIEWSon [...] [id number] Dictated by: MARY ELLEN RENTERIA on [facility] Sep 13, 2024 9:30:34 AM EST Transcribed by: MARY ELLEN RENTERIA on [facility] Sep 13, 2024 9:30:34 AM EST Finalized by: MARY ELLEN RENTERIA on [facility] Sep 13, 2024 9:30:34 AM EST [facility] Comment on above: Order Comment: Injur y/Trauma or Illness?:Injury/Trauma How long have you had these symptoms (acute/chronic)?:Acute Reason for exam?:ORIF Type of Exam?:Subsequent/Follow-up Mechanism of injury?:FALL Fluoro time in minutes:0.35 Fluoro dose in mGy?:0.37 XR WRIST LEFT 3+ VIEWS (FERNANDO DARD)on 09-10-2024 XR WRIST LEFT 3+ VIEWS (STANDARD) [...] TueSep 11, 2024 12:02:31 PM EST Normal [facility] Comment on above: Order Comment: Injur y/Trauma or Illness?:Injury/Trauma How long have you had [...] all other systems reviewed and are negative. - PAST HISTORY - Past Medical History: @[facility] Past Surgical History: has a past surgical history that includes Section. Social History: reports that she has never smoked. She has never used smokeless tobacco. She reports that she does not drink alcohol and does not use drugs. Family History: family history is not on file. The patient's home medications have been reviewed. Allergies: Patient has no known allergies. ------ RESULTS ----- All laboratory and radiology results have been personally reviewed by myself LABS: No results found for this or any previous visit. RADIOLOGY: Interpreted by Radiologist. XR Wrist Left 3+ Views (Standard) (Results Pending) --- NURSING NOTES AND VITALS REVIEWED ----- The nursing notes within the ED encounter and vital signs as below have been reviewed. BP (!) 155/88 (BP Location: Left arm, Patient Position: Sitting) Pulse 77 Temp 98.2 degrees F (36.8 degrees C) (Temporal) Resp 18 Ht 5' 4 Wt 84.4 kg (186 lb) SpO2 99% BMI 31.93 kg/m Oxygen Saturation Interpretation: Normal -------PHYSICAL EXAM Constitutional/General : Alert and oriented x3, well appearing, non [...] rash Neurologic: GCS 15, Psych: Normal Affect -------- ED COURSE/MEDICAL DECISION MAKING ------ Medications oxyCODONE-acetaminophe n (PERCOCET) 5-325 mg per tablet 1 tablet [...] and they are agreeable with the plan. IMPRESSION AND DISPOSITION IMPRESSION 1. Closed fracture of left wrist, initial encounter DISPOSITION Disposition: discharged to home Patient condition is stable Summation Patient Course: Improved ED Medications administered this visit: Medications oxyCODONE-acetaminophe n (PERCOCET) 5-325 mg per tablet 1 tablet (has no administration in time range) ketorolac (TORADOL) injection 30 mg (30 mg Intramuscular Given 09/06/242104) New Prescriptions from this visit: New Prescriptions oxyCODONE-acetaminophe n (PERCOCET) 5-325 mg per tablet Take 1 (one) tablet by mouth every 6 (six) hours as needed for pain (Days supply per fill: 5) . ketorolac (TORADOL) 10 mg tablet Take 1 (one) tablet (10 mg total) by mouth 3 (three) times a day as needed for pain . oxyCODONE-acetaminophe n (PERCOCET) 5-325 mg per tablet Take 1 (one) tablet by mouth every 6 (six) hours as needed for pain TAKE HOME PACK . Follow-up: Analisa Winston MD [address] [place] [phone] In 2 days Final Impression: 1. Closed fracture of left wrist, initial encounter (Please note that portions of this note were completed with a voice recognition program. Efforts were made to edit the dictations but occasionally words are mis-transcribed.) Orville Cid MD 09/06/242154 AUTHENTICATED BY [place]LE CID, ON 09/06/2024 21:55:17 [facility] XR WRIST LEFT 3+ VIEWS [...] PM EST Finalized by: RENARD LARSON on TueSep 06, 2024 10:28:14 PM EST [facility] Comment on above: Order Comment: Injur y/Trauma or Illness?:Injury/Trauma How long have you had these symptoms (acute/chronic)?:Acute Reason for exam?:fall, pain to lt wrist History of cancer?:no Surgeries, chemotherapy, or radiation?:none Type of Exam?:Initial Mechanism of injury?:fall CT ABDOMEN AND PELVIS W IV C ONTRASTon 05-09-2023 CT ABDOMEN AND PELVIS W IV CONTRAST Patient Name: GALINA SERRA STUDY: CT ABDOMEN AND PELVIS W IV CONTRAST; 05/09/2023 10:18 am INDICATION: see dx. COMPARISON: Ultrasound dated 04/20/2023 demonstrated a suspected lipoma in the right lower quadrant ACCESSION NUMBER(S): [id number] ORDERING CLINICIAN: CASH SANCHEZ TECHNIQUE: CT of [...] The abdominal and pelvic vessels are unremarkable. PERITONEUM/RETROPERITO NEUM/LYMPH NODES: There is no retroperitoneal or pelvic [...] Electronically signed by: HARESH MARSHALL MD [facility] US ABDOM Ebonie 04-20-2023 US ABDOM MASS Patient Name: EVELYNSAHARAIE STUDY: US ABDOM MASS; Right; 04/20/2023 7:40 am INDICATION: lump RUQ/laterally. COMPARISON: None. 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 We discussed walking some time in her [...] CARE 2008 - COLONOSCOP W/ OR W/O [facility] SPEC 10/07/2015 Repeat 2025 - PAST SURGICAL HISTORY OF Bilateral 1986 bone spurr removal - PAST SURGICAL HISTORY [...] and discussed today Current Outpatient Medications: - oxyCODONE-acetaminophe n (PERCOCET) 5-325 mg tablet Review of Systems [...] clubbing o (more content not included)... Normal [facility] Mamm Screen w/CAD if perf and 3D Bilon 06-26-2018 Bilirubin.direct mass conc Exam Date/Time:06/23/2018 09:02 EDTReason for Exam:SCREENINGReportST UDY:Digital mammography screening with mellissa; 06/23/2018 9:02 amACCESSION NUMBER(S):[id number] CLINICIAN:Darya DumasINDICATION:Maxx bosch.COMPARISON:Jerod rison is made to prior digital mammograms dated05/31/2016 [...] mammographic evidence of malignancy.BI-RADS CATEGORY:Category: 1 - Negative.Recommendatio n: Normal Interval Follow-up, Over Age 40.Recall Interval: 12 Months.Breast Density: Scattered Fibroglandular Density. FINAL REPORT Dictated: 06/26/2018 8:36 am Lisbeth MOSHER, Julius CSigned (Electronic Signature): 06/26/2018 8:36 amSigned by: Julius Bob MD Technologist: DHAssessment: BI-RADS Category 1-NegativeRecommendati on: Normal interval follow-up Normal [facility] Vital Signs Date Time Vital Sign Value Performing Clinician Facility 03-29-2025 09:58-0400 Body height 162.[address] Samaria Correa DO Work Phone: [facility] 03-29-2025 09:58-0400 Body mass index (BMI) [Ratio] 31.3 kg/m2 Dr. Samaria Correa DO Work Phone: [facility] 03-29-2025 09:58-0400 Body temperature 97.2 [degF] Dr. Samaria Correa DO Work Phone: [facility] 03-29-2025 09:58-0400 Body weight 82.[address] Samaria Correa DO Work Phone: [facility] 03-29-2025 09:58-0400 Diastolic blood pressure 89 mm[Hg] Dr. Samaria Correa DO Work Phone: [facility] 03-29-2025 09:58-0400 Heart rate 74 /min Dr. Samaria Correa DO Work Phone: [facility] 03-29-2025 09:58-0400 Respiratory rate 18 /min Dr. Samaria Correa DO Work Phone: [facility] 03-29-2025 09:58-0400 SaO2% (BldA) [Mass fraction] 99 % Dr. Samaria Correa DO Work Phone: [facility] 03-29-2025 09:58-0400 Systolic blood pressure 118 mm[Hg] Dr. Samaria Correa DO Work Phone: [facility] 03-05-2025 11:16-0400 Body height 162.[address] Samaria Correa DO Work Phone: [facility] 03-05-2025 11:16-0400 Body mass index (BMI) [Ratio] 31.2 kg/m2 Dr. Samaria Correa DO Work Phone: [facility] 06-17-2025 11:16-0400 Body weight 82.[address] Samaria Correa DO Work Phone: [facility] 03-05-2025 11:16-0400 Diastolic blood pressure 72 mm[Hg] Dr. Samaria Correa DO Work Phone: [facility] 03-05-2025 11:16-0400 Systolic blood pressure 115 mm[Hg] Dr. Samaria Correa DO Work Phone: [facility] 09-10-2024 14:21-0500 Body height 162.6 cm Leatha Ihclemente COOK Work Phone: [facility] 09-10-2024 14:21-0500 Body mass index (BMI) [Ratio] 31.93 kg/m2 Leatha Hi ATHLETIC AGENT Work Phone: [facility] 09-10-2024 14:21-0500 Body weight 84.37 kg Leatha Hiclemente COOK Work Phone: [facility] 04-14-2023 09:25-0400 Body height 163.2 cm 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 Work Phone: [facility] 04-14-2023 09:25-0400 Body mass index (BMI) [Ratio] 33.14 kg/m2 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 Work Phone: [facility] 04-14-2023 09:25-0400 Body weight 88.27 kg 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 Work Phone: [facility] 04-14-2023 09:25-0400 Diastolic blood pressure 76 mm[Hg] 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 Work Phone: [facility] 04-14-2023 09:25-0400 Heart rate 68 /min 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 Work Phone: [facility] 04-14-2023 09:25-0400 Systolic blood pressure 116 mm[Hg] 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 Work Phone: [facility] Encounters Encounter Date Encounter Type Care Provider Facility Start: 05-08-2025 ambulatory Salena Rodríguez Facility :[facility] Start: 04-19-2025 End: 04-19-[address] Salena Rodríguez MD -[facility] Work Phone: Start: 04-19-2025 End: 04-19-[address] Samaria Correa DO Work Phone: -[facility] Start: 04-08-2025 ambulatory Salena Rodríguez Facility :[facility] Start: 04-08-2025 Non-patient / Non-visit Dr. Brittany MOSHER -[facility] Start: 04-08-2025 End: 04-08-[address] Salena Rodríguez MD -[facility] Work Phone: Start: 04-08-2025 End: 04-08-[address] Samaria Correa DO Work Phone: -[facility] Start: 04-05-2025 ambulatory No Primary Car e Physician Facility:[facility] Start: 04-01-2025 End: 04-01-[address] Samaria Correa DO Work Phone: -[facility] Start: 04-01-2025 End: 04-01-[address] Salena Rodríguez MD -[facility] Work Phone: Start: 04-01-2025 End: 04-01-2025 ambulatory Salena Rodríguez Facility:[facility] Start: 03-29-2025 End: 03-29-[address] Salena Rodríguez MD -[facility] Work Phone: Start: 03-29-2025 End: 03-29-[address] Samaria Correa DO Work Phone: -[facility] Start: 03-26-2025 End: 03-26-[address] Samaria Correa DO Work Phone: -[facility] Start: 03-26-2025 End: 03-26-[address] Samaria Correa DO -[facility] Work Phone: Start: 03-26-2025 End: 03-26-2025 ambulatory Samaria Correa Facility:[facility] Start: 03-05-2025 Encounter for gynecological examination (general) (routine) without abnormal findings Samaria Correa [facility] Start: 03-05-2025 End: 03-05-[address] Samaria Correa DO -[facility] Work Phone: Start: 03-05-2025 End: 03-05-[address] Samaria Correa DO [facility] Start: 03-05-2025 End: 03-05-2025 ambulatory Samaria Correa [facility] Work Phone: Start: 11-23-2024 End: 11-23-2024 Postop follow up visit related to original px Analisa Winston MD Work Phone: [facility] Comment on above: Closed fracture of l eft wrist with routine healing, subsequent encounter (Primary Dx) Start: 11-23-2024 End: 11-27-2024 ambulatory ANALISA WINSTON [facility] Start: 11-22-2024 End: 11-26-2024 ambulatory Analisa Winston MD Work Phone: [facility] Comment on above: Closed fracture of l eft wrist with routine healing, subsequent encounter (Primary Dx) Start: 11-20-2024 End: 11-24-2024 ambulatory Analisa Winston MD Work Phone: [facility] Comment on above: Closed fracture of l eft wrist with routine healing, subsequent encounter (Primary Dx) Start: 11-15-2024 End: 11-19-2024 ambulatory Analisa Winston MD Work Phone: [facility] Comment on above: Closed fracture of l eft wrist with routine healing, subsequent encounter (Primary Dx) Start: 11-13-2024 End: 11-17-2024 ambulatory Analisa Winston MD [facility] Phone[facility] Comment on above: Closed fracture of l eft wrist with routine healing, subsequent encounter (Primary Dx) Start: 11-08-2024 End: 11-12-2024 ambulatory Analisa Winston MD Work Phone: [facility] Comment on above: Closed fracture of l eft wrist with routine healing, subsequent encounter (Primary Dx) Start: 11-06-2024 End: 11-10-2024 ambulatory Analisa Winston MD Work Phone: [facility] Comment on above: Closed fracture of l eft wrist with routine healing, subsequent encounter (Primary Dx) Start: 11-01-2024 End: 11-05-2024 ambulatory Analisa Winston MD Work Phone: [facility] Comment on above: Closed fracture of l eft wrist with routine healing, subsequent encounter (Primary Dx) Start: 10-30-2024 End: 11-03-2024 ambulatory Analisa Winston MD Work Phone: [facility] Comment on above: Closed fracture of l eft wrist with routine healing, subsequent encounter (Primary Dx) Start: 10-26-2024 End: 10-26-2024 Postop follow up visit related to original px Analisa Winston MD Work Phone: [facility] Comment on above: Closed fracture of l eft wrist with routine healing, subsequent encounter (Primary Dx) Start: 10-26-2024 End: 10-30-2024 ambulatory PHYSICIAN NO [facility] Start: 10-25-2024 End: 10-29-2024 ambulatory Analisa Winston MD Work Phone: [facility] Comment on above: Closed fracture of l eft wrist with routine healing, subsequent encounter (Primary Dx) Start: 10-23-2024 End: 10-27-2024 ambulatory Analisa Winston MD Work Phone: [facility] Comment on above: Closed fracture of l eft wrist with routine healing, subsequent encounter (Primary Dx) Start: 10-18-2024 End: 10-22-2024 ambulatory Analisa Winston MD Work Phone: [facility] Comment on above: Closed fracture of l eft wrist with routine healing, subsequent encounter (Primary Dx) Start: 10-16-2024 End: 10-20-2024 ambulatory Analisa Winston MD Work Phone: [facility] Comment on above: Closed fracture of l eft wrist with routine healing, subsequent encounter (Primary Dx) Start: 10-12-2024 End: 10-12-2024 Postop follow up visit related to original px Analisa Winston MD Work Phone: [facility] Comment on above: Closed fracture of l eft wrist with routine healing, subsequent encounter (Primary Dx) Start: 10-12-2024 End: 10-12-2024 Refill Suzanne Whittaker LPN [facility] Comment on above: Closed fracture of l eft wrist with routine healing, subsequent encounter (Primary Dx) Start: 10-11-2024 End: 10-15-2024 ambulatory Analisa Winston MD Work Phone: [facility] Comment on above: Closed fracture of l eft wrist with routine healing, subsequent encounter (Primary Dx) Start: 10-09-2024 End: 10-13-2024 ambulatory Analisa Winston MD Work Phone: [facility] Comment on above: Closed fracture of l eft wrist with routine healing, subsequent encounter (Primary Dx) Start: 10-04-2024 End: 10-08-2024 ambulatory Analisa Winston MD Work Phone: [facility] Comment on above: Closed fracture of l eft wrist with routine healing, subsequent encounter (Primary Dx) Start: 10-02-2024 End: 10-06-2024 ambulatory Analisa Winston MD Work Phone: [facility] Comment on above: Closed fracture of l eft wrist, initial encounter Start: 09-28-2024 End: 09-28-2024 Postop follow up visit related to original px Analisa Winston MD Work Phone: [facility] Comment on above: Closed fracture of l eft wrist, initial encounter (Primary Dx) Start: 09-28-2024 End: 10-02-2024 ambulatory ANALISA WINSTON [facility] Start: 09-17-2024 End: 09-17-2024 Kristine Steinberg LPN [facility] Comment on above: Closed fracture of l eft wrist, initial encounter (Primary Dx) Start: 09-11-2024 End: 09-11-2024 ambulatory ANALISA WINSTON [facility] Start: 09-10-2024 End: 09-10-2024 Office outpatient new 30 minutes Leatha Hi ATHLETIC AGENT Work Phone: [facility] Comment on above: Closed Colles' fract ure of left radius, initial encounter (Primary Dx) Start: 09-10-2024 End: 09-14-2024 ambulatory PHYSICIAN EVELYN [facility] Start: 09-10-2024 End: 09-10-2024 Admission to same day surgery center Analisa Winston MD Work Phone: [facility] Comment on above: Closed fracture of l eft wrist, initial encounter (Primary Dx) Start: 09-06-2024 End: 09-06-2024 Emergency department patient visit PHYSICIAN NO [facility] Start: 05-09-2023 [address] Mrs[address] Cash Villasenor Rodrigo Fa cility:[id number] Start: 04-20-2023 [address] Mrs[address] Cash Villasenor Rodrigo Fa cility:[id number] Start: 04-14-2023 End: 04-14-2023 Office outpatient visit 25 minutes 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 Work Phone: [facility] Comment on above: Right upper quadrant abdominal swelling, mass and lump (Primary Dx); Concern about varicose veins without diagnosis; Postmenopausal; History of endometriosis; Obesity (BMI 30-39.9) Start: 06-23-2018 End: 06-24-2018 Patient encounter Darya Dumas Facility:[facility] Start: 06-23-2018 Patient encounter Xander ity:[id number] Start: 05-25-2018 End: 05-26-2018 Patient encounter Toneyprashant Agrawal [facility] Start: 12-31-2017 End: 01-01-2018 Patient encounter Ramiro Rahman Facility:[facility] Start: 11-07-2017 End: 11-08-2017 Patient encounter Toney Agrawal [facility] Procedures Date Procedure Procedure Detail Performing Clinician Start: 04-08-[address] Heather Correa DO Work Phone: Start: 04-08-2025 Ultrasonography guid ed biopsy of breast Dr. Samaria Correa DO Work Phone: Start: 04-01-[address] Samaria Correa DO Work Phone: Start: 03-26-2025 Screening mammography Jessee Correa DO Work Phone: Start: 04-14-2020 Mammography Cash GOMEZ Work Phone: Start: 10-07-2015 Colonoscopy Leatha cornejo CNP Work Phone: Plan of Treatment Date Care Activity Detail Author Start: 10-07-2025 Screening for malignant neoplasm of colon [facility] Start: 04-08-2025 Bx breast w/device 1st lesion ultrasound guid BX BREAST 1ST LESION US IMAG [facility] Start: 04-08-2025 Ultrasonography guided biopsy of breast US Breast Biopsy 1st Lesion [facility] Start: 11-23-2024 End: 11-23-2024 Follow-up encounter 11/23/2024 1:30 PM EST Follow-Up [facility] [address] [place] [id number] Analisa Winston MD [address] [place] [address] [facility] Start: 11-22-2024 End: 11-22-2024 ambulatory 11/22/2024 8:30 AM EST Treatment [facility] [address] [place] [address] Analisa Winston MD [address] [place] [address] Rikki Chavez, PT [facility] Start: 11-20-2024 End: 11-20-2024 ambulatory [facility] Start: 11-15-2024 End: 11-15-2024 ambulatory [facility] Start: 11-13-2024 End: 11-13-2024 ambulatory [facility] Start: 11-08-2024 End: 11-08-2024 ambulatory [facility] Start: 11-06-2024 End: 11-06-2024 ambulatory [facility] Start: 11-01-2024 End: 11-01-2024 ambulatory [facility] Start: 10-30-2024 End: 10-30-2024 ambulatory [facility] Start: 10-26-2024 End: 10-26-2024 Follow-up encounter 10/26/2024 2:45 PM EST Follow-Up [facility] [address] [id number] Analisa Winston MD [address] [place] [address] [facility] Start: 10-25-2024 End: 10-25-2024 ambulatory [facility] Start: 10-23-2024 End: 10-23-2024 ambulatory 10/23/2024 4:45 PM EST Treatment [facility] [address] [place] [phone] Analisa Winston MD [address] [place] [address] Rikki Chavez, PT Discharge Disposition: Home [facility] Start: 10-23-2024 End: 10-23-2024 ambulatory [facility] Start: 10-18-2024 End: 10-18-2024 ambulatory [facility] Start: 10-16-2024 End: 10-16-2024 ambulatory [facility] Start: 10-11-2024 End: 10-11-2024 ambulatory 10/11/2024 8:30 AM EST Treatment [facility] [address] [place] [address] Analisa Winston MD [address] [place] [phone] Ashley Jacome [facility] Start: 10-09-2024 End: 10-09-2024 ambulatory 10/09/2024 8:30 AM EST Treatment [facility] [address] [place] [address] Analisa Winston MD [address] [place] [phone] [facility] Jac[facility] Start: 10-04-2024 End: 10-04-2024 ambulatory 10/04/2024 4:45 PM EST Treatment [facility] [address] [place] [address] Analisa Winston MD [address] [place] [phone] Rikki Chavez, PT Discharge Disposition: Home [facility] Start: 09-28-2024 End: 09-28-2024 Follow-up encounter 09/28/2024 3:45 PM EST Follow-Up [facility] [address] [place] [address] Analisa Winston MD [address] [place] [phone] [facility] Start: 09-11-2024 Subsequent hospital visit by physician 09/11/2024 Hospital Encounter [facility] [address] [place] [address] Analisa Winston MD [address] [place] [address] [facility] Start: 05-20-2024 COVID-19 Vaccine ( season) COVID-19 Vaccine ( season) [facility] Start: 05-20-2024 Influenza vaccination Influenza Vaccine (#1) [facility] Start: 04-16-2024 End: 04-16-2024 Patient encounter procedure 04/16/2024 8:30 AM EDT Office Visit [facility] [address] [place] [address] 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, 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 [address] [facility] [place], [place] [id number] [facility] Start: 05-20-2023 Influenza vaccination Influenza Vaccine (#1) [facility] Start: 04-14-2021 Screening for malignant neoplasm of breast Mammogram [facility] Start: 2019 Administration of herpes zoster vaccine Zoster Vaccines (1 of 2) [facility] Start: 2019 Pneumococcal Vaccine: Age 50+ (1 of 1 - PCV) Pneumococcal Vaccine: Age 50+ (1 of 1 - PCV) [facility] Start: 2019 Screening for malignant neoplasm of colon Flexible sigmoidoscopy [facility] Start: 2019 Zoster Vaccines (1 of 2) Zoster Vaccines (1 of 2) [facility] Start: 05-12-2019 DTaP/Tdap/Td Vaccines (2 - Td or Tdap) DTaP/Tdap/Td Vaccines (2 - Td or Tdap) [facility] Start: 05-12-2019 Tetanus vaccination Tetanus: Every 10yrs [facility] Start: 2009 Screening for malignant neoplasm of breast Mammogram [facility] Start: 1999 Screening for malignant neoplasm of cervix [facility] Start: 1990 Screening for malignant neoplasm of cervix [facility] Start: 1987 Hepatitis C screening Hepatitis C Screening [facility] Start: 1984 HIV screening HIV Screening [facility] Start: 1981 Depression screening using PHQ-9 (Patient Health Questionnaire 9) score Depression Screening/Follow-Up (PHQ-2/9) [facility] Start: 1972 History and physical examination, annual for health maintenance Wellness Visit [facility] Start: 1970 MMR Vaccines (1 of 1 - Standard series) MMR Vaccines (1 of 1 - Standard series) [facility] Start: 1969 COVID-19 Vaccine (#1) COVID-19 Vaccine (#1) [facility] Start: 1969 Hepatitis B Vaccines (1 of 3 - 3-dose series) Hepatitis B Vaccines (1 of 3 - 3-dose series) [facility] Start: 1969 HIV screening HIV Screening [facility] Start: 1969 Lipid panel Lipid Panel [facility] Start: 1969 Screening for malignant neoplasm of colon [facility] Start: 1969 Yearly Adult Physical Yearly Adult Physical [facility] Optx dstl radl i-art ic fx/epiphysl sep 2 frag OPEN REDUCTION INTERNAL FIXATION RADIUS Closed fracture of left wrist, initial encounter [facility] Main OR US abdomen complete US abdomen c omplete Imaging Routine 04/14/2023 10:13 AM EDT [facility] Service Area Work Phone: US Breast limited [facility] Immunizations Immunization Date Immunization Notes Care Provider Martha arreola 05-12-2009 tetanus toxoid, redu lynnette diphtheria toxoid, and acellular pertussis vaccine, adsorbed 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 840.1.357404.3.579.2.356 1969 Unknown [id number] 2.16.8 40.1.780867.3.579.2.1069 1969 Unknown [id number] 2.16.8 40.1.526352.3.579.2.1069 1969 Unknown [id number] 2.16. 840.1.139562.3.579.2.902 1969 Unknown [id number] 2.16. 840.1.829293.3.579.2.903 1969 Unknown [id number] 2.16. 840.1.067591.3.579.2.903 1969 Unknown [id number] 2.16. 840.1.122114.3.579.2.903 1969 Unknown [id number] 2.16. 840.1.942640.3.579.2.903 1969 Unknown [id number] 2.16. 840.1.639711.3.579.2.903 1969 Unknown [id number] 2.16. 840.1.381975.3.579.2.903 1969 Unknown [id number] 2.16. 840.1.719574.3.579.2. 1969 Unknown [id number] 2.16. 840.1.720998.3.579.2 1969 Unknown [id number] 2.16. 840.1.794394.3.579.2 1969 Unknown [id number] 2.16. 840.1.707782.3.579.2 1969 Unknown [id number] 2.16. 840.1.411270.3.579.2 1969 Unknown [id number] 2.16. 840.1.852899.3.579.2 1969 Unknown [id number] 2.16. 840.1.280596.3.579.2 1969 Unknown [id number] 2.16. 840.1.729066.3.579.2 1969 Unknown [id number] 2.16. 840.1.657790.3.579.2 1969 Unknown [id number] 2.16. 840.1.174881.3.579.2 1969 Unknown [id number] 2.16. 840.1.421396.3.579.2 1969 Unknown [id number] 2.16. 840.1.325293.3.579.2 1969 Unknown [id number] 2.16. 840.1.570760.3.579.2 1969 Unknown [id number] 2.16. 840.1.321335.3.579.2 1969 Unknown [id number] 2.16. 840.1.613906.3.579.2 1969 Unknown [id number] 2.16. 840.1.608445.3.579.2.903 1969 Unknown [id number] 2.16. 840.1.705002.3.579.2.903 1969 Unknown [id number] 2.16. 840.1.096774.3.579.2.903 1969 Unknown [id number] 2.16. 840.1.407790.3.579.2.903 1969 Unknown [id number] 2.16. 840.1.087976.3.579.2.903 Blue Cross Blue Shield 1.2.8 40.372630.1.13.385.2.7.9.412695.335.315 Unknown [id number] Unknown [id number] Unknown [id number] 2.16.8 40.1.963568.3.579.2.462 Unknown [id number] 2.16.8 40.1.054976.3.579.2.462 Unknown [id number] 2.16.8 40.1.709908.3.579.2.462 Unknown [id number] 2.16.8 40.1.452401.3.579.2.462 Unknown [id number] 2.16.8 40.1.238023.3.579.2.462 Unknown [id number] 2.16.8 40.1.037739.3.579.2.462 Unknown [id number] 2.16.8 40.1.672909.3.579.2.462 Unknown [id number] 2.16.8 40.1.187538.3.579.2.462 Unknown [id number] 2.16.8 40.1.301531.3.579.2.462 Social History Date Type Detail Facility Start: 04-14-2023 End: 03-05-2025 Tobacco smoking status IAIS Never smoked tobacco [facility] Work Phone: Start: 04-14-2023 End: 09-06-2024 Tobacco use and exposure Smokeless tobacco non-user [facility] Work Phone: Start: 04-14-2023 End: 11-23-2024 Alcohol intake Lifetime non-drinker (finding) [facility] Work Phone: Start: 04-14-2023 End: 11-23-2024 History of Social function [facility] Work Phone: Start: 04-14-2023 End: 11-23-2024 Tobacco use panel [facility] Work Phone: Start: 1970 Sex Assigned At Not on file [facility] Work Phone: Start: 04-04-2023 End: 04-14-2023 Exposure to SARS-CoV-2 (event) Not sure [facility] Start: 09-07-2024 Gender identity Identifies as female gender (finding) [facility] Start: 09-07-2024 Sexual orientation Heterosexual (finding) [facility] Start: 1970 Sex Assigned At Female [facility] Medical Equipment Procedure Code Equipment Code Equipment Origin al Text Equipment Identifier Dates Plate 2.4mm 6hl Head 2hl Shaft Distal Radius Lt 02.111.621 - [id number] Start: 09-11-2024 Comment on above: Description: Load # 01-06 Screw 2.7 X 14mm Cortex Self-Tap T8 Strdrv Rec - [id number] Start: 09-11-2024 Comment on above: Description: Load # 01-06 Screw 2.4 X 18mm Wisam Ang Lock Strdrv - [id number] Start: 09-11-2024 Comment on above: Description: Load # 01-06 Screw 2.4 X 22mm Wisam Ang Lock Strdrv - [id number] Start: 09-11-2024 Comment on above: Description: Load # 01-06 Clinical Notes 03-25-2021 to 04-08-2025 Note Date & Type Note Facility 04-08-2025 Procedure note [facility] 04-01-2025 Radiology Diagnostic study note [facility] Imaging Services [address] [place] [address] Breast Limited Unilateral MR#: [id number] Acct: [id number] Name: GALINA SERRA Rep #: [id number] : 1970 F 54 From: Chase Medrano MD PCP: Care Physician,No Primary Status: REG CLI Study:Breast Limited Unilateral Date of Exam: 04/01/25 Exam# [id number] Ordering Dr: St maryanne Rodríguez MD PROCEDURE: BREAST LIMITED UNILATERAL 04/01/2025 REASON FOR EXAM: F, Age 54 y/o , ABNORMAL MAMMOGRAM OF LEFT BREAST COMPARISON: Prior mammogram dated March 26, 2025.. TECHNIQUE: BREAST LIMITED UNILATERAL FINDINGS: The lower inner quadrant of the left breast was examined with ultrasound. The mammographic abnormality corresponds to a 7 mm x 4 mm x 6 mm hypoechoic irregular density with posterior shadowing at the 9 o'clockposition of the breast at 5 cm from the nipple. Biopsy recommended. US/Breast Limited Unilateral IMPRESSION: The mammographic abnormality corresponds to a 7 mm x 4 mm x 6 mm ill-defined hypoechoic nodular density at the 9 o'clock position of the breast at 5 cm from the nipple. There is evidence of posterior acoustical shadowing. Biopsy recommended. BI-RADS 4: SUSPICIOUS ABNORMALITY. RECOMMENDATION: Biopsy Recommended Reading Location: [facility] CC: Dr. Salena Rodríguez MD; No Primary Care Physician ~ Optical Worker: Signed [facility] 03-05-2025 Evaluation note Diagnosis Onset Date Resolution Encounter for routine gynecological examination noneactive March 05, 2025 11:07am [facility] Work Phone: 1(850) 198-148906-17-2025 Evaluation note* Diagnosis Onset Date Resolution Status Admit Date Encounter for routine gynecological examination noneactive February 172024 11:07am Abnormal mammogram acute March 192024 9:44am [facility] Work Phone: 1(808) 822-782606-17-2025 Evaluation note* Diagnosis Onset Date Resolution Status Admit Date Encounter for routine gynecological examination noneactive February 172024 11:07am Abnormal mammogram acute March 192024 9:44am Left breast mass acute March 1:16pm [facility] Work Phone: 1(532) 404-906606-17-2025 [facility] [address] [place], [address] [place] [address] OFFICE VISIT Date of Service: 03/05/25 MR#: [id number] Acct: [id number] Name: GALINA SERRA Rep #: [id number] : 1970 Provider: Dr. 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 03/05/25 1143 e Raymundo DO> Date _ Samaria Bandaignsindy Signature: Date (if applicable) CC: ~ [facility]03-07-2025 NoteLaurie an is 2-1/2 months status post ORIF left [...] on a p.r.n. basis. AUTHENTICATED BY ANALISA WINSTON, ON 11/24/2024 11:22:45[facility]03-06-2025 History of Present illness Narrative* Rikki Chavez, PT - 11/22/2024 8:30 AM EST Images from the original note were not included. [facility] DAILY TREATMENT NOTE Today's [...] this morning. Objective Wrist/Hand Right Wrist/Hand Hand Pipe Line Gauger Fisher Eel Average: 51.67 #1: 58 #2: 45 #3: 52 Left Wrist/Hand Range of Motion: Wrist Flexion: Active: 50 Passive: 62 Wrist Extension: Active: 50 Passive: 65 Radial Deviation: Active: 22 Passive: 26 Ulnar Deviation Active: 32 Passive: 34 Supination Active: 90 Pronation Active: 90 Muscle Strength: WFL Hand Pipe Line Gauger Fisher Eel Average: 27.33 #1: 27 #2: 25 #3: 30 Treatments: Physical Therapy Exercise Log - 11/22/24 0832 OTHER Precautions/Contraindications Supervising PT: Adrien - Left Wrist ORIF 09/11 Notes Visit 15: 8:32 - 9:15 [employer] Therapeutic Exercise (19763) Intervention prayer stretch and table stretch for [...] red x1 min - NT Intervention pincher doctor of naprapathic medicine w/ index and middle fingers / rsoe doctor of naprapathic medicine green clip x 15 each - NT Parameters Access Code: [email or web address] URL: [email or web address] Date: 10/02/2024 Prepared by: Rikki Chavez Exercises [...] reps - 3 seconds hold Manual Therapy (64223) Intervention carpal joint mobs and PROM x10 [...] Treatment Visit with focus on strengthening Rikki Chavez PT State License, [id number] documented in this [id number] History of Present illness Narrative* Rikki Chavez PT - 11/20/2024 3:15 PM EST Images from the original note were not included. [facility] DAILY TREATMENT NOTE Today's [...] 3:20 - 4:02 [employer] Therapeutic Exercise (12122) Intervention prayer stretch and table stretch for [...] red x1 min - NT Intervention pincher doctor of naprapathic medicine w/ index and middle fingers / rose doctor of naprapathic medicine green clip x 15 each - NT Parameters Access Code: [email or web address] URL: [email or web address] Date: 10/02/2024 Prepared by: Rikki Chavez Exercises [...] reps - 3 seconds hold Manual Therapy (26956) Intervention carpal joint mobs and PROM x10 [...] and strengthening Rikki Chavez PT State License, [id number] documented in this [id number] History of Present illness Narrative* Rikki Chavez, PT - 11/15/2024 8:30 AM EST Images from the original note were not included. [facility] DAILY TREATMENT NOTE Today's [...] 8:35 - 9:15 [employer] Therapeutic Exercise (58735) Intervention prayer stretch and table stretch for [...] Parameters digi-flex red x1 min Intervention pincher doctor of naprapathic medicine w/ index and middle fingers / rose doctor of naprapathic medicine green clip x 15 each Parameters Access Code: [email or web address] URL: [email or web address] Date: 10/02/2024 Prepared by: Rikki Chavez Exercises [...] reps - 3 seconds hold Manual Therapy (54892) Intervention carpal joint mobs and PROM x10 [...] strength progressions Rikki Chavez PT State License, [id number] documented in this [id number] History of Present illness Narrative* Rikki Chavez PT - 11/13/2024 7:45 AM EST Images from the original note were not included. [facility] DAILY TREATMENT NOTE Today's [...] 7:50 - 8:32 [employer] Therapeutic Exercise (20144) Intervention prayer stretch and table stretch for [...] Parameters digi-flex red x1 min Intervention pincher doctor of naprapathic medicine w/ index and middle fingers / rose doctor of naprapathic medicine green clip x 15 each Parameters Access Code: [email or web address] URL: [email or web address] Date: 10/02/2024 Prepared by: Rikki Chavez Exercises [...] reps - 3 seconds hold Manual Therapy (47645) Intervention carpal joint mobs and PROM x10 [...] extension ROM Rikki Chavez PT State License, [id number] documented in this [id number] History of Present illness Narrative* Rikki Chavez PT - 11/08/2024 8:30 AM EST Images from the original note were not included. [facility] DAILY TREATMENT NOTE Today's [...] 8:35 - 9:18 [employer] Therapeutic Exercise (66503) Intervention prayer stretch and table stretch for [...] Parameters digi-flex red x1 min Intervention pincher doctor of naprapathic medicine red clip x 1 min Parameters Access Code: [email or web address] URL: [email or web address] Date: 10/02/2024 Prepared by: Rikki Chavez Exercises [...] reps - 3 seconds hold Manual Therapy (33807) Intervention carpal joint mobs and PROM x10 [...] on AROM Rikki Chavez PT State License, [id number] documented in this [id number] History of Present illness Narrative* Rikki Chavez, PT - 11/06/2024 8:30 AM EST Images from the original note were not included. [facility] DAILY TREATMENT NOTE Today's [...] 8:31 - 9:17 [employer] Therapeutic Exercise (85989) Intervention prayer stretch and table stretch for [...] Parameters digi-flex red x1 min Intervention pincher doctor of naprapathic medicine red clip x 1 min Parameters Access Code: [email or web address] URL: [email or web address] Date: 10/02/2024 Prepared by: Rikki Chavez Exercises [...] reps - 3 seconds hold Manual Therapy (14627) Intervention carpal joint mobs and PROM x10 [...] on ROM Rikki Chavez PT State License, [id number] documented in this [id number] History of Present illness Narrative* Rikki Chavez PT - 11/01/2024 7:45 AM EST Images from the original note were not included. [facility] DAILY TREATMENT NOTE Today's [...] 7:46 - 8:35 [employer] Therapeutic Exercise (42350) Intervention prayer stretch and table stretch for [...] Parameters digi-flex red x1 min Intervention pincher doctor of naprapathic medicine red clip x 1 min Parameters Access Code: [email or web address] URL: [email or web address] Date: 10/02/2024 Prepared by: Rikki Chavez Exercises [...] reps - 3 seconds hold Manual Therapy (46100) Intervention carpal joint mobs and PROM x10 [...] and strength Rikki Chavez PT State License, [id number] documented in this [id number] History of Present illness Narrative* Rikki Chavez PT - 10/30/2024 8:30 AM EST Images from the original note were not included. [facility] DAILY TREATMENT NOTE Today's [...] 8:35 - 9:20 [employer] Therapeutic Exercise (32067) Intervention prayer stretch and table stretch for [...] Parameters digi-flex red x1 min Intervention pincher doctor of naprapathic medicine red clip x 1 min Parameters Access Code: [email or web address] URL: [email or web address] Date: 10/02/2024 Prepared by: Rikki Chavez Exercises [...] reps - 3 seconds hold Manual Therapy (61825) Intervention carpal joint mobs and PROM x10 [...] strength progressions Rikki Chavez PT State License, [id number] documented in this [id number] NoteSUBJECTIVE At this point in time, the [...] did a narcotic review. Last medication was [place] on 09/18/2024. AUTHENTICATED BY ANALISA WINSTON, ON 10/27/2024 10:15:30[facility]02-06-2025 History of Present illness Narrative* Rikki Chavez, PT - 10/25/2024 8:30 AM EST Images from the original note were not included. [facility]ILY TREATMENT NOTE Today's [...] 8:34 - 9:18 [employer] Insurance Therapeutic Exercise (11267) Intervention -- Parameters forearm and wrist flex/ext [...] Parameters digi-flex red x1 min Intervention pincher doctor of naprapathic medicine red clip x 1 min Parameters -- Parameters Access Code: [email or web address] URL: [email or web address] Date: 10/02/2024 Prepared by: Rikki Chavez Exercises [...] reps - 3 seconds hold Manual Therapy (43818) Intervention carpal joint mobs and PROM x10 [...] strength progressions Rikki Chavez PT State License, [id number] documented in this [id number] History of Present illness Narrative* Rikki Chavez PT - 10/23/2024 4:45 PM EST Images from the original note were not included. [facility] DAILY TREATMENT NOTE Today's [...] 4:48 - 5:28 [employer] Insurance Therapeutic Exercise (42628) Intervention heat prior to therex up to [...] Parameters digi-flex yellow x1 min Intervention pincher doctor of naprapathic medicine red clip x 1 min Parameters supination w/ 2# dumbbell x10 Parameters Access Code: [email or web address] URL: [email or web address] Date: 10/02/2024 Prepared by: Rikki Chavez Exercises [...] reps - 3 seconds hold Manual Therapy (70141) Intervention carpal joint mobs and PROM x10 [...] strength progressions Rikki Chavez PT State License, [id number] documented in this [id number] History of Present illness Narrative* Ender Franklin PTA - 10/18/2024 8:30 AM EST Images from the original note were not included. [facility] DAILY TREATMENT NOTE Today's [...] 8:32 - 9:16 [employer] Insurance Therapeutic Exercise (42688) Intervention heat prior to therex up to [...] Parameters digi-flex yellow x1 min Intervention pincher doctor of naprapathic medicine yellow clip x 1 min Parameters supination w/ 2# dumbbell x10 Parameters Access Code: [email or web address] URL: [email or web address] Date: 10/02/2024 Prepared by: Rikki Chavez Exercises [...] reps - 3 seconds hold Manual Therapy (45099) Intervention carpal joint mobs and PROM x5 [...] and stretching Ender Franklin PTA STATE LICENSE, [id number] documented in this [id number] History of Present illness Narrative* Rikki Chavez, GISELA - 10/16/2024 8:30 AM EST Images from the original note were not included. [facility] DAILY TREATMENT NOTE Today's [...] 8:32 - 9:16 [employer] Therapeutic Exercise (23425) Intervention heat prior to therex up to [...] Parameters digi-flex yellow x1 min Intervention pincher doctor of naprapathic medicine yellow clip x 1 min Parameters supination w/ 2# dumbbell x10 Parameters Access Code: [email or web address] URL: [email or web address] Date: 10/02/2024 Prepared by: Rikki Chavez Exercises [...] reps - 3 seconds hold Manual Therapy (89421) Intervention carpal joint mobs and PROM x12 [...] ROM progressions Rikki Chavez PT State License, [id number] documented in this [id number] NoteGalina comes in today for 4-week followup of [...] a narcotic review. Last listed medication was Orlando on 09/18/2024. AUTHENTICATED BY ANALISA WINSTON, ON 10/15/2024 17:03:27[facility] [id number] History of Present illness Narrative* Ashley Jacome PTA - 10/11/2024 8:30 AM EST Images from the original note were not included. [facility] DAILY TREATMENT NOTE Today's [...] Left Wrist ORIF 09/11 Notes Visit 3: 7545-6900 [employer] Therapeutic Exercise (31204) Parameters forearm and wrist flex/ext stretches 3x20 [...] Parameters digi-flex yellow x1 min Intervention pincher doctor of naprapathic medicine yellow clip x 1 min Parameters Access Code: [email or web address] URL: [email or web address] Date: 10/02/2024 Prepared by: Rikki Chavez Exercises [...] reps - 3 seconds hold Manual Therapy (89412) Intervention carpal joint mobs and PROM x10 mins Parameters STM to forearm with pushing fluid proximally 5 min PT Treatment Times Therex Total Time 36 3749-4738 Manual Therapy Total Time 15 0459-4132 Direct Treatment Time 51 Total Treatment Time [...] focus on continue. Monitor incision site. Ashley Jacome PTA State License, [id number] documented in this [id number] History of Present illness Narrative* Ashley Jacome PTA - 10/09/2024 8:30 AM EST Images from the original note were not included. [facility] DAILY TREATMENT NOTE Today's [...] Objective added PREs to improve wrist and doctor of naprapathic medicine function Treatments: Physical Therapy Exercise Log - 10/09/24 0837 OTHER Precautions/Contraindications Supervising PT: Adrien - Left Wrist ORIF 09/11 Notes Visit 3: [employer] Therapeutic Exercise (57990) Parameters forearm and wrist flex/ext stretches 3x20 [...] Parameters digi-flex yellow x1 min Intervention pincher doctor of naprapathic medicine yellow clip x 1 min Parameters Access Code: [email or web address] URL: [email or web address] Date: 10/02/2024 Prepared by: Rikki Chavez Exercises [...] reps - 3 seconds hold Manual Therapy (97347) Intervention carpal joint mobs and PROM x10 mins PT Treatment Times Therex Total Time 32 1635-7695 Manual Therapy Total Time 10 1104-0716 Direct Treatment Time 42 Total Treatment Time [...] expected response to treatment. Significant forearm and doctor of naprapathic medicine strength weakness present. Achieved good stretch with modified median nerve glides. Skilled Intervention demonstrated by modifications of treatment per exercise log including increased load, increased rate, increased intensity, increased volume, and assessment of patient's response and safety interventions per exercise log. Progress towards goals as expected. Plan for Next Visit: Treatment Visit with focus on continue Ashley Jacome PTA State License, [id number] documented in this [id number] History of Present illness Narrative* Rikki Chavez PT - 10/04/2024 4:00 PM EST Images from the original note were not included. [facility] DAILY TREATMENT NOTE Today's [...] 4:05 - 4:43 [employer] Insurance Therapeutic Exercise (05301) Parameters forearm and wrist flex/ext stretches 3x20 each Intervention supination stretch 3x20 Parameters flex/ext AROM x 10 Intervention radial/ulnar deviation AROM x 10 Parameters finger spreading w/ palm flat x10 Intervention opposition / tendon glides 5x3 each Parameters yellow putty exercises x 5 mins - provided for HEP Parameters Access Code: [email or web address] URL: [email or web address] Date: 10/02/2024 Prepared by: Rikki Chavez Exercises [...] reps - 3 seconds hold Manual Therapy (52965) Intervention carpal joint mobs and PROM x15 [...] ROM progressions Rikki Chavez PT State License, [id number] documented in this [id number] History of Present illness Narrative* Rikki Chavez PT - 10/02/2024 9:15 AM EST Images from the original note were not included. 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 yes Red Flags: None Comments: Barriers to Care: None Latter-Day, social, or cultural considerations to be made aware of before starting treatment: No Wrist/Hand Left Wrist/Hand Range of Motion: Wrist Flexion: Active: 18 Wrist Extension: Active: 34 Radial Deviation: Active: 14 Ulnar Deviation Active: 24 Supination Active: 8 Pronation Active: 90 Additional Findings: Finger and opposition ROM is WNL FOTO: 50 Treatments: Physical Therapy Exercise Log - 10/02/24 0936 OTHER Precautions/Contraindications Supervising PT: Adrien - Left Wrist ORIF 09/11 Notes Eval: 9:16 - 10:02 [place] Insurance Therapeutic Exercise (82445) Intervention initial HEP: Parameters forearm and wrist flex/ext stretches Intervention supination stretch Parameters flex/ext AROM Intervention radial/ulnar deviation Parameters finger spreading w/ palm flat Intervention opposition / tendon glides Parameters Access Code: [email or web address] URL: [email or web address] Date: 10/02/2024 Prepared by: Rikki Chavez Exercises [...] reps - 3 seconds hold Manual Therapy (31397) Intervention carpal joint mobs and PROM x10 [...] with HEP in 2 weeks. 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 Pt was also educated on treatment diagnosis, POC, and frequency/duration of treatment. Rikki Chavez PT State License, [id number] documented in this [id number] Cheryl comes in today for 2-week followup [...] did a narcotic review. Last medication was [place] on 09/18/2024. 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 Winston. Dr. Cox is going to add her [...] her back if needed. 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 Winston. Dr. Cox is going to add her [...] needed. 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 We discussed walking some time in her [...] CARE 2008 - COLONOSCOP W/ OR W/O [facility] SPEC 10/07/2015 Repeat 2025 - PAST SURGICAL [...] diagnosis) - Encouraged monthly (more content not included)...[facility] Evaluation note* Diagnosis Right upper quadrant abdominal swelling, mass and lump- Primary Concern about varicose veins without diagnosis Postmenopausal Asymptomatic postmenopausal status (age-related) (natural) History of endometriosis Personal history of other genital system and obstetric disorders Obesity (BMI 30-39.9) documented in this encounter [facility] Work Phone: Evaluation note* Diagnosis Closed Colles' [...] routine gynecological examination noneactive February 172024 11:07am [facility] Work Phone: Progress note Author Samaria Fonseca [facility] Note Date/Time March 05, 2025 11:4 3am [facility] [address] [place] [address], [address] [place] [address] OFFICE VISIT Date of Service: 03/05/25 MR#: [id number] Acct: [id number] Name: EVELYNGALINA MUNIZ Rep #: [id number] : 1970 Provider: Dr. 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 Work Phone: Reason for referral (narrative)* Consultation (Routine) - Authorized Specialty Diagnoses / Procedures Referred By Alice thompson Referred To Contact Primary Care Procedures Follow Up In Primary Care - Health Maintenance [place], Cash L, 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 [address] [facility], [address] [place] [address] Referral ID Status Reason Start Date Expiration Date V isits Requested Visits Authorized [id number] Authorized 04/14/2023 10/11/2023 1 1 * Consultation (Routine) - Authorized Specialty Diagnoses / Procedures Referred By Alice thompson Referred To Contact Gynecology Diagnoses History of endometriosis Procedures CO OFFICE/OUTPATIENT NEW HIGH MDM 60-74 MINUTES Cahs Sanchez APRN-CNP [address] [facility], [facility] [address] [place] [id number] Referral ID Status Reason Start Date Expiration Date Visits Requested Visits Authorized [id number] Authorized Specialty Services Required 04/14/2023 10/11/2023 1 1 Scheduling Instructions [facility] [address], [address] [place] [address] PHONE: [facility] Work Phone: Reason for referral (narrative)No reason for referral [facility] Work Phone: Rewxut for visit Narrative* Orthopedic PT (Routine) - Authorized Specialty Diagnoses / Procedures Referred By Alice t Referred To Contact Rehabilitation Diagnoses Closed fracture of left wrist, initial encounter Analisa Winston MD [address] [place] [phone] Phone: tel: fax: [facility] [address] [place] [phone] Phone: tel: fax: Referral ID Status Reason Start Date Expiration Date V isits Requested Visits Authorized [id number] Authorized 09/29/2024 09/29/2025 13 13 [facility] Summary Purpose Family History No Family History [...] for Visit Chief Complaint Admit Date Annual (PAINT COATING MACHINE OPERATOR) March 05, 2025 11:0 7am Reason for Visit Admit Date Encounter for routine gynecological exam ination March 05, 2025 11:07am Chief Complaint Admit Date Annual (PAINT COATING MACHINE OPERATOR) March 05, 2025 11:0 7am SCREENING March 26, 2025 7:54a m BIRADS 4- MAMMO ONLY March 29, 2025 9:4 4am Chief Complaint Admit Date Annual (PAINT COATING MACHINE OPERATOR) March 05, 2025 11:0 7am SCREENING March 26, 2025 7:54a m BIRADS 4- MAMMO ONLY March 29, 2025 9:4 4am abnormal mammogram of left breast March 192024 7:45am Reason for Visit Admit Date Encounter for routine gynecological exam ination March 05, 2025 11:07am Abnormal mammogram March 29, 2025 9:44 am Chief Complaint Admit Date Annual (PAINT COATING MACHINE OPERATOR) March 05, 2025 11:0 7am SCREENING March 26, 2025 7:54a m BIRADS 4- MAMMO ONLY March 29, 2025 9:4 4am abnormal mammogram of left breast March 192024 7:45am abnormal mammogram left April 08, 2025 1:16pm abnormal mammogram left April 08, 2025 2:34pm Reason for Visit Admit Date Encounter for routine gynecological exam ination March 05, 2025 11:07am Abnormal mammogram March 29, 2025 9:44 am Left breast mass April 08, 2025 1:16 pm Chief Complaint Admit Date Annual (PAINT COATING MACHINE OPERATOR) March 05, 2025 11:0 7am SCREENING March 26, 2025 7:54a m BIRADS 4- MAMMO ONLY March 29, 2025 9:4 4am abnormal mammogram of left breast March 192024 7:45am abnormal mammogram left Vilma 21st, 2025 1:16pm abnormal mammogram left April 08, 2025 2:34pm S/P BREAST BIOPSY April 19, 2025 8:0 8am Additional Source Comments INFORMATION SOURCE (unrecogn ized section and content) DATE CREATED AUTHOR 07/21/2018 [facility] DATE CREATED AUTHOR AUTHOR'S ORGANIZ ATION 07/21/2018 [facility] DATE CREATED AUTHOR AUTHOR'S ORGANIZ ATION 10/11/2021 [facility] DATE CREATED AUTHOR AUTHOR'S ORGANIZ ATION 05/12/2023 [facility] DATE CREATED AUTHOR AUTHOR'S ORGANIZ ATION 10/02/2024 [facility] DATE CREATED AUTHOR AUTHOR'S ORGANIZ ATION 11/26/2024 [facility] DATE CREATED AUTHOR AUTHOR'S ORGANIZ ATION 11/28/2024 [facility] DATE CREATED AUTHOR AUTHOR'S ORGANIZ ATION 04/27/2025 [facility] DATE CREATED AUTHOR AUTHOR'S ORGANIZ ATION 05/07/2025 [facility] Reason for Visit (unrecogniz ed section and content) Reason Comments Establish Care Reason Comments Injury Reason Onset Date Comments Medication Refill 09/17/2024 Reason Comments Follow-up Reason Comments Physical Therapy Specialty Diagnoses / Procedures Referred By Contac t Referred To Contact Rehabilitation Diagnoses Closed fracture of left wrist, initial encounter Analisa Winston MD [address] [place] [phone] Phone: tel: fax: [facility] [address] [place] [address] Phone: tel: fax: Referral ID Status Reason Start Date Expiration Date V isits Requested Visits Authorized [id number] Authorized 09/29/2024 09/29/2025 9 9 Referral ID Status Reason Start Date Expiration Date V isits Requested Visits Authorized [id number] Authorized 09/29/2024 09/29/2025 13 13 Reason Comments Wound Check Reason Onset Date Comments Medication Refill 10/12/2024 Reason Comments Fracture Follow-up Referral ID Status Reason Start Date Expiration Date Visits Re quested Visits Authorized [id number] Closed 09/29/2024 09/29/2025 13 13 Referral ID Status Reason Start Date Expiration Date Visits Re quested Visits Authorized [id number] Closed 09/29/2024 12/17/2025 13 13 Reason Comments Follow-up Care Teams (unrecognized sec tion and content) Rn Oncology Research Relationship Specialty Start Date End Date 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 Della, 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 [address] [facility], [facility] [address] [place] [address] PCP - General Family Medicine 04/12/23 Rn Oncology Research Relationship Specialty Start Date End Date No, Physician [facility] PCP - General 09/06/24 Rn Oncology Research Relationship Specialty Start Date End Date No, Physician [facility] PCP - General 09/06/24 Rn Oncology Research Relationship Specialty Start Date End Date No, Physician [facility] PCP - General 09/06/24 Rn Oncology Research Relationship Specialty Start Date End Date No, Physician [facility] PCP - General 09/06/24 Rn Oncology Research Relationship Specialty Start Date End Date No, Physician [facility] PCP - General 09/06/24 Rn Oncology Research Relationship Specialty Start Date End Date No, Physician [facility] PCP - General 09/06/24 Rn Oncology Research Relationship Specialty Start Date End Date No, Physician [facility] PCP - General 09/06/24 Rn Oncology Research Relationship Specialty Start Date End Date No, Physician [facility] PCP - General 09/06/24 Rn Oncology Research Relationship Specialty Start Date End Date No, Physician [facility] PCP - General 09/06/24 Rn Oncology Research Relationship Specialty Start Date End Date No, Physician [facility] PCP - General 09/06/24 Rn Oncology Research Relationship Specialty Start Date End Date No, Physician [facility] PCP - General 09/06/24 Rn Oncology Research Relationship Specialty Start Date End Date No, Physician [facility] PCP - General 09/06/24 Rn Oncology Research Relationship Specialty Start Date End Date No, Physician [facility] PCP - General 09/06/24 Rn Oncology Research Relationship Specialty Start Date End Date No, Physician [facility] PCP - General 09/06/24 Team Status: Inactive [...] Active Member Role/Relationship Status Dates Dr. Samaria Corera DO Attending Provider Activ e Start: March [...] March 29, 2025 End: March 29, 2025 Team Status: Inactive Member Role/Relationship Status Dates Dr. Samaria Correa DO Attending Provider Activ e Start: March 26, 2025 End: March 26, 2025 Dr. Samaria Correa DO Referring Provider Activ e Start: March 26, 2025 End: March 26, 2025 No Primary Care Physician Primary Care Provider Active Start: March 26, 2025 End: March 26, 2025 Team Status: Active Member Role/Relationship Status Dates No Primary Care Physician Primary Care Provider Active Start: April 01, 2025 Dr. Salena Rodríguez MD Attending Provider Active Start: April 01, 2025 Dr. Salena Rodríguez MD Referring Provider Active Start: April 01, 2025 Team Status: Inactive Member Role/Relationship Status Dates No Primary Care Physician Primary Care Provider Active Start: April 01, 2025 End: April 01, 2025 Dr. Salena Rodríguez MD Attending Provider Active Start: April 01, 2025 End: April 01, 2025 Dr. Salena Rodríguez MD Referring Provider Active Start: April 01, 2025 End: April 01, 2025 Team Status: Inactive Member Role/Relationship Status Dates No Primary Care Physician Primary Care Provider Active Start: April 08, 2025 End: April 08, 2025 Dr. Salena Rodríguez MD Attending Provider Active Start: April 08, 2025 End: April 08, 2025 Dr. Salena Rodríguez MD Referring Provider Active Start: April 08, 2025 End: April 08, 2025 Team Status: Active Member Role/Relationship Status Dates No Primary Care Physician Primary Care Provider Active Start: April 08, 2025 Dr. Salena Rodríguez MD Attending Provider Active Start: April 08, 2025 Dr. Salena Rodríguez MD Referring Provider Active Start: April 08, 2025 Dr. Salena Rodríguez MD Other Provider Active St art: April 08, 2025 Team Status: Inactive Member Role/Relationship Status Dates No Primary Care Physician Primary Care Provider Active Start: April 19, 2025 End: April 19, 2025 No Primary Care Physician Referring Provider Active Start: April 19, 2025 End: April 19, 2025 Dr. Salena Rodríguez MD Attending Provider Active Start: April 19, 2025 End: April 19, 2025 Goals (unrecognized section and content) Goals may be documented in a n alternate sectionGoals may be documented in an alternate sectionGoals may be documented in an alternate sectionGoals may be documented in an alternate sectionGoals may be documented in an alternate sectionGoals may be documented in an [...] BE BASED ON THE PRIMARY CLINICAL RECORDS. [employer] provides no warranty or guarantee of the accuracy or completeness of information in this document.
[2025-05-08] MEDS: Lactated Ringers 1,000 ML 15 ML IV (06:38)
--- NOTE | 2025-05-08 07:03 | NM_ITS ---
PROCEDURE: LYMPH NODE INJECTION ONLY 05/08/2025 REASON FOR EXAM: LEFT BREAST CANCER TECHNIQUE: LYMPH NODE INJECTION ONLY 583 uCi of Tilmanocept was injected subdermally at 1 cm above the left nipple for sentinel node imaging. RADIOPHARMACEUTICAL DOSE: 583 uCi. COMPARISON: None FINDINGS: None NM/Lymph Node Injection Only IMPRESSION: Successful injection of the radiopharmaceutical subdermally at 1 cm above the l eft nipple for sentinel node imaging. Reading Location: [id number]
--- NOTE | 2025-05-08 07:22 | PRE.ANES_ITS ---
ASA Classification* ASA Classification ASA Classification: 1 Assessment & Plan Anesthesia* Anesthesia Assessment Anesthesia Assessment: Discussed sedation and/or anesthesia options, risks, benefits, and alternatives with patient/parents/legal guardian/POA. Questions invited. The patient/parents/legal guardian/POA seems to understand and agrees to proceed with anesthesia plan. Reviewed the physical assessment, medical history, allergy history and patient home medications list prior to surgery/procedure/anesthetic and documented any changes. Performed airway and anesthesia risk assessments. Anesthesia Type Anesthesia Type: General History Source History Obtained from:: Patient and Chart Anesthesia Focused Assessment* Temperature: 97.8 F Pulse Rate: 73 Blood Pressure: 122/71 Respiratory Rate: 14 Pulse Ox: 100 Oxygen Delivery Method: Room Air Airway Assessment Mouth opens: >3 cm Mallampati Score: IV Teeth Condition: Caps/Crowns (Patient has several crowns. 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 When Was Last Pacemaker Check QUESTION #4 FULL TEXT: You/Your Family Experience fever (hyperthermia) with Anesthesia Last Oral Intake Last Oral intake: Last Oral Intake NPO since 20:00 05/08/25 06:31 Meds taken in AM with sips of No 05/08/25 06:31 water? Meds patient instructed to take am of surgery PONV PONV - machine room engineer: PONV - machine room engineer Female Yes 04/25/25 11:09 HX of Motion Sickness No 04/25/25 11:09 HX of N/V After Surgery No 04/25/25 11:09 Non-Smoker Yes 04/25/25 11:09 Duration of Surgery greater Yes 04/25/25 11:09 than 60 minutes Number of Risk Factors 3 04/25/25 11:09 PONV Score Moderate Risk 04/25/25 11:09 Height & Weight Height & Weight: Anesthesia: Height & Weight Height 5 ft 4 in 05/08/25 06:31 Weight: 84 kg 05/08/25 06:31 Body Mass Index (BMI) 31.8 05/08/25 06:31 Respiratory Assessment Respiratory Assessment - machine room engineer: Respiratory Tract Infection Hx - machine room engineer Hx Respiratory Tract Infection No 04/25/25 11:09 STOP Sleep Apnea STOP Sleep Apnea - machine room engineer: STOP Sleep Apnea - machine room engineer Hx Hypertension No 04/25/25 11:09 Hx Sleep Apnea No 04/25/25 11:09 CPAP BIPAP Do you snore loudly (louder No 04/25/25 11:09 than talking or can be heard Do you often feel tired/ No 04/25/25 11:09 fatigued/ sleepy during daytime? Has anyone observed you stop No 04/25/25 11:09 breathing during sleep? STOP Results Negative 04/25/25 11:09 QUESTION #5 FULL TEXT : Do you snore loudly (louder than talking or can be heard through closed doors)? 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 Specify any problems Hx of Preganancy in last 3 No 04/25/25 11:09 Months Nurse Filling Out Transfusion [id number] 04/25/25 11:09 & Questions: Date: 04/25/25 04/25/25 11:09 Time: 11:14 04/25/25 11:09 Patient unable to answer at this time (ie. confused, unrespo /Reproduction History /Reproductive History - machine room engineer: /Reproductive Hx- machine room engineer Hx Now No 04/25/25 11:09 Gestational Age (in weeks): EDC: Hx Hx Para Hx Section SAB No 04/25/25 11:09 Active Medications Active Medications: Current Medications Generic Name Dose Route Start Last Admin Trade Name Zeferino PRN Reason Stop Dose Admin Lactated Ringer's 1,000 mls @ 15 mls/hr 05/08/25 06:15 05/08/25 06:38 IV 15 mls/hr .Q48H GREGORY Administration PFSH Medical History Sterilization Wears glasses Left breast mass Abnormal mammogram Home Medications ?Medication ?Instructions ?Recorded ?Last Taken ?Type AquaSculpt 1 dose PO DAILY 03/29/25 History Allergy/AdvReac Type Severity Reaction Status Date / Time No Known Allergies Allergy Verified 04/25/25 11:07 Family History Uncle Myocardial infarction x3 Surgical History H/O wrist surgery H/O excision of mass Social History Smoking Status: Never smoker alcohol intake: never substance use type: does not use caffeine: No what type of physical activity do you participate in: none seatbelt use: always do you feel safe at home: Yes additional social history: - Dm Review of Systems (Anesthesia) ROS Narrative System reviewed and no additional complaints, except as documented.
--- NOTE | 2025-05-08 08:00 | BI_ITS ---
EXAM: BREAST BIOPSY SPECIMEN 05/08/2025 CLINICAL HISTORY: F, Age 54 y/o , TECHNIQUE: BREAST BIOPSY SPECIMEN COMPARISON: Prior exam(s) dated April 08, 2025.. FINDINGS: The specimen contains the tissue clip marker as well as the mass. BI/Breast Biopsy Specimen IMPRESSION: The specimen contains the tissue clip marker in the mass. A letter with findings and recommendations will be mailed to the patient. Reading Location: [id number]
--- NOTE | 2025-05-08 08:25 | HP.PCM_ITS ---
HPI - General General Date of Admission: 05/08/25 Date of Service: 05/08/25 Chief Complaint: Left breast cancer HPI Narrative GALINA RIVAS, is a 54 F who presents for left breast lumpectomy and sentinel lymph node biopsy as treatment for a recently discovered left breast cancer. [facility] Medical History Sterilization Wears glasses Left breast mass Abnormal mammogram Home Medications ?Medication ?Instructions ?Recorded ?Last Taken ?Type AquaSculpt 1 dose PO DAILY 03/29/25 History Allergy/AdvReac Type Severity Reaction Status Date / Time No Known Allergies Allergy Verified 04/25/25 11:07 Family History Uncle Myocardial infarction x3 Surgical History H/O wrist surgery H/O excision of mass Social History Smoking Status: Never smoker alcohol intake: never substance use type: does not use caffeine: No what type of physical activity do you participate in: none seatbelt use: always do you feel safe at home: Yes additional social history: - Dm Vital Signs Vital Signs Vital Signs: 05/08/25 06:31 05/08/25 06:31 05/08/25 07:28 Temperature 97.8 F 97.8 F Temperature Source Temporal Pulse Rate 73 73 Respiratory Rate 14 14 Respiratory Pattern Normal Blood Pressure 122/71 H 122/71 H Blood Pressure Mean 88 Blood Pressure Source Monitor Blood Pressure Position Semi-Fowlers Blood Pressure Location Right Arm Pulse Ox 100 100 Oxygen Delivery Method Room Air Room Air Weight Weight: 185 lb 3.013 oz Body Mass Index (BMI) 31.8 Physical Exam Const alert, oriented x3 and no apparent distress Results Imaging Radiology Impression [place] Node 05/08/25 07:03 IMPRESSION: Successful injection of the radiopharmaceutical subdermally at 1 cm above the left nipple for sentinel node imaging. Reading Location: [facility] Assessment & Plan Assessment/Plan (1) Invasive ductal carcinoma of left breast: PLAN: Plan Patient is a 54-year-old female who was recently found to have a left breast cancer. We discussed her surgical options and she has opted for a left breast lumpectomy with sentinel lymph node biopsy. We discussed the details of the planned procedure and she wished to proceed. Earlier today she underwent injection of Lymphoseek as well as placement of stereotactic wire localization. All questions and concerns were addressed. Charges/Coding Visit Charges Inpatient E&M: 02554 Init Hosp L2
--- NOTE | 2025-05-08 08:30 | MASS_PTH ---
PATIENT: GALINA RIVAS [place] [facility] [id number] AGE/SX: 54/F ROOM: RE05/08/[address]: Dr. Oswald Rodríguez MD : 1970 BED: DIS: 05/08/2025 SPEC #: [id number] RECD: 05/08/25 09:41 STATUS: ALYSSA REQ #: [id number] CAITLYN: 05/08/25 08:[address]: Oswald Rodríguez DEPT: SURGICAL PATHOLOGY RECD BY: Edison Girard ENTERED: 05/08/25 10:30 SP TYPE: Mass OTHR DR: No Primary Care Phys Tissues: A - Left breast, NOS B - LYMPH NODE BIOPSY C - LYMPH NODE BIOPSY D - LYMPH NODE BIOPSY E - LYMPH NODE BIOPSY Procedures: Frozen Section (charge) Immunohistochemical Stains Frozen Section Add'l ([facility]) Surgery Specimen Level IV Surgery Specimen Level V IHC Stain ADDITIONAL HEADER OPERATION: Breast, stereo wire localization left breast lumpectomy, sentinel node PRE-OP DIAGNOSIS: Invasive ductal carcinoma of left breast TISSUE SUBMITTED: A- Left breast mass *long stitch - lateral, short stitch- superior*, B- [place] lymph node #1 *207, C- [place] lymph node #2 *188, D- [place] lymph node #3 *401, E- [place] lymph node #4 *380, F- Axillary contents FROZEN SECTION DIAGNOSIS A. Left breast mass for gross assessment of margins: Closest margins at 4 mm (inferior) and 5 mm (superior). B. [place] lymph node, #1, biopsy: Negative for macrometastasis. C. [place] lymph node, #2, biopsy: Negative for macrometastasis. D. [place] lymph node, #3, biopsy: Negative for macrometastasis. E. [place] lymph node, #4, biopsy: Negative for macrometastasis. 05/08/2025 MICROSCOPIC DIAGNOSIS A. Left breast, mass, lumpectomy: - Invasive ductal carcinoma Grade 2 (tubule 3, nuclear 2, mitosis 1), surgical margins free. - 1.1 cm, pT1c pN1a(sn) - Ductal carcinoma in situ (DCIS), extensive, cribriform pattern, negative for comedo necrosis. - Scattered microcalcifications and biopsy clip site noted. 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 Note: IHCs for E-cadherin, CK5/6, and p40 support the diagnosis. B. Lymph node, sentinel #1, excision: - Positive for metastasis, 3 mm (1/1). - IHC for pankeratin highlights the tumor cells. C. Lymph node x2, sentinel #2, excision: - Negative for metastasis (0/2). - IHC for pankeratin supports the histologic impression. D. Lymph node, sentinel #3, excision: - Positive for isolated tumor cells (1/1). - IHC for pankeratin highlights the isolated tumor cells. E. Lymph node, sentinel #4, excision: - Positive for micrometastasis (/). - IHC for pankeratin highlights the small aggregates of tumor cells. F. Axilla, contents, excision: - Adipose tissue negative for metastasis. - No lymph nodes identified. SYNOPTIC REPORT FOR INVASIVE BREAST CARCINOMA Specimen (P=partial, M=mastectomy):?P Laterality (R=right, L=left):?L Focality (U=unifocal, M=multifocal):?U Tumor size (cm):?1.1 cm Histologic type:?invasive ductal, NST Histologic grade:?2 ??? Tubule score (1-3):?3 ??? Nuclear score (1-3):?2 ??? Mitotic score (1-3):?1 Skin, nipple epidermis, skeletal muscle (I=involved, N=negative, NA=not applicable):?N Lymphovascular invasion (E=extensive, F=focal, N=not identified):?N Margins of main specimen (P=positive, N=negative):?N Distance to closest margin of main specimen (mm):?7 mm Designation of closest margin of main specimen:?inferior Designation of other margins of main specimen </=1 mm:?NA Re-resection margin status (P=positive, N=negative, NA=not applicable):?NA ? DCIS (P=present, N=not identified):?P ?? Nuclear grade:?intermediate ?? [place] necrosis (P=present, N=not identified):?N ?? Extensive intraductal component (P=present, N=not identified):?P ?? Margins of main specimen (P=positive, N=negative):?N ?? Distance to closest margin of main specimen (mm):?< 1 mm ?? Designation of closest margin of main specimen:?inferior ?? Designation of other margins of main specimen </=2 mm:?NA ?? Longest span </= 2 mm to margin of main specimen (mm): 2 mm ?? Re-resection margin status (P=positive, N=negative, NA=not applicable):?NA ? Regional lymph nodes: ?? Total number of lymph nodes:?5 ?? Number of sentinel lymph nodes:?5 ?? Number with macrometastases:?1 ?? Number with micrometastases:?1 ?? Number with isolated tumor cells:?1 ?? Size of largest anshu metastasis (mm):?2 mm ?? Size of extranodal extension (mm) (N=not identified):?N ? Estrogen receptor:?positive (100%, strong intensity) Progesterone receptor:?positive (60%, intermediate intensity) HER2 IHC:?negative (sore 0) (performed at [facility]) HER2 FISH:?NA Ki67: 25% Specimen in which ER/WV/HER2 performed:?[id number] pTNM:?pT1c pN1a(sn) Additional findings:?scattered microcalcifications, biopsy clip site, fibroadenoma (3 mm), atypical ductal hyperplasia closely approaches the lateral surgical margin. Comment:?A radiograph of the breast specimen was performed to assist in the sectioning of the specimen and the image was reviewed and correlated with the histological findings. ? The above synoptic report complies, in slightly modified form, with the guidelines of the [employer] and the Association of Directors of Anatomic and Surgical Pathology for the reporting of cancer specimens ? MICROSCOPIC DESCRIPTION Slides are reviewed. ?All matched controls reacted appropriately.(all IHC except for HER2) These tests were developed and their performance characteristics determined by [facility]. They may not have been cleared or approved by the U.S. Food and Drug Administration. The FDA has determined that such clearance or approval is not necessary.? The above immunohistochemical?markers and/or special stains have been reviewed by the Pathologist. All controls show appropriate reactivity. (HER2) All immunohistochemistry, in situ hybridization, and histochemical tests were developed by and are performed at the [facility], [address] [place] [address], [place] [address]. All Immunofluorescent (IF)?tests were developed by and are performed at the [facility], [address] [place] [address] ?[id number]. All tests reported here, except those addressing HER2 overexpression as a predictive marker, have not been cleared by or approved by the US Food and Drug Administration (FDA). The laboratory is regulated under CLIA as qualified to perform high-complexity testing. The tests are used for clinical purposes. They should not be regarded as investigational or for research GROSS DESCRIPTION Received fresh in 5 containers for intraoperative consultation, labeled the patient's name and date of . Designated as: A. Left breast mass is a 7.5 x 5.2 x 2.4 cm lumpectomy with an exposed localization wire spanning from the attached 2.8 x 0.6 cm kolb skin ellipse. There is a short suture designated as superior and a long suture designated as lateral. The specimen is inked as follows: Superior: RedInferior: BlueMedial: YellowLateral: OrangeAnterior: uninked skinPosterior: Black The specimen is serially sectioned from medial to lateral (into 5 slices) revealing a 1.1 x 0.7 x 0.4 cm kolb-white indurated mass with irregular borders and surrounding, threadlike fibrosis spanning slices #4-#5. There is focal congestion of the surrounding parenchyma. A ribbon clip is identified within the mass in slice #4. The mass is located the following distances from each margin: Anterior: >2.5 cmInferior: 0.4 cmMedial: >2.0 cmLateral: 1.3 cmPosterior: >2.0 cmSuperior: 0.5 cm Review of postoperative imaging confirms the presence of a biopsy clip and localization wire.Quarter Lining Smoother sections are submitted, sequentially from slice #1 to slice #5 (medial to lateral), as follows: A1: Slice #1, medial, perpendicular (yellow/red/blue)A2: Slice #2, congested parenchyma, superior/inferior (red/blue)A3: Slice #3, congested parenchyma, superior (red)A4: Slice #4, mass to superior/inferior (red/blue)A5: Slice #4, biopsy site and mass to inferior (blue)A6: Slice #4, skinA7: Slice #5, posterior, perpendicular (black)A8: Slice #5, mass to lateral, perpendicular (orange)A9: Slice #5, fibrosis to lateral, perpendicular (orange) Cold ischemic time: 11 minutes Formalin fixation time: 9 hours, 50 minutes B. [place] lymph node is a 0.9 x 0.6 x 0.3 cm lymph node with attached fat. The lymph node is bisected revealing blue dye and is entirely submitted for frozen section diagnosis and subsequently placed cassette B1 for permanent sections. The remaining fat is placed in cassette B2. C. [place] lymph node #2 is a portion of fat containing 2 firm lymph nodes, 0.4 x 0.2 x 0.1 cm and 0.5 x 0.2 x 0.1 cm. No blue dye is present. The lymph nodes are entirely submitted for frozen section diagnosis and subsequently placed in cassette C1 for permanent sections. The remaining fat is placed in cassette C2. D. [place] lymph node #3 is a 1.4 x 0.8 x 0.4 cm lymph node with attached fat. The specimen is trisected revealing no blue dye. The specimen is entirely submitted for frozen section diagnosis and subsequently placed in cassette D1 for permanent sections. E. [place] lymph node #4 is a 1.1 x 0.6 x 0.6 cm lymph node with attached fat. The lymph node is trisected revealing no blue dye and is entirely submitted for frozen section diagnosis and subsequently placed in cassette E1 for permanent sections. The remaining fat is placed in cassette E2. F. Received in formalin labeled with the patient's name and date of . Designated as axillary contents is a 3.4 x 2.8 x 0.9 cm aggregate of fat. No definitive lymph nodes are identified. Entirely submitted in 3 cassettes. [place] 05/08/2025 CPT:[id number] ,[id number], [id number] ADDENDUM ADDENDUM ADDENDUM ADDENDUM ADDENDUM ADDENDUM ADDENDUM ADDENDUM ADDENDUM ADDENDUM ADDENDUM ADDENDUM ADDENDUM ADDENDUM ADDENDUM ADDENDUM ADDENDUM ADDENDUM ADDENDUM ADDENDUM ADDENDUM ADDENDUM ADDENDUM ADDENDUM ADDENDUM ADDENDUM ADDENDUM ADDENDUM ADDENDUM ADDENDUM ADDENDUM ADDENDUM ADDENDUM ADDENDUM ADDENDUM 06/21/2025 10:10 ADDENDUM 06/21/2025 10:10 ADDENDUM 06/21/2025 10:10 ADDENDUM 06/21/2025 10:10 ADDENDUM 06/21/2025 10:10 This addendum is added to incorporate an outside pathology consultation report. The case was examined at [facility] by Dr. Camacho (#[id number]) and the following diagnosis was rendered. A. Breast, left, mass, lumpectomy: Invasive ductal carcinoma, [place] Grade 2 (per outside report, measures 11mm in greatest dimension). Estrogen receptor: Positive (91-100%, strong intensity; outside slide reviewed). Progesterone receptor: Positive (51-60%, moderate intensity; outside slide reviewed). HER2 IHC: Negative (score 1+; outside slide reviewed). Ductal carcinoma in situ, intermediate grade (nuclear grade 2), with solid and cribriform architectural patterns, microcalcifications, and foci of necrosis. Atypical ductal hyperplasia. Per outside report, margins are negative for carcinoma. B. Lymph node, sentinel #1, excision: Metastatic carcinoma in 1 of 1 lymph nodes, measuring 3mm in extent (1/1). Extranodal extension is present (~2.3mm in extent). C. Lymph node x2, sentinel #2, excision: 2 lymph nodes, negative for carcinoma (0/2). D. Lymph node, sentinel #3, excision: Isolated tumor cells in 1 of 1 lymph nodes (0i+/1). E. Lymph node, sentinel #4, excision: Micrometastatic carcinoma in 1 of 1 lymph nodes (1mi/1). F. Axilla, contents, excision: Fibroadipose tissue; no lymph nodes identified. Please see complete above mentioned consultation report in EMR
[2025-05-08] MEDS: Midazolam 2 MG/2 ML Syringe IV (08:36)
--- NOTE | 2025-05-08 08:40 | PCM.OPRPT ---
Problems Associated Problem List Diagnoses (1) Invasive ductal carcinoma of left breast: Procedures Integumentary [id number]: [id number] Perq dev breast 1st [facility] Operative Report (Standard) Operative Information Date of Procedure: 05/08/25 Pre-Operative Diagnosis: Left breast cancer Post-Operative Diagnosis: Same Surgery/Procedure Performed: Left breast stereotactic localization wire placement music director: No Type of Anesthesia: Local RN Documented Start/Stop Times: Operation Date: 05/08/25 08:30 Case Time Into Pre-Op 05/08/25 06:03 Out of Pre-Op 05/08/25 08:31 Procedure Start Time: 08:00 Procedure Stop Time: 08:15 Select all DRAINS/GRAFTS/IMPLANTS that apply: Implanted device Implanted device details: Localization wire Estimated Blood Loss: Minimal Specimen collected: No Description of surgery: After obtaining informed consent, the patient was placed prone on the stereotactic table with the left breast suspended through the aperture and the table. The left breast was placed in a compression and multiple x-ray views were obtained until the plate was clearly identified. Once the clip was in the view 2 stereotactic views were then obtained. These 2 views were then used to target. After doing so the lesion was prepped and draped in the usual sterile manner. Local anesthetic was infiltrated into the area. The needle and wire were then inserted to the desired depth. Once in place the needle was retracted while the wire was left in place. Once the needle was removed, the wire was trimmed to length. A post wire placement image was obtained and showed the wire to be in good positioning. The patient was then taken out of compression and then 2 view mammograms were then performed. These showed good positioning of the wire in relation to the clip/lesion. Dressing was then applied. She was taken to the preop holding area in preparation of lumpectomy surgery. Surgical Findings: See procedure note Complications Complications: No Admit VTE Documentation VTE Present on Admission: No VTE Mechan Device Prophylaxis: SCD's VTE Pharm Prophylaxis ordered?: No Reason prophylaxis not ordered: Treatment Not Indicated
[2025-05-08] MEDS: Lidocaine 1% (5 ml sdv) 5 ML Vial IV (08:42)
[2025-05-08] MEDS: fentaNYL 100 MCG/2 ML Ampul 200 MCG IV (09:14)
[2025-05-08] MEDS: Lactated Ringers 2,000 ML 2000 ML IV (09:52)
[2025-05-08] MEDS: Bupiv/Epi 0.25% 30 ML Vial (10:59)
--- NOTE | 2025-05-08 11:02 | DCINST_ITS ---
Discharge Instructions Diet Discharge Diet: Light diet - advance as tolerated Activity Discharge Activity: Return to Normal Activity and May Shower May shower in (days): 1 Ice area for (Minutes): 30 Dressing / Incision Call your doctor if your incision/area has: Continuous Slow Oozing, Sudden Increased Bleeding, Increased Pain/ Swelling, Increased Redness, Foul Smelling Discharge and Swelling at the incision site Call your doctor if you observe: Fever of 101 or Higher Cleanse incision/area with: Soap & Water Follow Up Care Please Follow Up With: Oswald Rodríguez MD When: 1 to 2 weeks. Please call office to schedule appointment Test Results: Test results from this visit will be discussed in further detail at your follow- up appointment, if applicable. Discharge Plan Admission Primary Reason for Your Visit: Left breast lumpectomy Attending Provider: Oswald Rodríguez Primary Care Provider: Care Physician,Shasha Primary Instructions Print Language: Egyptian Discharge Orders/Prescriptions Prescriptions: New oxycodone 5 mg tablet 5 mg PO Q8H PRN (Reason: pain) 4 Days Qty: 10 0RF Continued AquaSculpt capsule 1 dose PO DAILY Referrals / Follow Up: Care Physician,No Primary [Primary Care Provider] - Disposition Disposition (needs filled in before D/C Order can be placed): Home, Self Care
--- NOTE | 2025-05-08 11:08 | OP.PCM_ITS ---
Problems Associated Problem List Diagnoses (1) Invasive ductal carcinoma of left breast: Oncology: Eder Requirements . Oncology surgical intervention performed: [place] Node Biopsy for Breast Cancer performed [place] Node Bx - Breast Cancer: Synoptic Portion: Element Response Options Operation performed with curative intent. Yes Tracer(s) used to identify sentinel nodes in the upfront surgery (non- neoadjuvant) setting (select all that apply). Dye; Radioactive tracer Tracer(s) used to identify sentinel nodes in the neoadjuvant setting (select all that apply).N/A.] All nodes (colored or non-colored) present at the end of a dye-filled lymphatic channel were removed. Yes All significantly radioactive nodes were removed. Yes All palpably suspicious nodes were removed. Yes Biopsy-proven positive nodes marked with clips prior to chemotherapy were identified and removed. N/A.] Multi Select Codes Integumentary Integumentary CPT Codes: 53336 Partial mastectomy Respiratory/Cardiovascular Resp/Cardiovascular CPT Codes: 38595 Biopsy/removal lymph nodes Operative Report (Standard) Operative Information Date of Procedure: 05/08/25 Pre-Operative Diagnosis: Left breast cancer Post-Operative Diagnosis: Same Surgery/Procedure Performed: 1. Left breast needle localized lumpectomy 2. Left axillary sentinel lymph node biopsy with blue dye and radioactive tracer music industry intern: Yes Capital Equipment Specialist: Katharine Bunn Tasks completed by certified first assistant: Closing and Retracting Additional elementary assistant principal?: No Type of Anesthesia: General and Local RN Documented Start/Stop Times: Operation Date: 05/08/25 08:30 Case Time Into Pre-Op 05/08/25 06:03 Out of Pre-Op 05/08/25 08:31 Anesthesia Start 05/08/25 08:36 Into Room 05/08/25 08:36 Procedure Start 05/08/25 09:13 Procedure End 05/08/25 11:10 Anesthesia End 05/08/25 11:16 Out of Room 05/08/25 11:16 Into Recovery 05/08/25 11:17 Procedure Start Time: 09:13 Procedure Stop Time: 11:09 Select all DRAINS/GRAFTS/IMPLANTS that apply: None Estimated Blood Loss: 10 mL Specimen collected: Yes Description of specimen(s) removed: 1. Left breast lumpectomy specimen 2. Left axillary sentinel lymph node x 4 3. Axillary tissue Description of surgery: The patient is a 54-year-old female who was recently discovered to have a left breast invasive carcinoma. This was originally biopsied under ultrasound guidance. We discussed surgical treatment options and she had elected for a lumpectomy and sentinel lymph node biopsy. We discussed the details of the planned procedure including the risks benefits and alternatives. She wished to proceed. Earlier in the day she had Lymphoseek radioactive tracer injected into the left periareolar area and also a stereotactic wire placement was also performed. She was brought to the operating room today following informed consent. She was placed supine on the operative table with arms outstretched and arm boards. A general endotracheal anesthesia was induced. Once adequately sedated, 5 cc of blue dye was injected into a periareolar subcutaneous pattern. This was then massaged into the breast tissue for about 5 minutes. The left breast and axilla were then prepped and draped in the usual sterile manner. The lumpectomy was performed first. This was performed by making an ellipse incision around the entry point of the guidewire. Bovie electrocautery was then used dissect down through subtendinous tissues down to and beyond the tip of the needle. Care was taken to stay relatively wide around the trajectory of the wire to ensure negative margins.. The specimen was then marked with a long stitch marking the lateral aspect and a short stitch marking the superior aspect . This was sent to radiology to confirm placement of the clip within the specimen. A clip was clearly within the specimen. Hemostasis at the lumpectomy site was very good. The left axillary sentinel lymph node biopsy was then performed. This was performed by injecting local anesthetic and the site of the planned incision. 15 blade was then used to make the skin incision. Bovie electrocautery was then used dissect down through subcutaneous tissues until the axillary fat pad was encountered. At this level neoprobe was then used to identify sentinel lymph nodes. A total of 4 sentinel lymph nodes were dissected and removed. All 4 were negative for pathology. No additional counts were identifiable after these 4 lymph nodes were removed. A small amount of fatty tissue was excised during the course of the dissection and this was sent to pathology as axillary tissue. Hemostasis was excellent at both sites. Both areas were copiously irrigated. Each wound was closed using 3-0 Vicryl and 4-0 Vicryl. Skin glue was applied to both incisions. This closed the incisions nicely. All counts were correct. Fluffs and a postoperative bra were then applied. She was awakened from anesthesia and taken recovery in good condition. Surgical Findings: See operative note Complications Complications: No Admit VTE Documentation VTE Present on Admission: No VTE Mechan Device Prophylaxis: SCD's VTE Pharm Prophylaxis ordered?: No Reason prophylaxis not ordered: Treatment Not Indicated
--- NOTE | 2025-05-08 11:23 | PCM.POST.ANE ---
Anesthesia: Postop Eval I Current Vital Signs Temperature: 97.4 F Pulse Rate: 80 Blood Pressure: 151/85 Respiratory Rate: 16 Pulse Ox: 10 Oxygen Delivery Method: Room Air Assessment Airway patent: Yes Spontaneous unlabored respirations: Yes Mental status: Asleep nausea: No Vomiting: No Anesthesia Complication: No Fluid Hydration Crystalloid volume administer (ml): 1,300 Total IV fluid infused: 1,300 Progress Note Anesthesia document: Postop Eval 1 completed: Yes
--- NOTE | 2025-05-08 15:55 | POSTOPAN2_ITS ---
Anesthesia Postop Eval I Sum Postop Eval Completion status Anesthesia document: Postop Eval 1 completed: Yes Anesthesia Postop Eval I Summary Anesthesia Postop Eval I Summary: Anesthesia Postop Eval I: Assessment Summary Airway patent Yes 05/08/25 11:23 INSURANCE SALES [email or web address] Spontaneous unlabored Yes 05/08/25 11:23 INSURANCE SALES [email or web address] respirations Mental status Asleep 05/08/25 11:23 INSURANCE SALES [email or web address] nausea No 05/08/25 11:23 INSURANCE SALES [email or web address] Vomiting No 05/08/25 11:23 INSURANCE SALES [email or web address] Anesthesia Postop Eval I: Fluid Summary Crystalloid volume administer 1,300 05/08/25 11:23 INSURANCE [email or web address] (ml) Colloids volume administered ( ml) Blood Product volume administered (ml) Total IV fluid infused 1,300 05/08/25 11:23 INSURANCE [email or web address] Anesthesia Postop Eval I: Summary Notes Anesthesia Complication No 05/08/25 11:23 INSURANCE SALES [email or web address] Anesthesia Complication Comment: Post-operative progress note Anesthesia: Postop Eval II Evaluation Mental status: Awake and Calm Pain Level: 0 nausea: No Vomiting: No Complications Anesthesia Complication: No
--- NOTE | 2025-05-08 15:55 | PCM.POSTANE2 ---
Anesthesia Postop Eval I Sum Postop Eval Completion status Anesthesia document: Postop Eval 1 completed: Yes Anesthesia Postop Eval I Summary Anesthesia Postop Eval I Summary: Anesthesia Postop Eval I: Assessment Summary Airway patent Yes 05/08/25 11:23 [email or web address] [email or web address] [email or web address] Spontaneous unlabored Yes 05/08/25 11:23 TECHNOLOGY PROGRAM [email or web address] respirations Mental status Asleep 05/08/25 11:23 [email or web address] [email or web address] [email or web address] nausea No 05/08/25 11:23 TECHNOLOGY PROGRAM [email or web address] Vomiting No 05/08/25 11:23 TECHNOLOGY PROGRAM [email or web address] Anesthesia Postop Eval I: Fluid Summary Crystalloid volume administer 1,300 05/08/25 11:23 TECHNOLOGY PROGRAM [email or web address] (ml) Colloids volume administered ( ml) Blood Product volume administered (ml) Total IV fluid infused 1,300 05/08/25 11:23 TECHNOLOGY PROGRAM [email or web address] Anesthesia Postop Eval I: Summary Notes Anesthesia Complication No 05/08/25 11:23 TECHNOLOGY PROGRAM [email or web address] Anesthesia Complication Comment: Post-operative progress note Anesthesia: Postop Eval II Evaluation Mental status: Awake and Calm Pain Level: 0 nausea: No Vomiting: No Complications Anesthesia Complication: No
== END 2025-05-08 14:04 | disposition home or self-care (01) ==
LOC: SDC 05:36 → AC 05:37
PROVIDERS: Referring Provider Surgery; Visit Provider Surgery
PROC: 0HBV0ZZ Excision of Bilateral Breast, Open Approach (ICD-10-PCS; CPT 19302; principal; 2025-05-08 08:15)
DX: C50.912 Malignant neoplasm of unspecified site of left female breast (principal); C77.9 Secondary and unspecified malignant neoplasm of lymph node, unspecified; R92.0 Mammographic microcalcification found on diagnostic imaging of breast; D24.2 Benign neoplasm of left breast
CPT/HCPCS: 19301; 38525; 38900; 00400; 19281; 38792; 76098; 88305; 88307; 88331; 88332; 88341; 88342; A4648; A9520; A4216; J2405; Q9968

== ENCOUNTER → 2025-05-27 | Outpatient (CLI) | payer BC, SELFPAY ==
--- NOTE | 2025-05-27 09:07 | NM_ITS ---
PROCEDURE: BONE SCAN WHOLE BODY 05/27/2025 REASON FOR EXAM: STAGING BREAST CANCER TECHNIQUE: Procedure Code: NMBO Modality: NM Procedure: BONE SCAN WHOLE BODY Whole-body bone scan with anterior and posterior views. Imaging at 3.5 hours. RADIOPHARMACEUTICAL: 28 mCi Technetium-99m MDP IV COMPARISON: None FINDINGS: Bones: Homogeneous uptake. No evidence of bony metastasis. Kidneys: Kidneys are visualized. NM/Bone Scan Whole Body IMPRESSION: Homogeneous uptake. No evidence of bony metastasis. Reading Location: [id number]
--- NOTE | 2025-05-27 16:05 | CT_ITS ---
PROCEDURE: CT CHEST, ABD, PEL W/CONTRAST 05/27/2025 REASON FOR EXAM: STAGING BREAST CANCER. Initial imaging. TECHNIQUE: Chest, abdomen and pelvis CT with intravenous contrast. Coronal and Sagittal reconstruction series were provided. One or more dose reduction techniques were used (e.g., Automated exposure control, adjustment of the mA and/or kV according to patient size, use of iterative reconstruction technique. PATIENT PREPARATION: Per protocol ORAL CONTRAST TYPE: None. CONTRAST: Isovue-300 VOLUME: 100mL RADIATION DOSE SUMMARY: CTDlvol: 46.2 mGy DLP: 1295.66 mGycm COMPARISON: None. FINDINGS: CT CHEST: Lower neck:The thyroid gland is normal. There is no supraclavicular lymphadenopathy. Mediastinum:No abnormal masses or lymphadenopathy. Heart and Vasculature:The heart size is normal. There is no pericardial effusion. There is no calcific vascular disease of the thoracic aorta or coronary arteries evident. Esophagus:Normal. Chest wall:There is a mass in the medial left breast, centered at the 9 o'clock position, measuring 5.8 x 4.5 x 2.9 cm. There is a left axillary lymph node measuring 2.5 x 1.9 cm. There are findings of DISH in the mid and lower thoracic spine. Lungs, airways and pleura: There are no pulmonary nodules or masses. There is no significant interstitial or alveolar lung disease. There are no pleural effusions. CT ABDOMEN/PELVIS: Liver: Normal size. No mass. Gallbladder: Normal. Spleen: Normal size. There is a benign splenule posterior to the spleen. Pancreas: Normal size without evidence of surrounding inflammation or ductal dilation. There is a 5 mm in diameter cyst in the body of the pancreas. Adrenals: Normal. Kidneys: Normal renal sizes. No hydronephrosis. Bladder: Normal unenhanced appearance. Reproductive Organs: Normal uterine size and contour. Ovaries are unremarkable. There are Essure devices in both uterine tubes. Bowel: No significant abnormality. Appendix: Normal. Lymph nodes: There are multiple reactive mesenteric lymph nodes identified. There is no significant retroperitoneal lymphadenopathy. Vasculature: Mild diffuse atherosclerotic calcifications are noted. Peritoneum / Retroperitoneum: There are no abnormal intra or retroperitoneal masses or fluid collections. There are no abdominal wall defects. Bones: There are no significant bony abnormalities of the abdomen or pelvis. CT/CT Chest, Abd, Pel w/Contrast IMPRESSION: 1. Mass in the medial left breast, centered at the 9 o'clock position, consist ent with a primary breast carcinoma. 2. Enlarged left axillary lymph nodes consistent with metastatic disease. 3. Multiple reactive mesenteric lymph nodes of uncertain clinical significance . 4. Other findings as noted. Reading Location: [place] [id number]
== END | disposition home or self-care (01) ==
PROVIDERS: Referring Provider Internal Medicine Hematology & Oncology; Visit Provider Internal Medicine Hematology & Oncology
DX: C50.912 Malignant neoplasm of unspecified site of left female breast (principal); C77.9 Secondary and unspecified malignant neoplasm of lymph node, unspecified
CPT/HCPCS: 71260; 74177; 78306; A9503; Q9967